=== PATIENT | male | born 1965 | race Caucasian/White ===

== ENCOUNTER → 2017-08-10 | Outpatient (CLI) | payer MEDICARE, OTHER ==
[~2017-08-10] VITALS: Ht 185.4 cm; Wt 70.8 kg
[~2017-08-10] MED LIST: ASPI-183 PO; CHLORHEXIDINE GLUCONATE 2 % 1 PACK (2 CLOTHS) TOPICAL PRN; DILA2TAB4 PO; DIPH2.5T14 PO; FURO40TA PO; GABA600T PO; INSULIN HUMAN REGULAR 1,000 UNITS/10 ML VIAL SQ PRN; LACTATED RINGER'S 1000 ML IV PRN; LIDOCAINE HCL 1% PF 5 ML SYRINGE OTHER ONE; LISI10TA3 PO; METOPROLOL TARTRATE 25 MG TAB PO PRN; MORP1TAB25 PO; MORP1TAB26 PO; PANT20TA2 PO; PERC10TA27 PO; POVIDONE IODINE 5% (ANTISEPSIS KIT) 4 APPLICATIONS EACH NARE PRN; PRED5TAB PO; PROPOFOL 200 MG/20 ML AMP IV ONE; SODIUM CHLORID 0.9% 500 ML IV PRN
--- NOTE | 2017-08-10 10:53 | PD.PROCEDR ---
GI Procedure Referring physician Dr. Valdez PROCEDURE PERFORMED Upper endoscopy with biopsy Colonoscopy with biopsy, snare polypectomy INDICATION FOR PROCEDURE Diarrhea, patient has history of lung cancer was on chemotherapy therapy until recently PROCEDURE: The procedure, risks and benefits were discussed with Mr. Edward and informed consent was obtained. Anesthesia sedated him with Diprivan. He was placed in the left lateral decubitus position. EGD: The Pentax videoscope was introduced through the oropharynx and advanced to the second portion of the duodenum under direct visualization. Retroflexion was performed in the stomach. Biopsy from the EG junction, from the duodenum, from the antrum Colonoscopy: The Pentax videoscope was introduced through the rectum and advanced to cecum. Retroflexion was performed in the rectum. Colonic prep was fair ESTIMATED BLOOD LOSS: None SPECIMENS REMOVED: GE junction, antrum, duodenum for diarrhea evaluation, ascending colon, sigmoid , sigmoid polyp COMPLICATIONS: None IMPRESSION: Upper endoscopy Irregular Z line biopsy was done at the EG junction Mild to moderate gastritis biopsy was done from the antrum to rule out H. pylori Duodenum was normal but biopsy was done for the diarrhea evaluation Colonoscopy Some stool throughout the colon may interfere with the vision of small lesion 8 mm polyp in the sigmoid removed by snare Random biopsy from the ascending colon from normal mucosa Biopsy from the sigmoid there was some redness in the sigmoid most likely nonspecific Internal hemorrhoid The diarrhea possibly related to side effect from chemotherapy PLAN: Await biopsy results No NSAIDs Follow up in office in 2-3 weeks Mark Foster MD Aug 10, 2017 10:53
[2017-08-10 11:30] VITALS: BP 144/84; PULSE 110; RESP 18; TEMP 98.1; O2SAT 97
--- NOTE | 2017-08-10 18:42 | EKG ---
Date Performed: 08/10/2017 Time Performed: 08:11:04 PTAGE: 51 years EKG: SINUS TACHYCARDIA ABNORMAL RHYTHM ECG NO PREVIOUS TRACING DOCTOR: Yomi White Interpretating Date/Time 08/10/2017 18:40:42
== END ==
LOC: HEND 07:46
PROVIDERS: ATTEND Hospitalist
DX: R19.7 Diarrhea, unspecified (principal); Z85.118 Personal history of other malignant neoplasm of bronchus and lung; K22.9 Disease of esophagus, unspecified; K29.70 Gastritis, unspecified, without bleeding; D12.5 Benign neoplasm of sigmoid colon; K64.8 Other hemorrhoids; R00.0 Tachycardia, unspecified
CPT/HCPCS: 88305; 88312; 93005

== ENCOUNTER 2017-10-23 07:53 | Inpatient (IN) ==
[2017-10-29] MEDS ORDERED: Dextrose 50% in Water 50 ML Vial IV.PUSH PRN
[2017-10-29] MEDS ORDERED: Bisacodyl 10 MG Supp RECTAL PRN
[2017-10-29] MEDS ORDERED: hydrALAZINE 10 MG Tablet PO PRN
[2017-10-29] MEDS ORDERED: Vancomycin Consult Pharmacy 1 EACH OTHER SCH
[2017-10-29] MEDS: dilTIAZem 60 MG Tablet PO SCH ×5 (00:26→23:54)
[2017-10-29] MEDS: Vancomycin Inj 1,250 MG in Sodium Chlor 0.9% Inj 250 ML IV.SIG SCH ×2 (03:34→18:24)
[2017-10-29] MEDS: oxyCODONE/Acetaminophen 10/325 Tablet PO PRN ×3 (03:41→19:42)
[2017-10-29 04:47] LABS: Baso % (Auto) 0.7 % (0.0-2.0); Eos # (Auto) 0.2 th/mm3 (0.0-0.4); Eos % (Auto) 5.9 % (0.0-4.0); Hematocrit 30.8 % (39.0-51.0); Hemoglobin 10.9 gm/dL (13.0-17.0); Lymph % (Auto) 23.3 % (9.0-44.0); Mean Corpuscular HGB Conc 35.3 % (32.0-36.0); Mean Corpuscular Hemoglobin 31.9 pg (27.0-34.0); Mean Corpuscular Volume 90.2 fL (80.0-100.0); Mean Platelet Volume 9.2 fL (7.0-11.0); Mono # (Auto) 0.5 th/mm3 (0.0-0.9); Neut # (Auto) 2.4 th/mm3 (1.8-7.7); Neut % (Auto) 58.1 % (16.0-70.0); Platelet Count 124 th/mm3 (150-450); Red Blood Count 3.42 mil/mm3 (4.50-5.90); Red Cell Distribution Width 13.9 % (11.6-17.2); White Blood Count 4.1 th/mm3 (4.0-11.0)
[2017-10-29 05:08] LABS: Anion Gap 9 meq/L (5-15); Blood Urea Nitrogen 10 mg/dL (7-18); Calcium 8.3 mg/dL (8.5-10.1); Carbon Dioxide 32.5 meq/L (21.0-32.0); Chloride 93 meq/L (98-107); Glomerular Filtration Rate Greater Than 89 mL/min (>89); Glucose,Random 109 mg/dL (74-106); Potassium 3.1 meq/L (3.5-5.1); Sodium 134 meq/L (136-145)
[2017-10-29] MEDS: Morphine Sulfate 100 MG SR Tablet PO SCH ×3 (06:23→21:55)
[2017-10-29] MEDS: Gabapentin 300 MG Capsule PO SCH ×3 (09:54→17:58)
[2017-10-29] MEDS: Senna/Docusate Sodium 8.6/50 MG Tablet PO SCH ×2 (09:54→21:44)
[2017-10-29] MEDS: Albumin Human 25% Inj 50 ML IV.SIG SCH ×2 (09:54→17:54)
[2017-10-29] MEDS: Famotidine 20 MG Tablet PO SCH ×2 (09:54→21:47)
[2017-10-29] MEDS: Enoxaparin Inj 40 MG/0.4 ML Syringe SQ SCH (12:10)
[2017-10-29 15:05] LABS: Anion Gap 9 meq/L (5-15); Blood Urea Nitrogen 9 mg/dL (7-18); Carbon Dioxide 31.9 meq/L (21.0-32.0); Chloride 93 meq/L (98-107); Glomerular Filtration Rate Greater Than 89 mL/min (>89); Sodium 134 meq/L (136-145)
[2017-10-29 15:06] LABS: Calcium 8.2 mg/dL (8.5-10.1); Glucose,Random 91 mg/dL (74-106)
[2017-10-29 15:20] LABS: Potassium 2.6 meq/L (3.5-5.1)
[2017-10-29] MEDS ORDERED: Potassium Chlor 20 mEq Premix 20 MEQ/100 ML PIGGYBACK IV.SIG ONE (16:10)
--- NOTE | 2017-10-29 16:10 | P.PN ---
Subjective Interval history: Follow-up edema. States he is swelling slightly better able to ambulate Physical Exam Vital signs: Vital Signs 10/29/17 03:00 10/29/17 04:00 10/29/17 04:43 Temperature Pulse Rate 109 H 121 H Respiratory Rate 19 18 Blood Pressure 88/59 L Pulse Oximetry 99 10/29/17 05:00 10/29/17 06:00 10/29/17 07:00 Temperature Pulse Rate 101 H 107 H 106 H Respiratory Rate 14 Blood Pressure 95/67 L Pulse Oximetry 10/29/17 10:00 10/29/17 11:00 10/29/17 12:06 Temperature 97.9 F Pulse Rate 89 105 H Respiratory Rate 18 15 Blood Pressure 83/55 L Pulse Oximetry 100 10/29/17 15:00 Temperature 98.2 F Pulse Rate 113 H Respiratory Rate 15 Blood Pressure 83/54 L Pulse Oximetry Intake & Output 10/28/17 10/29/17 10/29/17 18:59 06:59 18:59 Intake Total 562 / 562 Output Total 1400 / 1400 Balance -838 / -838 Weight 72 kg Intake: IV 262 / 262 Vancomycin Inj 1,250 MG In NS 262 / 262 Inj 250 ML @ 250 mls/hr IV.SIG Q12H [facility] Rx#:[id number] Oral 300 / 300 Output: Urine 1400 / 1400 Other: # Bowel Movements 1 GENERAL: SKIN: Warm and dry. Erythema about the same in the lower abdominal area CARDIOVASCULAR: Regular rate and rhythm without murmurs, gallops, or rubs. RESPIRATORY: Breath sounds equal bilaterally. No accessory muscle use. GASTROINTESTINAL: Abdomen soft, non-tender, nondistended. MUSCULOSKELETAL: No cyanosis with bilateral lower extremity pitting edema. Scrotal edema is improving BACK: Nontender without obvious deformity. No CVA tenderness. Results - Labs CBC & Chem 7: 10/29/17 03:44 10/29/17 12:03 Labs: Laboratory Results - last 24 hr 10/27/17 10/27/17 10/28/17 04:56 04:56 05:18 WBC 13.8 H RBC 3.90 L Hgb 12.3 L Hct 35.8 L MCV 91.8 MCH 31.5 MCHC 34.3 RDW 14.9 Plt Count 157 MPV 9.1 Neut % (Auto) 73.1 H Lymph % (Auto) 11.2 Rhea % (Auto) 12.8 H Eos % (Auto) 2.5 Baso % (Auto) 0.4 Neut # (Auto) 10.1 H Lymph # (Auto) 1.5 Rhea # (Auto) 1.8 H Eos # (Auto) 0.3 Baso # (Auto) 0.0 CBC Comment DIFF FINAL WBC Differential Differential Comment Sodium 129 L 132 L Potassium 4.5 3.1 L D Chloride 95 L 94 L Carbon Dioxide 25.6 26.4 Anion Gap 8 12 BUN 19 H 15 Creatinine 0.74 0.88 Estimated GFR 111 91 Random Glucose 115 H 127 H Hemoglobin A1c 4.9 Calcium 8.1 L 7.8 L Phosphorus 3.1 3.6 Magnesium 2.2 1.9 Total Bilirubin 0.6 0.5 AST 38 H 47 H ALT 25 32 Alkaline Phosphatase 91 101 Total Protein 6.4 6.3 L Albumin 2.3 L 2.2 L Free T4 1.46 TSH 3rd Generation 2.920 10/28/17 10/29/17 10/29/17 05:18 03:44 03:44 WBC 7.1 4.1 RBC 3.51 L 3.42 L Hgb 11.2 L 10.9 L Hct 32.5 L 30.8 L MCV 92.4 90.2 MCH 32.0 31.9 MCHC 34.6 35.3 RDW 14.4 13.9 Plt Count 122 L 124 L MPV 9.4 9.2 Neut % (Auto) 63.8 58.1 Lymph % (Auto) 17.3 23.3 Rhea % (Auto) 13.4 H 12.0 H Eos % (Auto) 4.9 H 5.9 H Baso % (Auto) 0.6 0.7 Neut # (Auto) 4.5 2.4 Lymph # (Auto) 1.2 1.0 Rhea # (Auto) 1.0 H 0.5 Eos # (Auto) 0.3 0.2 Baso # (Auto) 0.0 0.0 CBC Comment DIFF FINAL WBC Differential . Differential Comment Auto diff final Sodium 134 L Potassium 3.1 L Chloride 93 L Carbon Dioxide 32.5 H Anion Gap 9 BUN 10 Creatinine 0.59 L Estimated GFR Greater than 89 Random Glucose 109 H Hemoglobin A1c Calcium 8.3 L Phosphorus Magnesium 2.0 Total Bilirubin AST ALT Alkaline Phosphatase Total Protein Albumin Free T4 TSH 3rd Generation 10/29/17 12:03 WBC RBC Hgb Hct MCV MCH MCHC RDW Plt Count MPV Neut % (Auto) Lymph % (Auto) Rhea % (Auto) Eos % (Auto) Baso % (Auto) Neut # (Auto) Lymph # (Auto) Rhea # (Auto) Eos # (Auto) Baso # (Auto) CBC Comment WBC Differential Differential Comment Sodium 134 L Potassium 2.6 L* Chloride 93 L Carbon Dioxide 31.9 Anion Gap 9 BUN 9 Creatinine 0.55 L Estimated GFR Greater than 89 Random Glucose 91 Hemoglobin A1c Calcium 8.2 L Phosphorus Magnesium Total Bilirubin AST ALT Alkaline Phosphatase Total Protein Albumin Free T4 TSH 3rd Generation Assessment and Plan - Assessment (1) Cirrhosis of liver Code(s): K74.60 - Unspecified cirrhosis of liver Status: Acute - Plan PROCEDURE PERFORMED: Left axillofemoral-femoral with 8 mm ringed PTFE. 1. Respiratory insufficiency. Resolved 2. PAD with infrarenal aortic occlusion. Status post left ex fem-fem bypass. Stable continue aspirin Lipitor 3. Hypertension. Borderline low continue antihypertensives and pain medications with hold parameters 4. Anasarca with hypoalbuminemia history cirrhosis of liver. Continue IV diuresis with Lasix, Zaroxolyn and IV albumin 5. Chronic pain. Counseled regarding narcotics. Patient followed by a local oncologist who prescribed his pain medication history of metastatic lung cancer 6. Cellulitis with recent vascular intervention with prosthetics. No fever or leukocytosis Ct IV vanco 7. Hypokalemia. Will replace with 40 mEq p.o. potassium 3 times a day and 20 mg IV potassium 1 repeat BMP and magnesium in the morning Patient is GI prophylaxis with Pepcid 20 mg b.i.d. DVT prophylaxis- on Lovenox 40 mg daily
[2017-10-29] MEDS: traZODone 50 MG Tablet PO SCH (21:46)
[2017-10-30] MEDS ORDERED: Pharmacy Ordered Lab Info OTHER ONE (03:45)
[2017-10-30] MEDS: Vancomycin Inj 1,250 MG in Sodium Chlor 0.9% Inj 250 ML IV.SIG SCH ×2 (04:01→16:12)
[2017-10-30 04:15] LABS: Anion Gap 10 meq/L (5-15); Blood Urea Nitrogen 10 mg/dL (7-18); Calcium 8.2 mg/dL (8.5-10.1); Carbon Dioxide 29.6 meq/L (21.0-32.0); Chloride 97 meq/L (98-107); Glomerular Filtration Rate Greater Than 89 mL/min (>89); Glucose,Random 117 mg/dL (74-106); Potassium 3.1 meq/L (3.5-5.1); Sodium 137 meq/L (136-145)
[2017-10-30 04:17] LABS: Vancomycin,Trough 12.7 mcg/mL (5.0-10.0)
[2017-10-30] MEDS: Morphine Sulfate 100 MG SR Tablet PO SCH ×3 (06:10→21:19)
[2017-10-30] MEDS: dilTIAZem 60 MG Tablet PO SCH ×4 (08:46→23:55)
[2017-10-30] MEDS: Albumin Human 25% Inj 50 ML IV.SIG SCH ×2 (09:08→17:15)
[2017-10-30] MEDS: Famotidine 20 MG Tablet PO SCH ×2 (09:10→21:20)
[2017-10-30] MEDS: Gabapentin 300 MG Capsule PO SCH ×3 (09:10→17:15)
[2017-10-30] MEDS: oxyCODONE/Acetaminophen 10/325 Tablet PO PRN ×3 (09:13→22:34)
[2017-10-30] MEDS: Senna/Docusate Sodium 8.6/50 MG Tablet PO SCH ×2 (09:15→21:20)
--- NOTE | 2017-10-30 10:55 | P.PN ---
Subjective Interval history: Follow-up bilateral lower extremity edema. States swelling is improved even though the weight has slightly increased. Plan to be discharged to SNF tomorrow after removal of packing by vascular surgery who wanted to continue IV vancomycin for another 7 days. Vascular access consulted for midline placement. Physical Exam Vital signs: Vital Signs 10/29/17 11:00 10/29/17 12:06 10/29/17 15:00 Temperature 97.9 F 98.2 F Pulse Rate 105 H 113 H Respiratory Rate 18 15 15 Blood Pressure 83/55 L 83/54 L Pulse Oximetry 100 10/29/17 16:00 10/29/17 17:00 10/29/17 18:00 Temperature Pulse Rate 108 H 108 H 116 H Respiratory Rate Blood Pressure Pulse Oximetry 10/29/17 19:00 10/29/17 19:31 10/29/17 20:00 Temperature 98.6 F Pulse Rate 123 H 120 H 104 H Respiratory Rate 22 Blood Pressure 109/61 Pulse Oximetry 10/29/17 20:30 10/29/17 21:00 10/29/17 22:00 Temperature Pulse Rate 114 H 118 H Respiratory Rate 20 Blood Pressure Pulse Oximetry 10/29/17 22:45 10/29/17 23:00 10/29/17 23:15 Temperature 98.1 F Pulse Rate 97 H 104 H Respiratory Rate 18 19 Blood Pressure 82/50 L Pulse Oximetry 96 10/30/17 00:00 10/30/17 01:00 10/30/17 02:00 Temperature Pulse Rate 105 H 98 H 102 H Respiratory Rate Blood Pressure Pulse Oximetry 10/30/17 03:00 10/30/17 04:00 10/30/17 05:00 Temperature 98.2 F Pulse Rate 93 H 104 H 96 H Respiratory Rate 20 Blood Pressure 84/50 L Pulse Oximetry 97 10/30/17 06:00 Temperature Pulse Rate 97 H Respiratory Rate Blood Pressure Pulse Oximetry Intake & Output 10/29/17 10/30/17 10/30/17 18:59 06:59 18:59 Intake Total 780 / 780 1055.0 / 1055.0 Output Total 750 / 750 625 / 625 Balance 30 / 30 430.0 / 430.0 Weight 73.1 kg Intake: IV 300 / 300 575.0 / 575.0 Flexbumin 25% Inj 50 ML @ 60 50 / 50 50 / 50 mls/hr IV.SIG BIDPC [facility] Rx#: [id number] Vancomycin Inj 1,250 MG In NS 250 / 250 525.0 / 525.0 Inj 250 ML @ 250 mls/hr IV.SIG Q12H [facility] Rx#:[id number] Oral 480 / 480 480 / 480 Output: Urine 750 / 750 625 / 625 Other: # Voids 3 Date of Last Bowel Movement 10/29/17 Narrative: SKIN: Warm and dry. Erythema about the same in the lower abdominal area CARDIOVASCULAR: Regular rate and rhythm without murmurs, gallops, or rubs. RESPIRATORY: Breath sounds equal bilaterally. No accessory muscle use. GASTROINTESTINAL: Abdomen soft, non-tender, nondistended. MUSCULOSKELETAL: No cyanosis with bilateral lower extremity pitting edema. Scrotal edema is improving BACK: Nontender without obvious deformity. No CVA tenderness. Results - Labs CBC & Chem 7: 10/29/17 03:44 10/30/17 03:33 Laboratory Results - last 24 hr 10/29/17 10/30/17 12:03 03:33 Sodium 134 L 137 Potassium 2.6 L* 3.1 L Chloride 93 L 97 L Carbon Dioxide 31.9 29.6 Anion Gap 9 10 BUN 9 10 Creatinine 0.55 L 0.70 Estimated GFR Greater than 89 Greater than 89 Random Glucose 91 117 H Calcium 8.2 L 8.2 L Vancomycin Trough 12.7 H - Procedures Left axillofemoral-femoral with 8 mm ringed PTFE. Assessment and Plan - Assessment (1) Cirrhosis of liver Code(s): K74.60 - Unspecified cirrhosis of liver Status: Acute - Plan 1. Respiratory insufficiency. Resolved 2. PAD with infrarenal aortic occlusion. Status post left ex fem-fem bypass. Stable continue aspirin Lipitor 3. Hypertension. Borderline low continue antihypertensives and pain medications with hold parameters 4. Anasarca with hypoalbuminemia history cirrhosis of liver. Still with significant fluid overload but responding to diuresis. Continue IV Lasix dose increased yesterday, Zaroxolyn and IV albumin 5. Chronic pain. Counseled regarding narcotics. Patient followed by a local oncologist who prescribed his pain medication history of metastatic lung cancer 6. Cellulitis with recent vascular intervention with prosthetics. No fever or leukocytosis Ct IV vanco. Midline requested 7. Hypokalemia. Increase to 60 mEq p.o. potassium 3 times a day and repeat BMP and magnesium in the morning Patient is GI prophylaxis with Pepcid 20 mg b.i.d. DVT prophylaxis- on Lovenox 40 mg daily Discharge Planning: SNF tomorrow
[2017-10-30] MEDS: Enoxaparin Inj 40 MG/0.4 ML Syringe SQ SCH (13:40)
[2017-10-30 15:43] LABS: Magnesium 1.9 mg/dL (1.5-2.5)
[2017-10-30] MEDS: traZODone 50 MG Tablet PO SCH (21:21)
[2017-10-31] MEDS: oxyCODONE/Acetaminophen 10/325 Tablet PO PRN ×4 (02:23→19:48)
[2017-10-31] MEDS: Vancomycin Inj 1,250 MG in Sodium Chlor 0.9% Inj 250 ML IV.SIG SCH ×2 (03:16→18:30)
[2017-10-31] MEDS: dilTIAZem 60 MG Tablet PO SCH ×5 (05:14→23:53)
[2017-10-31] MEDS: Morphine Sulfate 100 MG SR Tablet PO SCH ×3 (05:31→22:01)
[2017-10-31 06:34] LABS: Anion Gap 10 meq/L (5-15); Blood Urea Nitrogen 13 mg/dL (7-18); Calcium 8.6 mg/dL (8.5-10.1); Carbon Dioxide 27.4 meq/L (21.0-32.0); Chloride 100 meq/L (98-107); Glomerular Filtration Rate Greater Than 89 mL/min (>89); Glucose,Random 116 mg/dL (74-106); Potassium 3.4 meq/L (3.5-5.1); Sodium 137 meq/L (136-145)
[2017-10-31] MEDS: Albumin Human 25% Inj 50 ML IV.SIG SCH (08:30)
[2017-10-31] MEDS: Famotidine 20 MG Tablet PO SCH ×2 (08:32→22:00)
[2017-10-31] MEDS: Gabapentin 300 MG Capsule PO SCH ×3 (08:32→18:31)
[2017-10-31] MEDS: Senna/Docusate Sodium 8.6/50 MG Tablet PO SCH ×2 (08:35→22:01)
[2017-10-31] MEDS: Enoxaparin Inj 40 MG/0.4 ML Syringe SQ SCH (11:22)
[2017-10-31] MEDS ORDERED: Pharmacy Ordered Lab Info OTHER ONE (15:45)
--- NOTE | 2017-10-31 17:30 | P.PN ---
Subjective Interval history: Follow up for PVD s/p surgery, possible cellulitis, Cirrhosis. Patient is currently doing well. No fever, chills. No CP, SOB. Physical Exam Vital signs: Vital Signs 10/30/17 17:43 10/30/17 19:00 10/30/17 20:00 Temperature 98.1 F Pulse Rate 111 H 100 H 110 H Respiratory Rate 18 Blood Pressure 86/57 L Pulse Oximetry 98 10/30/17 21:00 10/30/17 22:00 10/30/17 23:00 Temperature Pulse Rate 102 H 104 H 89 Respiratory Rate Blood Pressure Pulse Oximetry 10/30/17 23:27 10/31/17 00:00 10/31/17 01:00 Temperature 98.0 F Pulse Rate 100 H 92 H 91 H Respiratory Rate 15 Blood Pressure 85/55 L Pulse Oximetry 98 10/31/17 02:00 10/31/17 03:00 10/31/17 03:35 Temperature 98.2 F Pulse Rate 92 H 93 H 84 Respiratory Rate 16 Blood Pressure 81/52 L Pulse Oximetry 99 10/31/17 04:09 10/31/17 05:00 10/31/17 06:00 Temperature Pulse Rate 62 86 77 Respiratory Rate Blood Pressure Pulse Oximetry 10/31/17 07:00 10/31/17 08:00 10/31/17 09:00 Temperature 97.6 F Pulse Rate 88 92 H 90 Respiratory Rate 16 Blood Pressure 102/81 Pulse Oximetry 100 10/31/17 10:00 10/31/17 11:00 10/31/17 12:00 Temperature 97.9 F Pulse Rate 104 H 91 H 98 H Respiratory Rate 14 Blood Pressure 105/65 Pulse Oximetry 99 10/31/17 13:00 10/31/17 14:00 10/31/17 15:00 Temperature 97.7 F Pulse Rate 102 H 94 H 93 H Respiratory Rate 16 Blood Pressure 108/57 L Pulse Oximetry 100 10/31/17 16:00 Temperature Pulse Rate 94 H Respiratory Rate Blood Pressure Pulse Oximetry Intake & Output 10/30/17 10/31/17 10/31/17 18:59 06:59 18:59 Intake Total 1010 / 1010 1515.00 / 1515.00 50 / 50 Output Total 975 / 975 600 / 600 Balance 35 / 35 915.00 / 915.00 50 / 50 Weight 74.9 kg Intake: IV 50 / 50 675.00 / 675.00 50 / 50 Flexbumin 25% Inj 50 ML @ 60 50 / 50 50 / 50 50 / 50 mls/hr IV.SIG BIDPC [facility] Rx#: [id number] Vancomycin Inj 1,250 MG In NS 525.00 / 525.00 Inj 250 ML @ 250 mls/hr IV.SIG Q12H [facility] Rx#:[id number] Oral 960 / 960 840 / 840 Output: Urine 975 / 975 600 / 600 Other: # Voids 1 Date of Last Bowel Movement 10/30/17 # Bowel Movements 1 Narrative: GENERAL: Alert, Oriented x 3, NAD. SKIN: Warm and dry. HEAD: Normocephalic. EYES: No scleral icterus. No injection or drainage. NECK: Supple, trachea midline. No JVD or lymphadenopathy. CARDIOVASCULAR: Regular rate and rhythm without murmurs, gallops, or rubs. RESPIRATORY: Breath sounds equal bilaterally. No accessory muscle use. GASTROINTESTINAL: Abdomen soft, non-tender, nondistended. MUSCULOSKELETAL: No cyanosis. 3+ edema in lower ext. BACK: Nontender without obvious deformity. No CVA tenderness. Results - Labs CBC & Chem 7: 10/29/17 03:44 10/31/17 05:50 Laboratory Results - last 24 hr 10/31/17 10/31/17 05:50 16:14 Sodium 137 Potassium 3.4 L Chloride 100 Carbon Dioxide 27.4 Anion Gap 10 BUN 13 Creatinine 0.75 Estimated GFR Greater than 89 Random Glucose 116 H Calcium 8.6 Vancomycin Trough 11.7 H - Procedures Left axillofemoral-femoral with 8 mm ringed PTFE. Assessment and Plan - Assessment (1) Cirrhosis of liver Code(s): K74.60 - Unspecified cirrhosis of liver Status: Acute - Plan Mr. Edward is a pleasant 51-year-old male with a history of liver cirrhosis, metastatic lung cancer who was admitted to the hospital on 10/23/2017 due to bilateral lower extremity rest pain. CTA shows infrarenal aortic occlusion. Patient was admitted for extra anatomic bypass. Phamfemoral bypass was completed on 10/24/2017. Peripheral vascular disease -Status post femorofemoral bypass on 10/24/2017. -Continue aspirin 325 mg p.o. daily, atorvastatin 40 mg p.o. nightly. Suspected cellulitis -patient is currently on IV vancomycin. -No purulent drainage or such. -Will discharge patient on Keflex and Bactrim -these 2 antibiotics will cover her, and bacteria to cause cellulitis including Streptococcus as well as MRSA. Liver cirrhosis Lower extremity edema -Continue p.o. furosemide. Patient is encouraged to keep his legs elevated. -Also encourage patient to discuss with his GI doctor regarding use of Aldactone. -Maintain a low-salt or no added salt diet. Full code. Lovenox.
[2017-10-31] MEDS: Furosemide 20 MG Tablet PO SCH (18:32)
[2017-10-31] MEDS: traZODone 50 MG Tablet PO SCH (22:00)
[2017-11-01] MEDS: oxyCODONE/Acetaminophen 10/325 Tablet PO PRN (02:38)
[2017-11-01] MEDS: Vancomycin Inj 1,250 MG in Sodium Chlor 0.9% Inj 250 ML IV.SIG SCH (04:00)
[2017-11-01] MEDS: dilTIAZem 60 MG Tablet PO SCH (06:23)
[2017-11-01] MEDS: Morphine Sulfate 100 MG SR Tablet PO SCH (08:37)
[2017-11-01] MEDS: Famotidine 20 MG Tablet PO SCH (08:37)
[2017-11-01] MEDS: Gabapentin 300 MG Capsule PO SCH (08:38)
[2017-11-01] MEDS: Senna/Docusate Sodium 8.6/50 MG Tablet PO SCH (08:38)
[2017-11-01] MEDS: Furosemide 20 MG Tablet PO SCH (08:38)
--- NOTE | 2017-11-01 10:10 | P.DCO ---
- Physical Therapy Order: Evaluate and treat, Improve ambulation, Strength and gait training - Home Health Nursing Order: Medical education, Signs/symptoms of disease process, Medication education-adverse effect, Nursing assessment with vital signs - Certification I have seen patient Gautam Edward on 11/01/17. My clinical findings support the need for the requested home health care services because: Limited mobility due to disease progression, Patient has SOB, Deconditioned with increased weakness, Limited ability to care for self, High risk of falls, Infection with risk of complications I certify that my clinical findings support that this patient is homebound because: Post-op weakness, Unsteady gait/balance, Need for psychosocial assistance, Unable to use public transportation
--- NOTE | 2017-11-01 12:52 | P.DS ---
Date of admission: 10/23/17 07:53 Primary care physician: Lanie Valdez Brief History from admission: 51 yo male with B LE rest pain but no wounds. CTA shows infrarenal aortic occlusion. Presents for extra-anatomic bypass. No change in health that would preclude surgery DS: Diagnosis - Discharge Diagnosis (1) PVD (peripheral vascular disease) Status: Acute (2) Cirrhosis of liver Status: Acute DS: Medications - Discharge Medications Prescriptions: atorvastatin 40 mg PO HS #90 tab cephalexin [Keflex] 500 mg PO QID #30 cap sulfamethoxazole-trimethoprim [Bactrim DS] 1 tab PO Q12H #14 tab DS: Summary Hospital Course: Mr. Edward is a pleasant 51-year-old male with a history of liver cirrhosis, metastatic lung cancer who was admitted to the hospital on 10/23/2017 due to bilateral lower extremity rest pain. CTA shows infrarenal aortic occlusion. Patient was admitted for extra anatomic bypass. Phamfemoral bypass was completed on 10/24/2017. Peripheral vascular disease -Status post femorofemoral bypass on 10/24/2017. -Continue aspirin 325 mg p.o. daily, atorvastatin 40 mg p.o. nightly. -Follow up with Dr. Hendrickson within 1-2 weeks after discharge. Suspected cellulitis -patient is currently on IV vancomycin. -No purulent drainage or such. -Will discharge patient on Keflex and Bactrim -these 2 antibiotics will cover her, and bacteria to cause cellulitis including Streptococcus as well as MRSA. Liver cirrhosis Lower extremity edema -Continue p.o. furosemide. Patient is encouraged to keep his legs elevated. -Also encourage patient to discuss with his GI doctor regarding use of Aldactone. -Maintain a low-salt or no added salt diet. Full code. Lovenox while in the hospital. - Time Spent with Patient Total time spent providing and/or coordinating discharge services: Greater than 30 minutes Exam Vital signs: Vital Signs 10/31/17 13:00 10/31/17 14:00 10/31/17 15:00 Temperature 97.7 F Pulse Rate 102 H 94 H 93 H Respiratory Rate 16 Blood Pressure 108/57 L Pulse Oximetry 100 10/31/17 16:00 10/31/17 17:00 10/31/17 18:00 Temperature Pulse Rate 94 H 99 H 100 H Respiratory Rate Blood Pressure Pulse Oximetry 10/31/17 19:00 10/31/17 20:00 10/31/17 21:00 Temperature 98.1 F Pulse Rate 86 100 H 104 H Respiratory Rate 18 Blood Pressure 115/69 Pulse Oximetry 98 10/31/17 22:00 10/31/17 23:00 11/01/17 00:00 Temperature 98.1 F Pulse Rate 92 H 92 H 104 H Respiratory Rate 18 Blood Pressure 81/61 L Pulse Oximetry 98 11/01/17 01:00 11/01/17 02:00 11/01/17 03:00 Temperature 98.2 F Pulse Rate 98 H 100 H 90 Respiratory Rate 16 Blood Pressure 113/65 Pulse Oximetry 100 11/01/17 04:00 11/01/17 05:00 11/01/17 06:00 Temperature Pulse Rate 91 H 105 H 88 Respiratory Rate Blood Pressure Pulse Oximetry 11/01/17 06:23 11/01/17 07:00 11/01/17 08:00 Temperature 98.1 F Pulse Rate 110 H 104 H Respiratory Rate 20 Blood Pressure 84/52 L 96/52 L Pulse Oximetry 98 11/01/17 09:00 11/01/17 10:00 11/01/17 11:00 Temperature 97.9 F Pulse Rate 90 95 H 99 H Respiratory Rate 20 Blood Pressure 91/56 L Pulse Oximetry Intake & Output 10/31/17 11/01/17 11/01/17 18:59 06:59 18:59 Intake Total 770 / 770 1005.0 / 1005.0 Output Total 600 / 600 650 / 650 Balance 170 / 170 355.0 / 355.0 Weight 76.8 kg Intake: IV 50 / 50 525.0 / 525.0 Flexbumin 25% Inj 50 ML @ 60 50 / 50 mls/hr IV.SIG BIDPC ALANA Rx#: [id number] Vancomycin Inj 1,250 MG In NS 525.0 / 525.0 Inj 250 ML @ 250 mls/hr IV.SIG Q12H ALA[facility] Rx#:[id number] Oral 720 / 720 480 / 480 Output: Urine 600 / 600 650 / 650 Other: # Voids 1 Date of Last Bowel Movement 11/01/17 11/01/17 # Bowel Movements 1 1 Narrative: GENERAL: Alert, oriented x 3, NAD. SKIN: Warm and dry. HEAD: Normocephalic. EYES: No scleral icterus. No injection or drainage. NECK: Supple, trachea midline. No JVD or lymphadenopathy. CARDIOVASCULAR: Regular rate and rhythm without murmurs, gallops, or rubs. RESPIRATORY: Breath sounds equal bilaterally. No accessory muscle use. GASTROINTESTINAL: Abdomen soft, non-tender, nondistended. MUSCULOSKELETAL: No cyanosis, LE edema 2+. There is moderate scrotal edema as well. No obvious purulence noted. Surgical site appears to be clean. BACK: Nontender without obvious deformity. No CVA tenderness. Results Procedures completed during hospitalization: Left axillofemoral-femoral with 8 mm ringed PTFE. Labs on day of discharge: Labs from last 24 hours 10/31/17 16:14 Vancomycin Trough 11.7 H Discharge Plan - Discharge Disposition Patient Disposition: /Home Health Service - Discharge Condition Condition: Stable - Discharge Order Discharge Orders: Discharge Order (Routine); Ordered 11/01/17 Ordered By: Brittni Nguyễn - Discharge Details Anticipated Discharge Date: 11/01/17 - Physicians Team Primary Care Provider: Lanie Valdez Attending Provider: Brittni Nguyễn Other Providers: Scooter Hendrickson MD ; Prema Giang MD ; Lenny Mathis ; Yovanny Hampton DO - Rxs /Orders / Referrals /Forms Prescriptions: New atorvastatin 40 mg Tablet 40 mg PO HS Qty: 90 RF: 3 cephalexin [Keflex] 500 mg Capsule 500 mg PO QID Qty: 30 RF: 0 sulfamethoxazole-trimethoprim [Bactrim DS] 800-160 mg Tablet 1 tab PO Q12H Qty: 14 RF: 0 Continue aspirin 325 mg Tablet 325 mg PO DAILY furosemide 40 mg Tablet 40 mg PO DAILY gabapentin 600 mg Tablet 600 mg PO TID hydromorphone 2 mg Tablet 2 mg PO Q4H PRN (Reason: Pain) morphine 60 mg Tablet Extended Release 60 mg PO Q8H oxycodone-acetaminophen [Percocet] 10-325 mg Tablet 1 tab PO Q4H PRN (Reason: Pain) trazodone 50 mg Tablet 50 mg PO HS [facility]errals: [facility] - See Instructions Scooter Hendrickson MD [Physician] - See Instructions (Follow up within one week. ) Lanie Valdez [Primary Care Provider] - See Instructions - Post Discharge Care Plan Care Plan Goals: Your Health Problems: Goals to Promote Your Health: * To prevent worsening of your condition * To maintain your health at the optimal level Directions to Meet Your Goals: * Take your medications as prescribed * Follow your dietary instruction * Follow activity as directed * Keep your appointments as scheduled * Take your immunizations and boosters as scheduled * If your symptoms worsen call your PCP * If no PCP go to Urgent Care or Emergency Room Smoking is dangerous to your health. Avoid second hand smoke. You may reach the 24-hour crisis hotline for domestic abuse at . * * Discharge Care Plan Goals for Coronary Artery Bypass Surgery You have had Coronary Artery Bypass Graft Surgery (also called CABG, aldo mckeon). This surgery created new pathways around blocked parts of your heart s blood vessels, allowing blood to reach your heart muscle. Directions to Meet your Goals: 1. Pain Relief: You will recover faster after surgery if your pain is kept under control: * Take pain medicine as directed by your doctor. * Dont be surprised if you feel sharp pains as your breastbone heals or if you have soreness in your incision during changes in weather. * Tell your doctor if you have questions about what youre feeling, if your medicines dont reduce your pain, or if you suddenly feel worse. 2. Activity: * Dont drive until your doctor says its OK. And never drive while taking opioid pain medicine. * Ask someone to stand nearby while you shower or do other activities, just in case you need help. * Weigh yourself every day, at the same time of day, and in the same kind of clothes. Quick weight gain can be a sign of a problem that needs your doctor's attention. * Follow your doctor's more specific weight restrictions. Dont lift anything heavier than 5 pounds. * Until approved by doctor, avoid mowing the lawn, vacuuming, driving, and doing other activities that could strain your breastbone. 3. Diet and Exercise: * Maintain a healthy weight. If needed, get help to loose extra pounds. * Avoid fatty and fried foods. Stick to lean meats, such as chicken or fish. * Cut back on salt: - Limit canned, dried, packaged, and fast foods. - Dont add salt to your food at the table. - Season foods with herbs instead of salt when you cook * Ask your healthcare provider when you can start a walking program: - If you havent already started a walking program in the hospital, begin with short walks (about 5 minutes) at home. Go a little longer each day. - Choose a safe place with a level surface, such as a local park or mall. - Wear supportive shoes to prevent injury to your knees and ankles. - Walk with someone. Its more fun and helps you stay with it. 4. Prevent Falls/Injury: * If you are unstable on your feet, remember to ask for help from others. * Avoid using very hot water while showering. It can affect your circulation and make you dizzy. * Free up your hands so that you can use them to keep balance. Use a vandana pack , apron, or pockets to carry things. * Arrange your household to keep the items you need handy. Keep everything else out of the way. * Remove items that may cause you to fall, such as throw rugs and electrical cords. * Use nonslip bath mats, grab bars, an elevated toilet seat, and a shower chair in your bathroom * Sit on a shower stool or chair when you shower to keep from falling. 5. Incision Care: Healing takes several weeks. * Check your incision daily for redness, swelling, tenderness, or drainage. * Prevent infection by washing your hands often. If an infection occurs, it will need to be treated right away. * Call your doctor right away if you think you may have an infection. Symptoms include a fever or an incision that leaks white, green, or yellow fluid. * Don't soak your incision in water until your doctor says its OK. This means no hot tubs, bathtubs, or swimming pools. * Follow your doctor's instructions for changing the dressing. * Dont rub the incision, or apply creams or lotions to it. 6. Follow-Up: Do Not miss your follow-up appointment. Keep up with all your appointments and yearly check ups When to call your doctor: Call your doctor right away if you have: Chest pain or a return of the heart symptoms you had before your surgery Fever of 100.4F (38C) or higher, or as directed by your doctor Signs of infection (redness, swelling, drainage, or warmth) at the incision site Shortness of breath Fainting Weight gain of more than 3 pounds in 1 day, more than 5 pounds in 1 week, or whatever weight gain you were told to report by your doctor New or increased swelling in your hands, feet, or ankles Unrelieved pain at the incision site(s) Changes in the location, type, or severity of pain Fast or irregular pulse Persistent abdominal pain Nausea Trouble urinating Any unusual bleeding Call 911: Call 911 right away if you have: Sudden onset of chest pain that is not relieved by medications Shortness of breath
== END 2017-11-01 12:46 | disposition home health service (06) ==
LOC: HCPC 07:53
PROVIDERS: ADMIT Hospitalist; ATTEND Hospitalist

== ENCOUNTER 2017-11-21 15:54 | Inpatient (IN) ==
--- NOTE | 2017-11-21 17:29 | ED ---
HPI General Chief complaint: Skin/Abscess/Foreign Body Stated complaint: Poss infection Time Seen by Provider: 11/21/17 17:03 History of Present Illness HPI narrative: Patient comes emergency department at the advice of his wound care physician Dr. Rubio after having purulent fluid removed from abscess of his right groin earlier today. Patient had a ax fem fem performed by Dr. Hendrickson last month. Patient reports that 5 days ago he started having some swelling and pain in his right groin. Patient reports that the swelling grows and shrinks. Patient reports standing and walking around all day makes the swelling worse. Laying and elevating his feet decrease swelling. Patient reports he was on vancomycin status post surgery and was seen here 3 days ago where he received a dose of dalvance. Patient went to his energy management specialist today recommend he return to the emergency department for further treatment of this abscess. Patient denies any fevers, chest pain, shortness of breath out of the ordinary, abdominal pain, loss change in bowel or bladder, or known injury. Denies any drainage from this. Describes pain as a sharp pain without radiation. Related Data Home Medications Medication Instructions Recorded Confirmed aspirin 325 mg PO DAILY 10/28/17 11/21/17 furosemide 40 mg PO DAILY 10/28/17 11/21/17 gabapentin 600 mg PO TID 10/28/17 11/21/17 hydromorphone 2 mg PO Q4H PRN 10/28/17 11/21/17 morphine 60 mg PO Q8H 10/28/17 11/21/17 oxycodone-acetaminophen [Percocet] 1 tab PO Q4H PRN 10/28/17 11/21/17 trazodone 50 mg PO HS 10/28/17 11/21/17 pantoprazole [Protonix] 40 mg PO DAILY 11/21/17 11/21/17 trazodone 50 mg PO DAILY 11/21/17 11/21/17 Previous Rx's Medication Instructions Recorded atorvastatin 40 mg PO HS #90 tab 11/01/17 Allergies Allergy/AdvReac Type Severity Reaction Status Date / Time cephalexin [From Keflex] Allergy Anaphylaxis Verified 11/21/17 16:01 sulfamethoxazole Allergy Anaphylaxis Verified 11/21/17 16:01 [From Bactrim] trimethoprim [From Bactrim] Allergy Anaphylaxis Verified 11/21/17 16:01 Review of Systems Except as stated in HPI: all other systems reviewed are negative PMFSH Social History Social History Substance History: No History of Abuse Second Hand Smoke Exposure: No Smoking Status: Former smoker Tobacco Type: Cigarettes How Often Do You Have a Drink Containing Alcohol: Never Recent Travel in [facility] within the Last 8 Weeks: No Recent Out of Country Travel within the Last 8 Weeks: No Exam Narrative Exam Narrative: GENERAL: Well-developed, well nourished, in no acute distress, and non-ill appearing. SKIN: Well-healing surgical site in the left groin. Right groin noted tender lump without drainage. No crepitus. Induration noted. HEAD: Atraumatic. Normocephalic. EYES: Pupils equal and round. EOMI. No scleral icterus. No injection or drainage. ENT: No nasal bleeding or discharge. Mucous membranes pink and moist. NECK: Trachea midline. Supple. No nuclear rigidity. RESPIRATORY: No accessory muscle use. No respiratory distress. GASTROINTESTINAL: Abdomen soft, non-tender, nondistended, and no guarding. Hepatic and splenic margins not palpable. No pulsatile mass. MUSCULOSKELETAL: No obvious deformities. No clubbing. No cyanosis. Bilateral dependent edema. Full range of motion. NEUROLOGICAL: Awake and alert. No obvious cranial nerve deficits. Motor grossly within normal limits. Normal speech. PSYCHIATRIC: Appropriate mood and affect; insight and judgment normal. Course Consultations Consultation #1: Discussed patient with Dr. Moeller, vascular surgeon neon glass bender , states he will come evaluate patient in the emergency department. Time: 17:25 Consultation #2: Discussed patient with Dr. Moeller, evaluated patient recommends having patient admitted to medicine for surgical intervention tomorrow. Time: 20:22 Consultation #3: Discussed patient with Dr. Duron, who is agreeable to admit the patient. Time: 20:30 Initial Documented Vital Signs Temperature 97.9 F 11/21/17 16:01 Pulse Rate 104 H 11/21/17 16:01 Respiratory Rate 17 11/21/17 16:01 Blood Pressure 97/66 L 11/21/17 16:01 Pulse Oximetry 100 11/21/17 16:01 Last Documented Vital Signs Temperature 97.9 F 11/21/17 16:01 Pulse Rate 104 H 07/24/18 19:22 Respiratory Rate 16 11/21/17 19:22 Blood Pressure 124/82 11/21/17 19:22 Pulse Oximetry 98 11/21/17 19:22 Medical Decision Making MDM Narrative Medical decision making narrative: Patient seen and examined. Initial laboratory studies were ordered. IV was established patient placed on his current monitoring. Call was placed vascular surgeon came and evaluated patient. Recommends admission to medicine. Discussed this with hospitalist is agreeable to admit patient. Discussed all findings and plan of care patient is agreeable for admission. Discussed patient with Dr. Ward is in agreement plan of care and disposition. All questions were answered. Differential Diagnosis Differential Diagnosis: Postsurgical abscess, seroma, cellulitis Lab Data Result diagrams: 11/21/17 18:20 11/21/17 18:20 Lab Results 11/21/17 11/21/17 11/21/17 Range/Units 18:20 18:20 18:20 WBC 4.0 (4.0-11.0) th/mm3 RBC 3.19 L (4.50-5.90) mil/mm3 Hgb 10.1 L (13.0-17.0) gm/dL Hct 29.6 L (39.0-51.0) % MCV 92.8 (80.0-100.0) fL MCH 31.7 (27.0-34.0) pg MCHC 34.1 (32.0-36.0) % RDW 13.9 (11.6-17.2) % Plt Count 90 L (150-450) th/mm3 MPV 9.1 (7.0-11.0) fL Prelim Diff (Auto) Slide review pending Neut % (Auto) 59.0 (16.0-70.0) % Lymph % (Auto) 21.2 (9.0-44.0) % [place] % (Auto) 11.5 H (0.0-8.0) % Eos % (Auto) 7.6 H (0.0-4.0) % Baso % (Auto) 0.7 (0.0-2.0) % Neut # (Auto) 2.4 (1.8-7.7) th/mm3 Lymph # (Auto) 0.9 L (1.0-4.8) th/mm3 [place] # (Auto) 0.5 (0.0-0.9) th/mm3 Eos # (Auto) 0.3 (0.0-0.4) th/mm3 Baso # (Auto) 0.0 (0.0-0.2) th/mm3 WBC Differential . Diff Scan Auto diff confirmed Differential Comment . Platelet Estimate Low L (Normal) Platelet Morphology Normal (Normal) PT 13.4 H (9.8-11.6) sec INR 1.3 Ratio APTT 32.2 H (24.3-30.1) sec Sodium 140 (136-145) meq/L Potassium 3.9 (3.5-5.1) meq/L Chloride 105 (98-107) meq/L Carbon Dioxide 28.2 (21.0-32.0) meq/L Anion Gap 7 (5-15) meq/L BUN 10 (7-18) mg/dL Creatinine 0.63 (0.60-1.30) mg/dL Estimated GFR Greater than 89 (>89) mL/min Random Glucose 80 (74-106) mg/dL Calcium 8.4 L (8.5-10.1) mg/dL Total Bilirubin 0.3 (0.2-1.0) mg/dL AST 27 (15-37) U/L ALT 22 (12-78) U/L Alkaline Phosphatase 101 (45-117) U/L Total Protein 6.7 (6.4-8.2) g/dL Albumin 2.7 L (3.4-5.0) g/dL Urine Color (Yellw/Straw) Urine Clarity (Clear) Urine pH (5.0-8.5) Ur Specific [place] (1.002-1.035) Urine Protein (Neg-Trace) mg/dL Urine Glucose (UA) (Negative) mg/dL Urine Ketones (Negative) mg/dL Urine Occult Blood (Negative) Urine Nitrate (Negative) Urine Bilirubin (Negative) Urine Urobilinogen (Less than 2) mg/dL Ur Leukocyte Esterase (Negative) Urine WBC (0-5) /hpf Micro UA Comment Urine Culture Comments 11/21/17 Range/Units 19:25 WBC (4.0-11.0) th/mm3 RBC (4.50-5.90) mil/mm3 Hgb (13.0-17.0) gm/dL Hct (39.0-51.0) % MCV (80.0-100.0) fL MCH (27.0-34.0) pg MCHC (32.0-36.0) % RDW (11.6-17.2) % Plt Count (150-450) th/mm3 MPV (7.0-11.0) fL Prelim Diff (Auto) Neut % (Auto) (16.0-70.0) % Lymph % (Auto) (9.0-44.0) % [place] % (Auto) (0.0-8.0) % Eos % (Auto) (0.0-4.0) % Baso % (Auto) (0.0-2.0) % Neut # (Auto) (1.8-7.7) th/mm3 Lymph # (Auto) (1.0-4.8) th/mm3 [place] # (Auto) (0.0-0.9) th/mm3 Eos # (Auto) (0.0-0.4) th/mm3 Baso # (Auto) (0.0-0.2) th/mm3 WBC Differential Diff Scan Differential Comment Platelet Estimate (Normal) Platelet Morphology (Normal) PT (9.8-11.6) sec INR Ratio APTT (24.3-30.1) sec Sodium (136-145) meq/L Potassium (3.5-5.1) meq/L Chloride (98-107) meq/L Carbon Dioxide (21.0-32.0) meq/L Anion Gap (5-15) meq/L BUN (7-18) mg/dL Creatinine (0.60-1.30) mg/dL Estimated GFR (>89) mL/min Random Glucose (74-106) mg/dL Calcium (8.5-10.1) mg/dL Total Bilirubin (0.2-1.0) mg/dL AST (15-37) U/L ALT (12-78) U/L Alkaline Phosphatase (45-117) U/L Total Protein (6.4-8.2) g/dL Albumin (3.4-5.0) g/dL Urine Color Yellow (Yellw/Straw) Urine Clarity Clear (Clear) Urine pH 7.0 (5.0-8.5) Ur Specific [place] 1.013 (1.002-1.035) Urine Protein Negative (Neg-Trace) mg/dL Urine Glucose (UA) Negative (Negative) mg/dL Urine Ketones Negative (Negative) mg/dL Urine Occult Blood Negative (Negative) Urine Nitrate Negative (Negative) Urine Bilirubin Negative (Negative) Urine Urobilinogen Less than 2 (Less than 2) mg/dL Ur Leukocyte Esterase Trace H (Negative) Urine WBC 2 (0-5) /hpf Micro UA Comment Culture not ind Urine Culture Comments Culture not ind Discharge Plan Physicians Team ED Provider: Jamie Ward ED Midlevel Provider: Ed Casillas Primary Care Provider: NON STAFF,PROVIDER Attending Provider: Britany Duron Rxs /Orders / Referrals /Forms Prescriptions: No Action furosemide 40 mg Tablet 40 mg PO DAILY RF: 0 gabapentin 600 mg Tablet 600 mg PO TID RF: 0 trazodone 50 mg Tablet 50 mg PO HS RF: 0 aspirin 325 mg Tablet 325 mg PO DAILY RF: 0 hydromorphone 2 mg Tablet 2 mg PO Q4H PRN (Reason: Pain) RF: 0 oxycodone-acetaminophen [Percocet] 10-325 mg Tablet 1 tab PO Q4H PRN (Reason: Pain) RF: 0 morphine 60 mg Tablet Extended Release 60 mg PO Q8H RF: 0 atorvastatin 40 mg Tablet 40 mg PO HS Qty: 90 RF: 3 trazodone 50 mg Tablet 50 mg PO DAILY RF: 0 pantoprazole [Protonix] 40 mg Tablet,Delayed Release (Dr/Ec) 40 mg PO DAILY RF: 0 Discharge Interventions Interventions: Vital Signs Last Done: 11/21/17 20:50 Status ED Status: Admitted Patient
[2017-11-21 18:33] LABS: Baso % (Auto) 0.7 % (0.0-2.0); Eos # (Auto) 0.3 th/mm3 (0.0-0.4); Eos % (Auto) 7.6 % (0.0-4.0); Hematocrit 29.6 % (39.0-51.0); Hemoglobin 10.1 gm/dL (13.0-17.0); Lymph # (Auto) 0.9 th/mm3 (1.0-4.8); Lymph % (Auto) 21.2 % (9.0-44.0); Mean Corpuscular HGB Conc 34.1 % (32.0-36.0); Mean Corpuscular Hemoglobin 31.7 pg (27.0-34.0); Mean Corpuscular Volume 92.8 fL (80.0-100.0); Mean Platelet Volume 9.1 fL (7.0-11.0); Mono # (Auto) 0.5 th/mm3 (0.0-0.9); Mono % (Auto) 11.5 % (0.0-8.0); Neut # (Auto) 2.4 th/mm3 (1.8-7.7); Platelet Count 90 th/mm3 (150-450); Red Blood Count 3.19 mil/mm3 (4.50-5.90); Red Cell Distribution Width 13.9 % (11.6-17.2)
[2017-11-21 19:00] LABS: Activated Partial Thrombo Time 32.2 sec (24.3-30.1); INR 1.3 Ratio; Platelet Morphology Normal (Normal); Prothrombin Time 13.4 sec (9.8-11.6)
[2017-11-21 19:07] LABS: Alanine Aminotransferase 22 U/L (12-78); Albumin 2.7 g/dL (3.4-5.0); Anion Gap 7 meq/L (5-15); Aspartate Aminotransferase 27 U/L (15-37); Blood Urea Nitrogen 10 mg/dL (7-18); Calcium 8.4 mg/dL (8.5-10.1); Carbon Dioxide 28.2 meq/L (21.0-32.0); Chloride 105 meq/L (98-107); Glomerular Filtration Rate Greater Than 89 mL/min (>89); Glucose,Random 80 mg/dL (74-106); Potassium 3.9 meq/L (3.5-5.1); Sodium 140 meq/L (136-145)
[2017-11-21 19:13] LABS: Alkaline Phosphatase 101 U/L (45-117); Total Protein 6.7 g/dL (6.4-8.2)
[2017-11-21] MEDS ORDERED: Morphine Inj 4 MG/ML Vial IV.PUSH ONE (19:32)
--- NOTE | 2017-11-21 20:29 | P.PNVS ---
Subjective Subjective/Hospital Course: 51-year-old male who underwent about a month ago axillobifemoral bypass by Dr. Hendrickson and was successfully discharged with excellent blood flow to the both legs, developed swelling in the right groin about 5 days ago and was seen today by his wound care doctor who aspirated purulent material from the right groin. Indeed there is a moderate swelling of the right groin with some redness and tenderness This is consistent with infection of the right groin. Patient unfortunately has axillobifemoral bypass and this is the right leg of the graft so chances of salvaging this are small but every effort should be made to do so because contrary patient will lose the flow to the right leg. 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 Patient will be taken to the operating room for I&D of the right groin and wound VAC placement This will need to be washed out in the future and there is a small chance that this may be salvaged but there is significant chance that this part of the graft will need to be resected Patient will be placed on antibiotics IV fluids admitted to medicine infectious disease will be consulted and then patient will require drainage of the same as above stated. Objective Vital Signs / I&O: Vital Signs 11/21/17 16:01 11/21/17 19:22 Temperature 97.9 F Pulse Rate 104 H 104 H Respiratory Rate 17 16 Blood Pressure 97/66 L 124/82 Pulse Oximetry 100 98 Intake & Output 11/21/17 11/21/17 11/22/17 06:59 18:59 06:59 Weight 72.575 kg Laboratory Results - last 24 hr 11/21/17 11/21/17 11/21/17 18:20 18:20 18:20 WBC 4.0 RBC 3.19 L Hgb 10.1 L Hct 29.6 L MCV 92.8 MCH 31.7 MCHC 34.1 RDW 13.9 Plt Count 90 L MPV 9.1 Prelim Diff (Auto) Slide review pending Neut % (Auto) 59.0 Lymph % (Auto) 21.2 [place] % (Auto) 11.5 H Eos % (Auto) 7.6 H Baso % (Auto) 0.7 Neut # (Auto) 2.4 Lymph # (Auto) 0.[address] [place] # (Auto) 0.5 Eos # (Auto) 0.3 Baso # (Auto) 0.0 WBC Differential . Diff Scan Auto diff confirmed Differential Comment . Platelet Estimate Low L Platelet Morphology Normal PT 13.4 H INR 1.3 APTT 32.2 H Sodium 140 Potassium 3.9 Chloride 105 Carbon Dioxide 28.2 Anion Gap 7 BUN 10 Creatinine 0.63 Estimated GFR Greater than 89 Random Glucose 80 Calcium 8.4 L Total Bilirubin 0.3 AST 27 ALT 22 Alkaline Phosphatase 101 Total Protein 6.7 Albumin 2.7 L
[2017-11-21 20:32] LABS: Bilirubin,Urine Negative (Negative); Clarity,Urine Clear (Clear); Color,Urine Yellow (Yellw/Straw); Glucose,Urine (UA) Negative (Negative); Leukocyte Esterase,Urine Trace (Negative); Nitrite,Urine Negative (Negative); Specific Gravity,Urine 1.013 (1.002-1.035)
--- NOTE | 2017-11-21 20:54 | MB ---
cc: Yessy Moeller MD, Slobodan MD DATE: 11/21/2017 REASON FOR CONSULTATION: Infection of the right groin, status post axillofemoral bypass. HISTORY OF PRESENT ILLNESS: This 51-year-old male with a history of recurrent non-small cell carcinoma of the lung underwent about a month ago axillobifemoral bypass by Dr. Hendrickson for severe peripheral vascular disease and inflow occlusion. The patient did well, was discharged with good pulses and about 5 days ago noticed swelling of the right groin. The graft goes from the left subclavian artery down. The patient then presented to his wound care physician, who aspirated this and found purulent material. The patient now presents to the emergency room. Question arises about the implications of this. PAST MEDICAL HISTORY: Non-small cell carcinoma of the lung with recurrence, initially diagnosed in 06/2016. The patient underwent chemoradiation and now it comes back. SOCIAL HISTORY: The patient is a heavy smoker most of his adult life, but stopped smoking apparently since the recurrence of the cancer. PHYSICAL EXAMINATION: GENERAL: Reveals 51-year-old male, thin HEENT: Normocephalic. No trauma to the head. Pupils are equal, reactive. Extraocular muscles intact. NECK: Supple. Bilateral carotid pulses. No bruits. CHEST: Bilateral breath sounds, decreased over both lung mcdowell consistent with advanced chronic obstructive pulmonary disease. HEART: Regular rhythm. Right [id number] in position. The patient has a well-healed incision in the left subclavian area where the axillofemoral graft starts coming down to the groin and then bifurcating in both groins. The left side appears to be fine. On the right side, the patient has moderate swelling and some rubor consistent with infection. Distal perfusion is intact. NEUROLOGIC: The patient is grossly intact. IMPRESSION: A 51-year-old male with infection of aortobifemoral bypass in the right groin. The patient will be taken to the operating room for drainage of the same and washout and wound VAC placement. Unfortunately, due to the fact that this is an artificial graft, there is a very high chance that this portion of the graft will need to be sacrificed. However, every effort should be made to perhaps maintain the graft, clean it out and salvage it. It should be also noted that the patient is immunosuppressed due to his non-small cell carcinoma of the lung as well as therapy related to the same, so infection of this nature is not quite unexpected. Nonetheless, every effort should be made to salvage this graft but chances of that are small. The patient will be going to the operating room for incision and decision of the same. MD ELVIA Hyatt/ , 08:33 PM , 08:52 PM
[2017-11-21] MEDS ORDERED: Acetaminophen 325 MG Tablet PO PRN (21:01)
--- NOTE | 2017-11-21 21:30 | P.HP ---
History of Present Illness Service: [facility] Primary Care Physician: PROVIDER NON STAFF History of Present Illness: 51-year-old male with a past medical history significant for recurrent non- small cell lung cancer and celiac disease presents to the emergency department for the evaluation of a right groin wound. The patient is one-month postop from a axillobifemoral bypass done by Dr. Hendrickson. The patient was sent by his wound doctor, Dr. Rubio, after having purulent fluid removed from an abscess of his right groin earlier today. The patient reports that 5 days ago he started having some swelling and pain in the right groin. He denies any fever/ chills. Inpatient Certification: I certify that the inpatient services were ordered in accordance with Medicare regulations governing the order. This includes certification that hospital inpatient services are reasonable and necessary and in the case of services not specified as inpatient-only under 42 CFR 419.22(n), that they are appropriately provided as inpatient services in accordance to with the 2-midnight benchmark under 43 CFR 412.3(e) Estimated Total Length of Stay (Days): 2 Plans for Post Hospital Care: Home Review of Systems Denies fever or chills Denies blurry vision, otorrhea, rhinorrhea Denies sore throat and cough No chest pain, palpitations No shortness of breath or wheezing No abdominal pain Denies constipation/diarrhea/nausea/vomiting Denies muscle pain Denies focal weakness No rashes PMFSH - History History Provided By: Patient, Significant Other - Medical History Medical History: Medical History (Last Reviewed 11/21/17 @ 18:47 by Danielle Bingham) CD (celiac disease) Lung cancer - Surgical History Surgical History: Surgical History (Last Reviewed 11/21/17 @ 18:47 by Danielle Bingham) H/O neck surgery Previous back surgery S/P femoral-femoral bypass surgery - Family History Family History: Family History (Last Updated 11/21/17 @ 21:24 by Britany Duron MD) Other No family history of cardiac disease - Tobacco History Second Hand Smoke Exposure: No Tobacco Use In Past 30 Days: No Smoking Status: Former smoker Tobacco Type: Cigarettes - Alcohol History How Often Do You Have a Drink Containing Alcohol: Never - Substance Use History Substance History: No History of Abuse - Travel History Recent Travel in the [place] Within the Last 8 Weeks: No Recent Travel Out of the Country Within the Last 8 Weeks: No - Immunization History Tetanus Immunization: Unsure Hx Influenza Vaccine This Season: Yes Medications and Allergies Active Medications: Active Medications Acetaminophen (Tylenol) 650 mg PO Q4H PRN PRN Reason: Temp > 100.4 Atorvastatin Calcium (Lipitor) 40 mg PO HS [facility] Furosemide (Lasix) 40 mg PO DAILY [facility] Hydromorphone HCl (Dilaudid) 2 mg PO Q4H PRN Sodium Chloride (Ns Inj) 1,000 mls @ 100 mls/hr IV.CONT .Q10H [facility] Pharmacy Profile Note (Vancomycin Consult Pharmacy) 0 mls @ 0 mls/hr OTHER UNSCH [facility] Vancomycin HCl 1,000 mg/ (Sodium Chloride) 250 mls @ 250 mls/hr IV.SIG ONCE ONE Stop: 11/21/17 22:05 Piperacillin/Tazobactam/Dextrose (Zosyn 3.375 Gm Premix) 50 mls @ 100 mls/hr IV.SIG Q6H [facility] Morphine Sulfate (Oramorph Sr) 60 mg PO Q8H [facility] Non-Formulary Medication (Gabapentin [Gabapentin]) 600 mg PO TID [facility] Ondansetron HCl (Zofran Inj) 4 mg IV.PUSH Q6H PRN PRN Reason: NAUSEA OR VOMITING Oxycodone/Acetaminophen (Percocet 10/325 Mg) 1 tab PO Q4H PRN PRN Reason: Pain Pantoprazole Sodium (Protonix) 40 mg PO DAILY [facility] Trazodone HCl (Desyrel) 50 mg PO HS [facility] Allergies Allergy/AdvReac Type Severity Reaction Status Date / Time cephalexin [From Keflex] Allergy Anaphylaxis Verified 11/21/17 16:01 sulfamethoxazole Allergy Anaphylaxis Verified 11/21/17 16:01 [From Bactrim] trimethoprim [From Bactrim] Allergy Anaphylaxis Verified 11/21/17 16:01 Home Medications Medication Instructions Recorded Confirmed Type aspirin 325 mg PO DAILY 10/28/17 11/21/17 History furosemide 40 mg PO DAILY 10/28/17 11/21/17 History gabapentin 600 mg PO TID 10/28/17 11/21/17 History hydromorphone 2 mg PO Q4H PRN 10/28/17 11/21/17 History morphine 60 mg PO Q8H 10/28/17 11/21/17 History oxycodone-acetaminophen [Percocet] 1 tab PO Q4H PRN 10/28/17 11/21/17 History trazodone 50 mg PO HS 10/28/17 11/21/17 History pantoprazole [Protonix] 40 mg PO DAILY 11/21/17 11/21/17 History trazodone 50 mg PO DAILY 11/21/17 11/21/17 History Exam Vital signs: Vital Signs 11/21/17 16:01 11/21/17 19:22 11/21/17 20:50 Temperature 97.9 F Pulse Rate 104 H 104 H 71 Respiratory Rate 17 16 16 Blood Pressure 97/66 L 124/82 95/67 L Pulse Oximetry 100 98 98 Intake & Output 11/21/17 11/21/17 11/22/17 06:59 18:59 06:59 Weight 72.575 kg Narrative: Gen.: No acute distress Head: Normocephalic. Atraumatic. EENT: Pupils equal round and reactive to light. Nose without drainage. Airway intact. Throat without injection. Cardiovascular: Regular rate and rhythm. No murmurs, rubs or gallops. Respiratory: Lungs clear to auscultation bilaterally. No wheezes or rhonchi. Abdomen: Soft, nontender, nondistended. No peritoneal signs. Musculoskeletal: No gross deformities. No edema. Skin: Right groin with erythema and induration, tender to palpation. No drainage at this time. Neuro: Sensory and motor grossly intact. Cranial nerves II through XII grossly intact. Psych: Appropriate mood and affect Results - Labs CBC & Chem 7: 11/21/17 18:20 11/21/17 18:20 Labs: Laboratory Results - last 24 hr 11/21/17 11/21/17 11/21/17 18:20 18:20 18:20 WBC 4.0 RBC 3.19 L Hgb 10.1 L Hct 29.6 L MCV 92.8 MCH 31.7 MCHC 34.1 RDW 13.9 Plt Count 90 L MPV 9.1 Prelim Diff (Auto) Slide review pending Neut % (Auto) 59.0 Lymph % (Auto) 21.2 [place] % (Auto) 11.5 H Eos % (Auto) 7.6 H Baso % (Auto) 0.7 Neut # (Auto) 2.4 Lymph # (Auto) 0.9 L [place] # (Auto) 0.5 Eos # (Auto) 0.3 Baso # (Auto) 0.0 WBC Differential . Diff Scan Auto diff confirmed Differential Comment . Platelet Estimate Low L Platelet Morphology Normal PT 13.4 H INR 1.3 APTT 32.2 H Sodium 140 Potassium 3.9 Chloride 105 Carbon Dioxide 28.2 Anion Gap 7 BUN 10 Creatinine 0.63 Estimated GFR Greater than 89 Random Glucose 80 Calcium 8.4 L Total Bilirubin 0.3 AST 27 ALT 22 Alkaline Phosphatase 101 Total Protein 6.7 Albumin 2.7 L Urine Color Urine Clarity Urine pH Ur Specific [place] Urine Protein Urine Glucose (UA) Urine Ketones Urine Occult Blood Urine Nitrate Urine Bilirubin Urine Urobilinogen Ur Leukocyte Esterase Urine WBC Micro UA Comment Urine Culture Comments 11/21/17 19:25 WBC RBC Hgb Hct MCV MCH MCHC RDW Plt Count MPV Prelim Diff (Auto) Neut % (Auto) Lymph % (Auto) [place] % (Auto) Eos % (Auto) Baso % (Auto) Neut # (Auto) Lymph # (Auto) [place] # (Auto) Eos # (Auto) Baso # (Auto) WBC Differential Diff Scan Differential Comment Platelet Estimate Platelet Morphology PT INR APTT Sodium Potassium Chloride Carbon Dioxide Anion Gap BUN Creatinine Estimated GFR Random Glucose Calcium Total Bilirubin AST ALT Alkaline Phosphatase Total Protein Albumin Urine Color Yellow Urine Clarity Clear Urine pH 7.0 Ur Specific [place] 1.013 Urine Protein Negative Urine Glucose (UA) Negative Urine Ketones Negative Urine Occult Blood Negative Urine Nitrate Negative Urine Bilirubin Negative Urine Urobilinogen Less than 2 Ur Leukocyte Esterase Trace H Urine WBC 2 Micro UA Comment Culture not ind Urine Culture Comments Culture not ind Caprini VTE Risk Assessment Caprini VTE Risk Assessment: Moderate/High Risk (score >= 2) Caprini Risk Assessment Model: Point Value = 1 Point Value = 2 Point Value = 3 Point Value = 5 Age 41-60 Minor surgery BMI > 25 kg/m2 Swollen legs Varicose veins or History of unexplained or recurrent spontaneous Oral contraceptives or hormone replacement Sepsis (< 1 month) Serious lung disease, including pneumonia (< 1 month) Abnormal pulmonary function Acute myocardial infarction Congestive heart failure (< 1 month) History of inflammatory bowel disease Medical patient at bed rest Age 61-74 Arthroscopic surgery Major open surgery (> 45 min) Laparoscopic surgery (> 45 min) Malignancy Confined to bed (> 72 hours) Immobilizing plaster cast Central venous access Age >= 75 History of VTE Family history of VTE Factor V Leiden Prothrombin [id number] Lupus anticoagulant Anticardiolipin antibodies Elevated serum homocysteine Heparin-induced thrombocytopenia Other congenital or acquired thrombophilia Stroke (< 1 month) Elective arthroplasty Hip, pelvis, or leg fracture Acute spinal cord injury (< 1 month) Prophylaxis Regimen: Total Risk Factor Score Risk Level Prophylaxis Regimen 0-1 Low Early ambulation 2 Moderate Order ONE of the following: *Sequential Compression Device (SCD) *Heparin 5000 units SQ BID 3-4 Higher Order ONE of the following medications: *Heparin 5000 units SQ TID *Enoxaparin/Lovenox 40 mg SQ daily (WT < 150 kg, CrCl > 30 mL/min) *Enoxaparin/Lovenox 30 mg SQ daily (WT < 150 kg, CrCl > 10-29 mL/min) *Enoxaparin/Lovenox 30 mg SQ BID (WT < 150 kg, CrCl > 30 mL/min) AND/OR *Sequential Compression Device (SCD) 5 or more Highest Order ONE of the following medications: *Heparin 5000 units SQ TID (Preferred with Epidurals) *Enoxaparin/Lovenox 40 mg SQ daily (WT < 150 kg, CrCl > 30 mL/min) *Enoxaparin/Lovenox 30 mg SQ daily (WT < 150 kg, CrCl > 10-29 mL/min) *Enoxaparin/Lovenox 30 mg SQ BID (WT < 150 kg, CrCl > 30 mL/min) AND *Sequential Compression Device (SCD) Assessment and Plan - Plan Assessment/plan: 1. Right groin/graft infection Vascular surgery consulted, appreciate recommendations Per vascular surgery, patient will be taken to the operating room for an I&D of the right groin and wound VAC placement Vancomycin and Zosyn Blood cultures pending Infectious disease consulted, appreciate recommendations 2. Non-small cell lung cancer (recurrent) Patient states he has not undergone chemotherapy since his recurrence Recurrence occurred after 4 months of permission His oncologist is at [facility] Follow-up as outpatient once infection under control Continue home pain medication regimen of morphine, Percocet and Dilaudid FEN N.p.o. after midnight Electrolytes: Monitor and replete as needed NS at 100 cc/hour Holding pharmacologic anticoagulation secondary to operative procedure tomorrow
[2017-11-21] MEDS ORDERED: Vancomycin Consult Pharmacy 1 EACH OTHER SCH (22:00)
[2017-11-21] MEDS: Sod Chloride 0.9% Inj 1,000 ML IV.CONT SCH (22:01)
[2017-11-21] MEDS: Piperacil/Tazo 3.375 GM Premix 50 ML IV.SIG SCH (22:01)
[2017-11-21] MEDS: oxyCODONE/Acetaminophen 10/325 Tablet PO PRN (22:01)
[2017-11-21] MEDS ORDERED: Vancomycin Inj 1,000 MG in Sodium Chlor 0.9% Inj 250 ML IV.SIG ONE (23:00)
[2017-11-21] MEDS: traZODone 50 MG Tablet PO SCH (23:40)
[2017-11-22] MEDS: Morphine Sulfate 60 MG SR Tablet PO SCH ×2 (02:00→06:38)
--- NOTE | 2017-11-22 05:59 | P.PN ---
Subjective Interval history: F/u infected right inguinal wound. Patient complaining of groin pain going to OR today seen with discussed with nursing Physical Exam Vital signs: Vital Signs 11/21/17 16:01 11/21/17 19:22 11/21/17 20:50 Temperature 97.9 F Pulse Rate 104 H 104 H 71 Respiratory Rate 17 16 16 Blood Pressure 97/66 L 124/82 95/67 L Pulse Oximetry 100 98 98 11/21/17 23:03 11/22/17 03:48 Temperature 98.5 F 98.3 F Pulse Rate 100 H 82 Respiratory Rate 17 16 Blood Pressure 99/73 L 96/55 L Pulse Oximetry 96 99 Intake & Output 11/21/17 11/21/17 11/22/17 06:59 18:59 06:59 Weight 72.575 kg Narrative: Gen.: No acute distress Cardiovascular: Regular rate and rhythm. No murmurs, rubs or gallops. Respiratory: Lungs clear to auscultation bilaterally. No wheezes or rhonchi. Abdomen: Soft, nontender, nondistended. No peritoneal signs. Musculoskeletal: No gross deformities. No edema. Skin: Right groin with erythema and induration, tender to palpation. No drainage at this time. Neuro: Sensory and motor grossly intact. Cranial nerves II through XII grossly intact. Results - Labs CBC & Chem 7: 11/22/17 07:55 11/22/17 07:55 Laboratory Results - last 24 hr 11/21/17 11/21/17 11/21/17 18:20 18:20 18:20 WBC 4.0 RBC 3.19 L Hgb 10.1 L Hct 29.6 L MCV 92.8 MCH 31.7 MCHC 34.1 RDW 13.9 Plt Count 90 L MPV 9.1 Prelim Diff (Auto) Slide review pending Neut % (Auto) 59.0 Lymph % (Auto) 21.2 [place] % (Auto) 11.5 H Eos % (Auto) 7.6 H Baso % (Auto) 0.7 Neut # (Auto) 2.4 Lymph # (Auto) 0.9 L [place] # (Auto) 0.5 Eos # (Auto) 0.3 Baso # (Auto) 0.0 WBC Differential . Diff Scan Auto diff confirmed Differential Comment . Platelet Estimate Low L Platelet Morphology Normal PT 13.4 H INR 1.3 APTT 32.2 H Sodium 140 Potassium 3.9 Chloride 105 Carbon Dioxide 28.2 Anion Gap 7 BUN 10 Creatinine 0.63 Estimated GFR Greater than 89 Random Glucose 80 Calcium 8.4 L Total Bilirubin 0.3 AST 27 ALT 22 Alkaline Phosphatase 101 Total Protein 6.7 Albumin 2.7 L Urine Color Urine Clarity Urine pH Ur Specific [place] Urine Protein Urine Glucose (UA) Urine Ketones Urine Occult Blood Urine Nitrate Urine Bilirubin Urine Urobilinogen Ur Leukocyte Esterase Urine WBC Micro UA Comment Urine Culture Comments Blood Type Blood Type Recheck Antibody Screen 11/21/17 11/21/17 19:25 20:40 WBC RBC Hgb Hct MCV MCH MCHC RDW Plt Count MPV Prelim Diff (Auto) Neut % (Auto) Lymph % (Auto) [place] % (Auto) Eos % (Auto) Baso % (Auto) Neut # (Auto) Lymph # (Auto) [place] # (Auto) Eos # (Auto) Baso # (Auto) WBC Differential Diff Scan Differential Comment Platelet Estimate Platelet Morphology PT INR APTT Sodium Potassium Chloride Carbon Dioxide Anion Gap BUN Creatinine Estimated GFR Random Glucose Calcium Total Bilirubin AST ALT Alkaline Phosphatase Total Protein Albumin Urine Color Yellow Urine Clarity Clear Urine pH 7.0 Ur Specific [place] 1.013 Urine Protein Negative Urine Glucose (UA) Negative Urine Ketones Negative Urine Occult Blood Negative Urine Nitrate Negative Urine Bilirubin Negative Urine Urobilinogen Less than 2 Ur Leukocyte Esterase Trace H Urine WBC 2 Micro UA Comment Culture not ind Urine Culture Comments Culture not ind Blood Type O Negative Blood Type Recheck Not needed Antibody Screen Negative Assessment and Plan - Assessment (1) PVD (peripheral vascular disease) Code(s): I73.9 - Peripheral vascular disease, unspecified Status: Acute (2) Abscess of groin, right Code(s): L02.214 - Cutaneous abscess of groin Status: Acute - Plan 1. Right groin abscess/ suspect graft infection Vascular surgery consulted, appreciate recommendations Per vascular surgery, patient will be taken to the operating room for an I&D of the right groin and wound VAC placement Vancomycin and Zosyn Blood cultures pending Infectious disease consulted, appreciate recommendations pain mgt with home meds RTC MS, prn lortab and Dilaudid counselled re narcs 2. Non-small cell lung cancer (recurrent) Patient states he has not undergone chemotherapy since his recurrence Recurrence occurred after 4 months of permission His oncologist is at [facility] Follow-up as outpatient once infection under control Continue home pain medication regimen of morphine, Percocet and Dilaudid FEN N.p.o. after midnight Electrolytes: Monitor and replete as needed NS at 100 cc/hour Holding pharmacologic anticoagulation secondary to operative procedure SCD
[2017-11-22] MEDS: Piperacil/Tazo 3.375 GM Premix 50 ML IV.SIG SCH ×4 (06:31→22:01)
[2017-11-22] MEDS: Furosemide 40 MG Tablet PO SCH (08:07)
[2017-11-22] MEDS: Gabapentin 300 MG Capsule PO SCH ×3 (08:07→17:22)
[2017-11-22 08:13] LABS: Baso % (Auto) 1.1 % (0.0-2.0); Eos # (Auto) 0.3 th/mm3 (0.0-0.4); Eos % (Auto) 8.7 % (0.0-4.0); Lymph # (Auto) 0.8 th/mm3 (1.0-4.8); Lymph % (Auto) 20.6 % (9.0-44.0); Mean Corpuscular HGB Conc 34.5 % (32.0-36.0); Mean Corpuscular Hemoglobin 31.9 pg (27.0-34.0); Mean Corpuscular Volume 92.5 fL (80.0-100.0); Mean Platelet Volume 9.3 fL (7.0-11.0); Mono # (Auto) 0.4 th/mm3 (0.0-0.9); Mono % (Auto) 10.5 % (0.0-8.0); Neut # (Auto) 2.2 th/mm3 (1.8-7.7); Neut % (Auto) 59.1 % (16.0-70.0); Platelet Count 100 th/mm3 (150-450); Red Blood Count 3.46 mil/mm3 (4.50-5.90); Red Cell Distribution Width 13.7 % (11.6-17.2); White Blood Count 3.7 th/mm3 (4.0-11.0)
[2017-11-22] MEDS: Sod Chloride 0.9% Inj 1,000 ML IV.CONT SCH ×2 (08:26→17:24)
[2017-11-22 08:33] LABS: Anion Gap 7 meq/L (5-15); Blood Urea Nitrogen 9 mg/dL (7-18); Calcium 8.3 mg/dL (8.5-10.1); Carbon Dioxide 27.1 meq/L (21.0-32.0); Chloride 107 meq/L (98-107); Glomerular Filtration Rate Greater Than 89 mL/min (>89); Glucose,Random 104 mg/dL (74-106); Potassium 3.8 meq/L (3.5-5.1); Sodium 141 meq/L (136-145)
[2017-11-22] MEDS ORDERED: Metoprolol Tartrate 25 MG Tablet PO SCH (09:45)
[2017-11-22] MEDS ORDERED: Chlorhexidine Gluconate 2% 1 Pack (2 Cloths) TOPICAL SCH (09:45)
[2017-11-22] MEDS ORDERED: Sodium Chlor 0.9% Inj 500 ML IV.SIG SCH (10:00)
[2017-11-22] MEDS ORDERED: *morphine SULFATE 10 MG/ML PERIprocedure ONLY ONE ×3 (11:14→12:22)
[2017-11-22] MEDS ORDERED: fentaNYL Citrate Inj 100 MCG/2 ML Ampul ONE (11:16)
[2017-11-22] MEDS ORDERED: *Meperidine Inj 25 MG/ML Vial PERIprocedural Use ONLY ONE (11:30)
[2017-11-22] MEDS: Vancomycin Inj 1,000 MG in Sodium Chlor 0.9% Inj 250 ML IV.SIG SCH ×2 (11:54→23:33)
[2017-11-22] MEDS: oxyCODONE/Acetaminophen 10/325 Tablet PO PRN ×3 (13:50→23:32)
[2017-11-22] MEDS: Morphine Sulfate 30 MG SR Tablet PO SCH ×2 (14:13→21:56)
[2017-11-22] MEDS: traZODone 50 MG Tablet PO SCH (20:34)
[2017-11-22] MEDS: Senna/Docusate Sodium 8.6/50 MG Tablet PO SCH (20:35)
[2017-11-22] MEDS: Collagenase Oint 30 GM Tube TOPICAL SCH (23:00)
--- NOTE | 2017-11-22 23:05 | MP ---
cc: Yessy Moeller MD DATE OF OPERATION: 11/22/2017 PREOPERATIVE DIAGNOSES: Status post axillobifemoral bypass and hematoma versus infection of the right groin. POSTOPERATIVE DIAGNOSES: Status post axillobifemoral bypass and hematoma versus infection of the right groin. OPERATIVE PROCEDURE: Right groin exploration and drainage and wound VAC placement. SURGEON: Yessy Moeller MD ANESTHESIA: General. ESTIMATED BLOOD LOSS: 30 mL INDICATIONS FOR PROCEDURE: This 51-year-old male underwent successful axillobifemoral bypass by Dr. Hendrickson about a month ago. The patient now, for 5 days, has had swelling in his right groin, and indeed this is red, swollen, and painful. The patient, therefore, taken to the operating room. The patient was prepped and draped in usual fashion. The right groin incision was made, deepened down, and about 80 mL of turbid fluid is released. This was cultured for aerobes and anaerobes. The area irrigated with saline, and then devitalized tissue in the wound was debrided sharply until nicely bleeding tissue was encountered. Once more, area was irrigated with saline. There was a layer of tissue between the graft and the collection, so I believe this may be a salvageable graft. In addition, some tissue was sent for cultures. The area irrigated once more, and then small wound VAC placed. The patient was taken out of the operating room in stable condition. At the end of procedure, the patient has good distal pulses and functioning graft. MD ELVIA Hyatt/uma/dari , 04:37 PM , 04:43 PM
[2017-11-23] MEDS: Sod Chloride 0.9% Inj 1,000 ML IV.CONT SCH ×4 (03:15→23:29)
[2017-11-23] MEDS: Piperacil/Tazo 3.375 GM Premix 50 ML IV.SIG SCH ×4 (03:30→21:25)
[2017-11-23] MEDS: oxyCODONE/Acetaminophen 10/325 Tablet PO PRN ×3 (03:30→12:30)
[2017-11-23] MEDS: Morphine Sulfate 30 MG SR Tablet PO SCH ×3 (06:08→21:23)
[2017-11-23] MEDS: Collagenase Oint 30 GM Tube TOPICAL SCH (08:34)
[2017-11-23] MEDS: Senna/Docusate Sodium 8.6/50 MG Tablet PO SCH ×2 (08:35→21:24)
[2017-11-23] MEDS: Gabapentin 300 MG Capsule PO SCH ×3 (08:35→17:56)
[2017-11-23] MEDS: Furosemide 40 MG Tablet PO SCH (08:35)
[2017-11-23] MEDS ORDERED: Pharmacy Ordered Lab Info OTHER ONE (11:45)
[2017-11-23] MEDS: Vancomycin Inj 1,000 MG in Sodium Chlor 0.9% Inj 250 ML IV.SIG SCH (12:25)
--- NOTE | 2017-11-23 15:54 | P.PNIM ---
Subjective Interval history: Patient reports he is feeling okay. Reports his pain is not controlled. He is requesting for Percocet to be scheduled. He states he takes it scheduled at home every 6 hours. Physical Exam Vital signs: Vital Signs 11/22/17 16:00 11/22/17 20:00 11/22/17 20:31 Temperature 97.5 F L 98.9 F Pulse Rate 84 103 H Respiratory Rate 17 20 20 Blood Pressure 99/63 L 117/75 Pulse Oximetry 95 97 11/22/17 21:34 11/22/17 23:47 11/23/17 00:00 Temperature 97.7 F Pulse Rate 94 H 96 H Respiratory Rate 20 20 Blood Pressure 98/59 L Pulse Oximetry 97 11/23/17 00:02 11/23/17 01:04 11/23/17 04:00 Temperature 97.7 F Pulse Rate 93 H Respiratory Rate 20 20 18 Blood Pressure 94/53 L Pulse Oximetry 96 11/23/17 08:00 11/23/17 12:00 Temperature 97.8 F 97.8 F Pulse Rate 94 H 94 H Respiratory Rate 18 18 Blood Pressure 112/70 112/70 Pulse Oximetry 96 96 Intake & Output 11/22/17 11/23/17 11/23/17 18:59 06:59 18:59 Intake Total 3360 / 3360 590 / 590 1050 / 1050 Output Total 1210 / 1210 800 / 800 250 / 250 Balance 2150 / 2150 -210 / -210 800 / 800 Intake: IV 2400 / 2400 350 / 350 1050 / 1050 NS Inj 1,000 ML @ 100 mls/hr IV 2000 / 2000 1000 / 1000 .CONT .Q10H [facility] Rx#:[id number] Zosyn 3.375 GM Premix 50 ML @ 150 / 150 100 / 100 50 / 50 100 mls/hr IV.SIG Q6H [facility] Rx#: [id number] Vancomycin Inj 1,000 MG In NS 250 / 250 250 / 250 Inj 250 ML @ 250 mls/hr IV.SIG Q12H [facility] Rx#:[id number] Oral 360 / 360 240 / 240 Anesthesia Amount 600 / 600 Output: Urine 1100 / 1100 750 / 750 250 / 250 Estimated Blood Loss 10 / 10 Wound Drainage 100 / 100 Right Groin 100 / 100 Wound Vac Amount 50 / 50 Left Groin 50 / 50 Other: Mode Setting Left Groin Continuous Right Anterior Groin Continuous # Voids 7 Date of Last Bowel Movement 11/22/17 # Bowel Movements 1 Narrative: Gen.: No acute distress Cardiovascular: Regular rate and rhythm. No murmurs, rubs or gallops. Respiratory: Lungs clear to auscultation bilaterally. No wheezes or rhonchi. Abdomen: Soft, nontender, nondistended. No peritoneal signs. Musculoskeletal: No gross deformities. No edema. Skin: Right groin has a wound VAC in place. Neuro: Sensory and motor grossly intact. Cranial nerves II through XII grossly intact. Results - Labs CBC & Chem 7: 11/22/17 07:55 11/22/17 07:55 Laboratory Results - last 24 hr 11/23/17 11:45 Vancomycin Trough 11.1 H Microbiology 11/22/17 10:45 Tissue - Groin Gram Stain - Final 11/22/17 10:45 Tissue - Groin Wound Culture - Preliminary Staphylococcus species 11/22/17 10:45 Abscess - Groin Gram Stain - Final 11/22/17 10:45 Abscess - Groin Wound Culture - Preliminary S. aureus MRSA 11/22/17 10:45 Tissue - Groin Acid Fast Bacilli Smear - Final No acid fast bacilli seen 11/22/17 10:45 Abscess - Groin Acid Fast Bacilli Smear - Final No acid fast bacilli seen 11/21/17 21:42 Blood - Peripheral Aerobic Blood Culture - Preliminary No growth in 2 days 11/21/17 21:42 Blood - Peripheral Anaerobic Blood Culture - Preliminary No growth in 2 days 11/21/17 21:35 Blood - Peripheral Aerobic Blood Culture - Preliminary No growth in 2 days 11/21/17 21:35 Blood - Peripheral Anaerobic Blood Culture - Preliminary No growth in 2 days 11/22/17 10:45 Tissue - Groin Fungal Smear - Final No fungal elements seen 11/22/17 10:45 Abscess - Groin Fungal Smear - Final No fungal elements seen Assessment and Plan - Assessment (1) PVD (peripheral vascular disease) Code(s): I73.9 - Peripheral vascular disease, unspecified Status: Acute (2) Abscess of groin, right Code(s): L02.214 - Cutaneous abscess of groin Status: Acute - Plan 1. Right groin abscess/ suspect graft infection Vascular surgery following. Patient is status post I&D of the right groin and wound VAC placement Continue vancomycin and Zosyn Blood cultures pending Infectious disease consulted, appreciate recommendations pain mgt with home meds RTC MS, scheduled Percocet. As needed Dilaudid. He is a cancer patient and states he has been using narcotics chronically. 2. Non-small cell lung cancer (recurrent) Patient states he has not undergone chemotherapy since his recurrence Recurrence occurred after 4 months of permission His oncologist is at [facility] Follow-up as outpatient once infection under control Continue home pain medication regimen of morphine, Percocet and Dilaudid
[2017-11-23] MEDS: oxyCODONE/Acetaminophen 10/325 Tablet PO SCH ×2 (16:11→21:26)
--- NOTE | 2017-11-23 17:13 | P.PNVS ---
Subjective Subjective/Hospital Course: 51-year-old male who underwent about a month ago axillobifemoral bypass by Dr. Hendrickson and was successfully discharged with excellent blood flow to the both legs, developed swelling in the right groin about 5 days ago and was seen today by his wound care doctor who aspirated purulent material from the right groin. Indeed there is a moderate swelling of the right groin with some redness and tenderness This is consistent with infection of the right groin. Patient unfortunately has axillobifemoral bypass and this is the right leg of the graft so chances of salvaging this are small but every effort should be made to do so because contrary patient will lose the flow to the right leg. 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 Patient will be taken to the operating room for I&D of the right groin and wound VAC placement This will need to be washed out in the future and there is a small chance that this may be salvaged but there is significant chance that this part of the graft will need to be resected Patient will be placed on antibiotics IV fluids admitted to medicine infectious disease will be consulted and then patient will require drainage of the same as above stated. 11/23/2017 Patient is status post drainage of the right groin area Wound VAC in place and drainage is serosanguineous Area around it is nice and clean and noninflamed Excellent distal pulses and graft is patent and well-functioning. Cultures are pending Will have wound VAC change every Monday and Monday Depending on the cultures and antibiotic selection may change In the long run this may be a salvageable graft Objective Vital Signs / I&O: Vital Signs 11/22/17 20:00 11/22/17 20:31 11/22/17 21:34 Temperature 98.9 F Pulse Rate 103 H Respiratory Rate 20 20 20 Blood Pressure 117/75 Pulse Oximetry 97 11/22/17 23:47 11/23/17 00:00 11/23/17 00:02 Temperature 97.7 F Pulse Rate 94 H 96 H Respiratory Rate 20 20 Blood Pressure 98/59 L Pulse Oximetry 97 11/23/17 01:04 11/23/17 04:00 11/23/17 08:00 Temperature 97.7 F 97.8 F Pulse Rate 93 H 94 H Respiratory Rate 20 18 18 Blood Pressure 94/53 L 112/70 Pulse Oximetry 96 96 11/23/17 12:00 Temperature 97.8 F Pulse Rate 94 H Respiratory Rate 18 Blood Pressure 112/70 Pulse Oximetry 96 Intake & Output 11/22/17 11/23/17 11/23/17 18:59 06:59 18:59 Intake Total 3360 / 3360 590 / 590 1050 / 1050 Output Total 1210 / 1210 800 / 800 250 / 250 Balance 2150 / 2150 -210 / -210 800 / 800 Intake: IV 2400 / 2400 350 / 350 1050 / 1050 NS Inj 1,000 ML @ 100 mls/hr IV 2000 / 2000 1000 / 1000 .CONT .Q10H [facility] Rx#:[id number] Zosyn 3.375 GM Premix 50 ML @ 150 / 150 100 / 100 50 / 50 100 mls/hr IV.SIG Q6H [facility] Rx#: [id number] Vancomycin Inj 1,000 MG In NS 250 / 250 250 / 250 Inj 250 ML @ 250 mls/hr IV.SIG Q12H [facility] Rx#:[id number] Oral 360 / 360 240 / 240 Anesthesia Amount 600 / 600 Output: Urine 1100 / 1100 750 / 750 250 / 250 Estimated Blood Loss 10 / 10 Wound Drainage 100 / 100 Right Groin 100 / 100 Wound Vac Amount 50 / 50 Left Groin 50 / 50 Other: Mode Setting Left Groin Continuous Right Anterior Groin Continuous # Voids 7 Date of Last Bowel Movement 11/22/17 # Bowel Movements 1 Laboratory Results - last 24 hr 11/23/17 11:45 Vancomycin Trough 11.1 H Microbiology 11/22/17 10:45 Gram Stain - Final Tissue - Groin Wound Culture - Preliminary Staphylococcus species 11/22/17 10:45 Gram Stain - Final Abscess - Groin Wound Culture - Preliminary S. aureus MRSA 11/22/17 10:45 Acid Fast Bacilli Smear - Final Tissue - Groin No acid fast bacilli seen 11/22/17 10:45 Acid Fast Bacilli Smear - Final Abscess - Groin No acid fast bacilli seen 11/21/17 21:42 Aerobic Blood Culture - Preliminary Blood - Peripheral No growth in 2 days Anaerobic Blood Culture - Preliminary No growth in 2 days 11/21/17 21:35 Aerobic Blood Culture - Preliminary Blood - Peripheral No growth in 2 days Anaerobic Blood Culture - Preliminary No growth in 2 days 11/22/17 10:45 Fungal Smear - Final Tissue - Groin No fungal elements seen 11/22/17 10:45 Fungal Smear - Final Abscess - Groin No fungal elements seen
[2017-11-23] MEDS ORDERED: Collagenase Oint 30 GM Tube TOPICAL SCH (21:00)
[2017-11-23] MEDS: traZODone 50 MG Tablet PO SCH (21:25)
[2017-11-23] MEDS: Vancomycin Inj 1,250 MG in Sodium Chlor 0.9% Inj 250 ML IV.SIG SCH (23:30)
[2017-11-24 03:55] LABS: Hematocrit 31.6 % (39.0-51.0); Hemoglobin 10.7 gm/dL (13.0-17.0); Mean Corpuscular HGB Conc 33.8 % (32.0-36.0); Mean Corpuscular Hemoglobin 31.2 pg (27.0-34.0); Mean Corpuscular Volume 92.4 fL (80.0-100.0); Mean Platelet Volume 9.3 fL (7.0-11.0); Platelet Count 96 th/mm3 (150-450); Red Blood Count 3.42 mil/mm3 (4.50-5.90); Red Cell Distribution Width 14.1 % (11.6-17.2); White Blood Count 2.9 th/mm3 (4.0-11.0)
[2017-11-24 04:13] LABS: Anion Gap 9 meq/L (5-15); Blood Urea Nitrogen 5 mg/dL (7-18); Calcium 8.3 mg/dL (8.5-10.1); Carbon Dioxide 26.3 meq/L (21.0-32.0); Chloride 107 meq/L (98-107); Glomerular Filtration Rate Greater Than 89 mL/min (>89); Glucose,Random 94 mg/dL (74-106); Potassium 3.6 meq/L (3.5-5.1); Sodium 142 meq/L (136-145)
[2017-11-24] MEDS: oxyCODONE/Acetaminophen 10/325 Tablet PO SCH ×4 (04:26→22:10)
[2017-11-24] MEDS: Piperacil/Tazo 3.375 GM Premix 50 ML IV.SIG SCH ×4 (04:27→22:13)
[2017-11-24] MEDS: Morphine Sulfate 30 MG SR Tablet PO SCH ×3 (05:21→22:08)
[2017-11-24] MEDS: Furosemide 40 MG Tablet PO SCH (08:57)
[2017-11-24] MEDS: Collagenase Oint 30 GM Tube TOPICAL SCH (08:58)
[2017-11-24] MEDS: Senna/Docusate Sodium 8.6/50 MG Tablet PO SCH ×2 (08:58→22:12)
[2017-11-24] MEDS: Gabapentin 300 MG Capsule PO SCH ×4 (08:58→17:03)
--- NOTE | 2017-11-24 11:33 | P.PNIM ---
Subjective Interval history: The patient was upset about the food photographer in the hospital. He also complained that his lower extremities were very swollen. He says he has been sleeping in a chair, which is what he does at home. Physical Exam Vital signs: Vital Signs 11/23/17 12:00 11/23/17 16:00 11/23/17 20:00 Temperature 97.8 F 97.4 F L 97.7 F Pulse Rate 94 H 91 H 97 H Respiratory Rate 18 20 Blood Pressure 112/70 114/69 105/64 Pulse Oximetry 96 98 98 11/23/17 22:35 11/24/17 00:00 11/24/17 01:16 Temperature 97.8 F Pulse Rate 94 H Respiratory Rate 16 18 18 Blood Pressure 111/67 Pulse Oximetry 96 11/24/17 04:00 11/24/17 08:00 Temperature 98.1 F 97.8 F Pulse Rate 85 90 Respiratory Rate 18 19 Blood Pressure 109/61 99/57 L Pulse Oximetry 97 96 Intake & Output 11/23/17 11/24/17 11/24/17 18:59 06:59 18:59 Intake Total 2940 / 2940 1332.5 / 1332.5 Output Total 1300 / 1300 900 / 900 Balance 1640 / 1640 432.5 / 432.5 Intake: IV 2100 / 2100 612.5 / 612.5 NS Inj 1,000 ML @ 100 mls/hr IV 1999 / 1999 .CONT .Q10H [facility] Rx#:[id number] Zosyn 3.375 GM Premix 50 ML @ 100 / 100 100 / 100 100 mls/hr IV.SIG Q6H [facility] Rx#: [id number] Vancomycin Inj 1,000 MG In NS 250 / 250 Inj 250 ML @ 250 mls/hr IV.SIG Q12H [facility] Rx#:[id number] Vancomycin Inj 1,250 MG In NS 262.5 / 262.5 Inj 250 ML @ 250 mls/hr IV.SIG Q12H [facility] Rx#:[id number] Oral 840 / 840 720 / 720 Output: Urine 1250 / 1250 900 / 900 Wound Vac Amount 50 / 50 Right Groin 50 / 50 Other: Mode Setting Right Groin Continuous Date of Last Bowel Movement 11/23/17 # Bowel Movements 1 2 Narrative: Gen.: No acute distress Cardiovascular: Regular rate and rhythm. No murmurs, rubs or gallops. Respiratory: Lungs clear to auscultation bilaterally. No wheezes or rhonchi. Abdomen: Soft, nontender, nondistended. No peritoneal signs. Musculoskeletal: No gross deformities. 2+ LE edema. Skin: Right groin has a wound VAC in place. Neuro: Sensory and motor grossly intact. Cranial nerves II through XII grossly intact. Results - Labs CBC & Chem 7: 11/24/17 03:21 11/24/17 03:21 Laboratory Results - last 24 hr 11/22/17 11/23/17 11/24/17 10:08 11:45 03:21 WBC 2.9 L RBC 3.42 L Hgb 10.7 L Hct 31.6 L MCV 92.4 MCH 31.2 MCHC 33.8 RDW 14.1 Plt Count 96 L MPV 9.3 Sodium Potassium Chloride Carbon Dioxide Anion Gap BUN Creatinine Estimated GFR Random Glucose Calcium Vancomycin Trough 11.1 H MTS Gel Crossmatch See Detail 11/24/17 03:21 WBC RBC Hgb Hct MCV MCH MCHC RDW Plt Count MPV Sodium 142 Potassium 3.6 Chloride 107 Carbon Dioxide 26.3 Anion Gap 9 BUN 5 L Creatinine 0.79 Estimated GFR Greater than 89 Random Glucose 94 Calcium 8.3 L Vancomycin Trough MTS Gel Crossmatch Microbiology 11/21/17 21:42 Blood - Peripheral Aerobic Blood Culture - Preliminary No growth in 3 days 11/21/17 21:42 Blood - Peripheral Anaerobic Blood Culture - Preliminary No growth in 3 days 11/21/17 21:35 Blood - Peripheral Aerobic Blood Culture - Preliminary No growth in 3 days 11/21/17 21:35 Blood - Peripheral Anaerobic Blood Culture - Preliminary No growth in 3 days 11/22/17 10:45 Tissue - Groin Gram Stain - Final 11/22/17 10:45 Tissue - Groin Wound Culture - Final S. aureus MRSA 11/22/17 10:45 Abscess - Groin Gram Stain - Final 11/22/17 10:45 Abscess - Groin Wound Culture - Final S. aureus MRSA 11/22/17 10:45 Tissue - Groin Acid Fast Bacilli Smear - Final No acid fast bacilli seen 11/22/17 10:45 Abscess - Groin Acid Fast Bacilli Smear - Final No acid fast bacilli seen Assessment and Plan - Assessment (1) PVD (peripheral vascular disease) Code(s): I73.9 - Peripheral vascular disease, unspecified Status: Acute (2) Abscess of groin, right Code(s): L02.214 - Cutaneous abscess of groin Status: Acute - Plan Right groin abscess/ suspect graft infection -Vascular surgery following. Patient is status post I&D of the right groin and wound VAC placement. Wound nurse following. -Continue vancomycin and Zosyn -Blood cultures pending -Infectious disease consulted, appreciate recommendations -pain mgt with home meds RTC MS, scheduled Percocet. As needed Dilaudid. He is a cancer patient and states he has been using narcotics chronically. Non-small cell lung cancer (recurrent) Patient states he has not undergone chemotherapy since his recurrence Recurrence occurred after 4 months of permission His oncologist is at [facility] Follow-up as outpatient once infection under control Continue home pain medication regimen of morphine, Percocet and Dilaudid Edema The pt complains of increasing LE edema. - d/c IVFs. - increase Lasix to 40 mg IV daily and monitor Is and Os. PPx: SCDs
[2017-11-24] MEDS ORDERED: Potassium Chloride 25 MEQ Effervescent Tablet PO ONE (12:27)
[2017-11-24] MEDS: Vancomycin Inj 1,250 MG in Sodium Chlor 0.9% Inj 250 ML IV.SIG SCH (13:06)
--- NOTE | 2017-11-24 13:30 | P.PNVS ---
Subjective Subjective/Hospital Course: 51-year-old male who underwent about a month ago axillobifemoral bypass by Dr. Hendrickson and was successfully discharged with excellent blood flow to the both legs, developed swelling in the right groin about 5 days ago and was seen today by his wound care doctor who aspirated purulent material from the right groin. Indeed there is a moderate swelling of the right groin with some redness and tenderness This is consistent with infection of the right groin. Patient unfortunately has axillobifemoral bypass and this is the right leg of the graft so chances of salvaging this are small but every effort should be made to do so because contrary patient will lose the flow to the right leg. 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 Patient will be taken to the operating room for I&D of the right groin and wound VAC placement This will need to be washed out in the future and there is a small chance that this may be salvaged but there is significant chance that this part of the graft will need to be resected Patient will be placed on antibiotics IV fluids admitted to medicine infectious disease will be consulted and then patient will require drainage of the same as above stated. 11/23/2017 Patient is status post drainage of the right groin area Wound VAC in place and drainage is serosanguineous Area around it is nice and clean and noninflamed Excellent distal pulses and graft is patent and well-functioning. Cultures are pending Will have wound VAC change every Monday and Monday Depending on the cultures and antibiotic selection may change In the long run this may be a salvageable graft 11/24/2017 Area of the groin graft is clean and wound VAC drainage is serosanguineous and not purulent Wound VAC to be changed today by wound care I discussed this with Dr. Urrutia and I believe this may be a salvageable graft at this time as long as the local care and antibiotic coverage is adequate. Unfortunately patient has decreased immune resistance due to recurrent non-small cell carcinoma of the lung and related therapy and therefore systemic spread of this infection would not be unlikely. Objective Vital Signs / I&O: Vital Signs 11/23/17 16:00 11/23/17 20:00 11/23/17 22:35 Temperature 97.4 F L 97.7 F Pulse Rate 91 H 97 H Respiratory Rate 20 16 Blood Pressure 114/69 105/64 Pulse Oximetry 98 98 11/24/17 00:00 11/24/17 01:16 11/24/17 04:00 Temperature 97.8 F 98.1 F Pulse Rate 94 H 85 Respiratory Rate 18 18 18 Blood Pressure 111/67 109/61 Pulse Oximetry 96 97 11/24/17 08:00 11/24/17 13:05 Temperature 97.8 F Pulse Rate 90 Respiratory Rate 19 20 Blood Pressure 99/57 L Pulse Oximetry 96 Intake & Output 11/23/17 11/24/17 11/24/17 18:59 06:59 18:59 Intake Total 2940 / 2940 1332.5 / 1332.5 Output Total 1300 / 1300 900 / 900 Balance 1640 / 1640 432.5 / 432.5 Intake: IV 2100 / 2100 612.5 / 612.5 NS Inj 1,000 ML @ 100 mls/hr IV 1999 / 1999 .CONT .Q10H [facility] Rx#:[id number] Zosyn 3.375 GM Premix 50 ML @ 100 / 100 100 / 100 100 mls/hr IV.SIG Q6H [facility] Rx#: [id number] Vancomycin Inj 1,000 MG In NS 250 / 250 Inj 250 ML @ 250 mls/hr IV.SIG Q12H [facility] Rx#:[id number] Vancomycin Inj 1,250 MG In NS 262.5 / 262.5 Inj 250 ML @ 250 mls/hr IV.SIG Q12H [facility] Rx#:[id number] Oral 840 / 840 720 / 720 Output: Urine 1250 / 1250 900 / 900 Wound Vac Amount 50 / 50 Right Groin 50 / 50 Other: Mode Setting Right Groin Continuous Date of Last Bowel Movement 11/23/17 # Bowel Movements 1 2 Laboratory Results - last 24 hr 11/22/17 11/24/17 11/24/17 10:08 03:21 03:21 WBC 2.9 L RBC 3.42 L Hgb 10.7 L Hct 31.6 L MCV 92.4 MCH 31.2 MCHC 33.8 RDW 14.1 Plt Count 96 L MPV 9.3 Sodium 142 Potassium 3.6 Chloride 107 Carbon Dioxide 26.3 Anion Gap 9 BUN 5 L Creatinine 0.79 Estimated GFR Greater than 89 Random Glucose 94 Calcium 8.3 L MTS Gel Crossmatch See Detail Microbiology 11/21/17 21:42 Aerobic Blood Culture - Preliminary Blood - Peripheral No growth in 3 days Anaerobic Blood Culture - Preliminary No growth in 3 days 11/21/17 21:35 Aerobic Blood Culture - Preliminary Blood - Peripheral No growth in 3 days Anaerobic Blood Culture - Preliminary No growth in 3 days 11/22/17 10:45 Gram Stain - Final Tissue - Groin Wound Culture - Final S. aureus MRSA 11/22/17 10:45 Gram Stain - Final Abscess - Groin Wound Culture - Final S. aureus MRSA 11/22/17 10:45 Acid Fast Bacilli Smear - Final Tissue - Groin No acid fast bacilli seen 11/22/17 10:45 Acid Fast Bacilli Smear - Final Abscess - Groin No acid fast bacilli seen
--- NOTE | 2017-11-24 17:57 | P.CONID ---
History of Present Illness Service: ID Consult date: 11/24/17 Requesting Physician: Yessy Moeller Reason for Consult: graft infection Primary Care Provider: PROVIDER NON STAFF History of Present Illness: 51 yo male with PVD sp aortobifemoral bypass about a month ago by Dr. Hendrickson for severe peripheral vascular disease and inflow occlusion Also was just diagnosed with a recurrence of non-small cell carcinoma of the lung His counts are mildly low (WBC 2900, plt 96) Pt was was discharged with good pulses and about 1 week ago he noticed swelling of the right groin. He also has a small opening in L groin He is sp Right groin exploration and drainage and wound VAC placement by Dr Moeller Cultures are growing MRSA Review of Systems All other systems reviewed negative except as stated in HPI PMFSH - History History Provided By: Patient - Medical History Medical History: Medical History (Last Reviewed 01/21/18 @ 17:50 by Gisele Urrutia MD) CD (celiac disease) Hepatitis C High cholesterol Infection of skin due to methicillin resistant Staphylococcus aureus (MRSA) Lung cancer Peripheral arterial disease - Surgical History Surgical History: Surgical History (Last Reviewed 01/21/18 @ 17:50 by Gisele Urrutia MD) H/O neck surgery History of eye surgery Previous back surgery S/P femoral-femoral bypass surgery - Family History Family History: Family History (Last Reviewed 01/21/18 @ 17:50 by Gisele Urrutia MD) Other No family history of cardiac disease - Social History I have reviewed the patient's Social History: Yes - Tobacco History Second Hand Smoke Exposure: No Tobacco Use In Past 30 Days: No Smoking Status: Former smoker Tobacco Type: Cigarettes - Alcohol History How Often Do You Have a Drink Containing Alcohol: Never - Substance Use History Substance History: Past History - Travel History Recent Travel in the [place] Within the Last 8 Weeks: No Recent Travel Out of the Country Within the Last 8 Weeks: No - Immunization History Tetanus Immunization: Unsure Hx Influenza Vaccine This Season: Yes Medications and Allergies Active Medications: Active Medications Acetaminophen (Tylenol) 650 mg PO Q4H PRN PRN Reason: Temp > 100.4 Atorvastatin Calcium (Lipitor) 40 mg PO HS [facility] Last Admin: 11/23/17 21:25 Dose: 40 mg Chlorhexidine Gluconate (Chlorhexidine 2% Cloth) 3 pack TOPICAL ASSISTANT TRACK COACH [facility] Stop: 11/25/17 09:41 Collagenase (Santyl Oint) 1 applicatio TOPICAL DAILY [facility] Last Admin: 11/24/17 08:58 Dose: 1 applicatio Furosemide (Lasix Inj) 40 mg IV.PUSH DAILY [facility] Last Admin: 11/24/17 13:55 Dose: 40 mg Gabapentin (Neurontin) 600 mg PO TID [facility] Last Admin: 11/24/17 17:03 Dose: Not Given Hydromorphone HCl (Dilaudid) 2 mg PO Q4H PRN PRN Reason: BREAKTHROUGH PAIN Last Admin: 11/24/17 10:16 Dose: 2 mg Pharmacy Profile Note (Vancomycin Consult Pharmacy) 0 mls @ 0 mls/hr OTHER UNSCH [facility] Piperacillin/Tazobactam/Dextrose (Zosyn 3.375 Gm Premix) 50 mls @ 100 mls/hr IV.SIG Q6H [facility] Last Admin: 11/24/17 16:35 Dose: 100 mls/hr Lactated Ringer's (Lr 1000 Ml Inj) 1,000 mls @ 30 mls/hr IV.SIG .Q24H [facility] Stop: 11/25/17 09:41 Last Admin: 11/23/17 11:51 Dose: Not Given Sodium Chloride (Ns Inj) 500 mls @ 30 mls/hr IV.SIG .Q10H [facility] Stop: 11/25/17 09:41 Vancomycin HCl 1,250 mg/ (Sodium Chloride) 262.5 mls @ 250 mls/hr IV.SIG Q12H [facility] Last Admin: 11/24/17 13:06 Dose: 250 mls/hr Metoprolol Tartrate (Lopressor) 25 mg PO ASSISTANT TRACK COACH [facility] Stop: 11/25/17 09:41 Miscellaneous Information ([facility] Ordered Lab Info) 0 each OTHER ONCE ONE Stop: 11/25/17 11:46 Morphine Sulfate (Oramorph Sr) 90 mg PO Q8HR [facility] Last Admin: 11/24/17 13:54 Dose: 90 mg Ondansetron HCl (Zofran Odt) 4 mg PO Q6H PRN PRN Reason: NAUSEA OR VOMITING Oxycodone/Acetaminophen (Percocet 10/325 Mg) 1 tab PO Q6H [facility] Last Admin: 11/24/17 16:34 Dose: 1 tab Pantoprazole Sodium (Protonix) 40 mg PO DAILY [facility] Last Admin: 11/24/17 08:58 Dose: 40 mg Povidone Iodine (Betadine 5% Antisepsis Kit) 1 applicatio EACH NARE ASSISTANT TRACK COACH [facility] Stop: 11/25/17 09:41 Senna/Docusate Sodium (Tita-Colace) 2 tab PO BID [facility] Last Admin: 11/24/17 08:58 Dose: Not Given Trazodone HCl (Desyrel) 50 mg PO [facility] Last Admin: 11/23/17 21:25 Dose: 50 mg Allergies Allergy/AdvReac Type Severity Reaction Status Date / Time cephalexin [From Keflex] Allergy Anaphylaxis Verified 11/21/17 16:01 sulfamethoxazole Allergy Anaphylaxis Verified 11/21/17 16:01 [From Bactrim] trimethoprim [From Bactrim] Allergy Anaphylaxis Verified 11/21/17 16:01 Home Medications Medication Instructions Recorded Confirmed Type aspirin 325 mg PO DAILY 10/28/17 11/22/17 History furosemide 40 mg PO DAILY 10/28/17 11/22/17 History gabapentin 600 mg PO TID 10/28/17 11/22/17 History hydromorphone 2 mg PO Q4H PRN 10/28/17 11/22/17 History morphine 90 mg PO Q8H 10/28/17 11/22/17 History oxycodone-acetaminophen [Percocet] 1 tab PO Q4H PRN 10/28/17 11/22/17 History trazodone 50 mg PO HS 10/28/17 11/22/17 History pantoprazole [Protonix] 40 mg PO DAILY 11/21/17 11/22/17 History Exam Vital signs: Vital Signs 11/23/17 20:00 11/23/17 22:35 11/24/17 00:00 Temperature 97.7 F 97.8 F Pulse Rate 97 H 94 H Respiratory Rate 20 16 18 Blood Pressure 105/64 111/67 Pulse Oximetry 98 96 11/24/17 01:16 11/24/17 04:00 11/24/17 08:00 Temperature 98.1 F 97.8 F Pulse Rate 85 90 Respiratory Rate 18 18 19 Blood Pressure 109/61 99/57 L Pulse Oximetry 97 96 11/24/17 12:00 11/24/17 13:05 11/24/17 16:35 Temperature 97.6 F Pulse Rate 110 H Respiratory Rate 20 20 20 Blood Pressure 110/76 Pulse Oximetry 98 Intake & Output 11/23/17 11/24/17 11/24/17 18:59 06:59 18:59 Intake Total 2940 / 2940 1332.5 / 1332.5 50 / 50 Output Total 1300 / 1300 900 / 900 Balance 1640 / 1640 432.5 / 432.5 50 / 50 Intake: IV 2100 / 2100 612.5 / 612.5 50 / 50 NS Inj 1,000 ML @ 100 mls/hr IV 1999 / 1999 .CONT .Q10H [facility] Rx#:[id number] Zosyn 3.375 GM Premix 50 ML @ 100 / 100 100 / 100 50 / 50 100 mls/hr IV.SIG Q6H [facility] Rx#: [id number] Vancomycin Inj 1,000 MG In NS 250 / 250 Inj 250 ML @ 250 mls/hr IV.SIG Q12H [facility] Rx#:[id number] Vancomycin Inj 1,250 MG In NS 262.5 / 262.5 Inj 250 ML @ 250 mls/hr IV.SIG Q12H [facility] Rx#:[id number] Oral 840 / 840 720 / 720 Output: Urine 1250 / 1250 900 / 900 Wound Vac Amount 50 / 50 Right Groin 50 / 50 Other: Mode Setting Right Groin Continuous Date of Last Bowel Movement 11/23/17 # Bowel Movements 1 2 - Constitutional no acute distress, thin - Routine HEENT Exam Head: Present: normocephalic, atraumatic Eye: Present: EOMI, PERRL ENT: Present: mucous membranes moist, oropharynx clear Comments: poor dentition - Routine Neck Exam Present: supple, full ROM, lymphadenopathy (none) - Routine Respiratory Exam Present: decreased breath sounds, CTA bilaterally - Routine Cardiovascular Exam Present: RRR, S1, S2 Comments: perfused perifery, refill brisk - Routine Abdominal Exam Present: soft, normoactive bowel sounds Comments: not tender not distended no organomegaly - Routine Extremities Exam Comments: no cyanosis, no clubbing tight edema of BLE R groin with VAC inplace with serosang dc L groin post op changes, inciison with small opening in the center and some minimal serous drainage - Routine Skin Exam Comments: no rash warm, dry - Routine Neurological Exam Present: alert, oriented X3, CN II-XII intact, moving all extremities, vision grossly intact, hearing grossly intact - Routine Psychiatric Exam Present: normal affect, cooperative Results - Labs CBC & Chem 7: 12/02/17 02:35 12/02/17 02:35 Labs: Laboratory Results - last 24 hr 11/22/17 11/24/17 11/24/17 10:08 03:21 03:21 WBC 2.9 L RBC 3.42 L Hgb 10.7 L Hct 31.6 L MCV 92.4 MCH 31.2 MCHC 33.8 RDW 14.1 Plt Count 96 L MPV 9.3 Sodium 142 Potassium 3.6 Chloride 107 Carbon Dioxide 26.3 Anion Gap 9 BUN 5 L Creatinine 0.79 Estimated GFR Greater than 89 Random Glucose 94 Calcium 8.3 L MTS Gel Crossmatch See Detail Assessment and Plan - Plan Infected synthetic graft sp aortobyfemoral bypass RLE - sp I+D : - op report reviewed , about 80 mL of turbid fluid and devitalized tissue MRSA in wound clx of R groin wound Blood clx are negative cont vancomycin kitty Moeller
[2017-11-24] MEDS: traZODone 50 MG Tablet PO SCH (22:08)
[2017-11-25] MEDS: Vancomycin Inj 1,250 MG in Sodium Chlor 0.9% Inj 250 ML IV.SIG SCH ×2 (00:04→11:48)
[2017-11-25] MEDS: Piperacil/Tazo 3.375 GM Premix 50 ML IV.SIG SCH ×4 (04:26→22:07)
[2017-11-25] MEDS: oxyCODONE/Acetaminophen 10/325 Tablet PO SCH ×4 (04:27→22:06)
[2017-11-25 04:40] LABS: Hematocrit 28.9 % (39.0-51.0); Mean Corpuscular HGB Conc 34.8 % (32.0-36.0); Mean Corpuscular Hemoglobin 31.8 pg (27.0-34.0); Mean Corpuscular Volume 91.5 fL (80.0-100.0); Platelet Count 92 th/mm3 (150-450); Red Blood Count 3.15 mil/mm3 (4.50-5.90); Red Cell Distribution Width 13.9 % (11.6-17.2); White Blood Count 3.4 th/mm3 (4.0-11.0)
[2017-11-25 05:11] LABS: Anion Gap 7 meq/L (5-15); Blood Urea Nitrogen 6 mg/dL (7-18); Calcium 8.4 mg/dL (8.5-10.1); Chloride 105 meq/L (98-107); Glomerular Filtration Rate Greater Than 89 mL/min (>89); Glucose,Random 100 mg/dL (74-106); Potassium 3.8 meq/L (3.5-5.1); Sodium 141 meq/L (136-145)
[2017-11-25] MEDS: Morphine Sulfate 30 MG SR Tablet PO SCH ×3 (06:07→22:06)
[2017-11-25] MEDS: Gabapentin 300 MG Capsule PO SCH ×5 (08:43→19:07)
[2017-11-25] MEDS: Senna/Docusate Sodium 8.6/50 MG Tablet PO SCH ×2 (08:43→20:06)
[2017-11-25] MEDS: Collagenase Oint 30 GM Tube TOPICAL SCH (08:44)
--- NOTE | 2017-11-25 10:05 | P.PNVS ---
Subjective Subjective/Hospital Course: Pt well known to me - s/p L Ax-fem-fem on 10/23 and was doing great in clinic, with only superficial L groin opening. Presented with R groin abscess, req operative drainage by Dr. Moeller. VAC placed. No systemic symptoms of malaise or fevers. No groin redness. Feet very edematous, baseline (c/w cirrhosis). Objective Vital Signs / I&O: Vital Signs 11/24/17 12:00 11/24/17 13:05 11/24/17 16:00 Temperature 97.6 F 97.8 F Pulse Rate 110 H 116 H Respiratory Rate 20 20 20 Blood Pressure 110/76 111/73 Pulse Oximetry 98 98 11/24/17 16:35 11/24/17 18:51 11/24/17 20:00 Temperature 97.9 F Pulse Rate 119 H Respiratory Rate 20 12 17 Blood Pressure 118/67 Pulse Oximetry 96 11/25/17 00:00 11/25/17 04:00 11/25/17 08:00 Temperature 98.1 F 97.7 F 97.6 F Pulse Rate 108 H 94 H 91 H Respiratory Rate 18 18 17 Blood Pressure 122/75 108/68 95/58 L Pulse Oximetry 96 97 98 11/25/17 08:43 11/25/17 09:59 Temperature Pulse Rate Respiratory Rate 20 18 Blood Pressure Pulse Oximetry Intake & Output 11/24/17 11/25/17 11/25/17 18:59 06:59 18:59 Intake Total 362.5 / 362.5 2.5 / 2.5 Balance 362.5 / 362.5 2.5 / 1961.5 Weight 72.5 kg Intake: IV 362.5 / 362.5 362.5 / 362.5 Zosyn 3.375 GM Premix 50 ML @ 100 / 100 100 / 100 100 mls/hr IV.SIG Q6H ALANA Rx#: [id number] Vancomycin Inj 1,250 MG In NS 262.5 / 262.5 262.5 / 262.5 Inj 250 ML @ 250 mls/hr IV.SIG Q12H ALANA Rx#:[id number] Oral 1600 / 1600 Other: # Voids 4 Physical Exam: Sitting in chair, comfortable L chest wall incision c/d/i L groin with small superficial opening. R groin VAC in place. No surrounding erythema. Laboratory Results - last 24 hr 11/25/17 11/25/17 04:30 04:30 WBC 3.4 L RBC 3.15 L Hgb 10.0 L Hct 28.9 L MCV 91.5 MCH 31.8 MCHC 34.8 RDW 13.9 Plt Count 92 L MPV 9.0 Sodium 141 Potassium 3.8 Chloride 105 Carbon Dioxide 29.0 Anion Gap 7 BUN 6 L Creatinine 0.88 Estimated GFR Greater than 89 Random Glucose 100 Calcium 8.4 L Microbiology 11/21/17 21:42 Aerobic Blood Culture - Preliminary Blood - Peripheral No growth in 3 days Anaerobic Blood Culture - Preliminary No growth in 3 days 11/21/17 21:35 Aerobic Blood Culture - Preliminary Blood - Peripheral No growth in 3 days Anaerobic Blood Culture - Preliminary No growth in 3 days 11/22/17 10:45 Gram Stain - Final Tissue - Groin Wound Culture - Final S. aureus MRSA 11/22/17 10:45 Gram Stain - Final Abscess - Groin Wound Culture - Final S. aureus MRSA Assessment and Plan - Plan Continue IV antibiotics. Will take VAC down on MONDAY and inspect wound. Likely able to replace VAC and set up discharge with IV antibiotics.
--- NOTE | 2017-11-25 10:07 | P.PNIM ---
Subjective Interval history: The patient says he has been peeing more on the new Lasix dose. He says his pain is okay but he requests to have his Dilaudid scheduled. He said he spoke with the vascular surgeon this morning. Discussed with nursing. Physical Exam Vital signs: Vital Signs 11/24/17 12:00 11/24/17 13:05 11/24/17 16:00 Temperature 97.6 F 97.8 F Pulse Rate 110 H 116 H Respiratory Rate 20 20 20 Blood Pressure 110/76 111/73 Pulse Oximetry 98 98 11/24/17 16:35 11/24/17 18:51 11/24/17 20:00 Temperature 97.9 F Pulse Rate 119 H Respiratory Rate 20 12 17 Blood Pressure 118/67 Pulse Oximetry 96 11/25/17 00:00 11/25/17 04:00 11/25/17 08:00 Temperature 98.1 F 97.7 F 97.6 F Pulse Rate 108 H 94 H 91 H Respiratory Rate 18 18 17 Blood Pressure 122/75 108/68 95/58 L Pulse Oximetry 96 97 98 11/25/17 08:43 Temperature Pulse Rate Respiratory Rate 20 Blood Pressure Pulse Oximetry Intake & Output 11/24/17 11/25/17 11/25/17 18:59 06:59 18:59 Intake Total 362.5 / 362.5 2.5 / 2.5 Balance 362.5 / 362.5 2.5 / 2.5 Weight 72.5 kg Intake: IV 362.5 / 362.5 362.5 / 362.5 Zosyn 3.375 GM Premix 50 ML @ 100 / 100 100 / 100 100 mls/hr IV.SIG Q6H ALANA Rx#: [id number] Vancomycin Inj 1,250 MG In NS 262.5 / 262.5 262.5 / 262.5 Inj 250 ML @ 250 mls/hr IV.SIG Q12H ALANA Rx#:[id number] Oral 1600 / 1600 Other: # Voids 4 Narrative: Gen.: No acute distress Cardiovascular: Regular rate and rhythm. No murmurs, rubs or gallops. Respiratory: Lungs clear to auscultation bilaterally. No wheezes or rhonchi. Abdomen: Soft, nontender, nondistended. No peritoneal signs. Musculoskeletal: No gross deformities. 2+ LE edema. Skin: Right groin has a wound VAC in place. Neuro: Sensory and motor grossly intact. Cranial nerves II through XII grossly intact. Results - Labs CBC & Chem 7: 11/25/17 04:30 11/25/17 04:30 Laboratory Results - last 24 hr 11/25/17 11/25/17 04:30 04:30 WBC 3.4 L RBC 3.15 L Hgb 10.0 L Hct 28.9 L MCV 91.5 MCH 31.8 MCHC 34.8 RDW 13.9 Plt Count 92 L MPV 9.0 Sodium 141 Potassium 3.8 Chloride 105 Carbon Dioxide 29.0 Anion Gap 7 BUN 6 L Creatinine 0.88 Estimated GFR Greater than 89 Random Glucose 100 Calcium 8.4 L Microbiology 11/21/17 21:42 Blood - Peripheral Aerobic Blood Culture - Preliminary No growth in 3 days 11/21/17 21:42 Blood - Peripheral Anaerobic Blood Culture - Preliminary No growth in 3 days 11/21/17 21:35 Blood - Peripheral Aerobic Blood Culture - Preliminary No growth in 3 days 11/21/17 21:35 Blood - Peripheral Anaerobic Blood Culture - Preliminary No growth in 3 days 11/22/17 10:45 Tissue - Groin Gram Stain - Final 11/22/17 10:45 Tissue - Groin Wound Culture - Final S. aureus MRSA 11/22/17 10:45 Abscess - Groin Gram Stain - Final 11/22/17 10:45 Abscess - Groin Wound Culture - Final S. aureus MRSA Assessment and Plan - Assessment (1) PVD (peripheral vascular disease) Code(s): I73.9 - Peripheral vascular disease, unspecified Status: Acute (2) Abscess of groin, right Code(s): L02.214 - Cutaneous abscess of groin Status: Acute - Plan Right groin abscess/ suspect graft infection -Vascular surgery following. Patient is status post I&D of the right groin and wound VAC placement. Wound nurse following. - ID consult appreciated. Continue vancomycin and Zosyn. -Blood cultures pending. -pain mgt with home meds RTC MS, scheduled Percocet. As needed Dilaudid. He is a cancer patient and states he has been using narcotics chronically. Non-small cell lung cancer (recurrent) Patient states he has not undergone chemotherapy since his recurrence Recurrence occurred after 4 months of permission His oncologist is at [facility] Follow-up as outpatient once infection under control Continue home pain medication regimen of morphine, Percocet and Dilaudid Edema The pt complains of increasing LE edema. - d/c IVFs. - increase Lasix to 40 mg IV daily and monitor Is and Os. Continue KCl daily. PPx: SCDs
[2017-11-25] MEDS ORDERED: Pharmacy Ordered Lab Info OTHER ONE (11:45)
[2017-11-25] MEDS: traZODone 50 MG Tablet PO SCH (20:07)
[2017-11-26] MEDS: Vancomycin Inj 1,250 MG in Sodium Chlor 0.9% Inj 250 ML IV.SIG SCH ×2 (00:14→11:03)
[2017-11-26] MEDS: oxyCODONE/Acetaminophen 10/325 Tablet PO SCH ×4 (04:13→21:19)
[2017-11-26] MEDS: Piperacil/Tazo 3.375 GM Premix 50 ML IV.SIG SCH ×4 (04:14→21:19)
[2017-11-26] MEDS: Morphine Sulfate 30 MG SR Tablet PO SCH ×3 (06:35→21:19)
[2017-11-26] MEDS: Gabapentin 300 MG Capsule PO SCH ×4 (09:06→17:24)
[2017-11-26] MEDS: Senna/Docusate Sodium 8.6/50 MG Tablet PO SCH ×2 (09:12→20:37)
[2017-11-26] MEDS: Collagenase Oint 30 GM Tube TOPICAL SCH (09:13)
--- NOTE | 2017-11-26 15:55 | P.PNIM ---
Subjective Interval history: The patient says his legs are still very swollen and he would like his Lasix increased. Otherwise he has no acute complaints. Family at the bedside. Discussed with nursing. Physical Exam Vital signs: Vital Signs 11/25/17 16:00 11/25/17 16:39 11/25/17 17:00 Temperature 97.6 F Pulse Rate 113 H Respiratory Rate 17 20 18 Blood Pressure 159/87 H Pulse Oximetry 97 11/25/17 20:00 11/26/17 00:00 11/26/17 04:00 Temperature 97.9 F 97.8 F 97.8 F Pulse Rate 100 H 98 H 98 H Respiratory Rate 20 20 18 Blood Pressure 108/61 92/59 L 112/76 Pulse Oximetry 98 95 94 L 11/26/17 08:00 11/26/17 09:00 11/26/17 12:00 Temperature 97.8 F 97.9 F Pulse Rate 95 H 101 H 95 H Respiratory Rate 19 19 Blood Pressure 95/67 L 137/72 Pulse Oximetry 99 99 Intake & Output 11/25/17 11/26/17 11/26/17 18:59 06:59 18:59 Intake Total 1162.5 / 1162.5 843 / 843 50 / 50 Output Total 52 / 52 Balance 1162.5 / 1162.5 791 / 791 50 / 50 Intake: IV 362.5 / 362.5 363 / 363 50 / 50 Zosyn 3.375 GM Premix 50 ML @ 100 / 100 100 / 100 50 / 50 100 mls/hr IV.SIG Q6H ALANA Rx#: [id number] Vancomycin Inj 1,250 MG In NS 262.5 / 262.5 263 / 263 Inj 250 ML @ 250 mls/hr IV.SIG Q12H ALANA Rx#:[id number] Oral 800 / 800 480 / 480 Output: Stool 2 / 2 Wound Vac Amount 50 / 50 Right Groin 50 / 50 Other: Mode Setting Right Groin Continuous # Voids 3 5 Date of Last Bowel Movement 11/23/17 Narrative: Gen.: No acute distress Cardiovascular: Regular rate and rhythm. No murmurs, rubs or gallops. Respiratory: Lungs clear to auscultation bilaterally. No wheezes or rhonchi. Abdomen: Soft, nontender, nondistended. No peritoneal signs. Musculoskeletal: No gross deformities. 2+ LE edema. Skin: Right groin has a wound VAC in place. Neuro: Sensory and motor grossly intact. Cranial nerves II through XII grossly intact. Results - Labs CBC & Chem 7: 11/25/17 04:30 11/26/17 06:41 Laboratory Results - last 24 hr 11/26/17 06:41 Creatinine 1.07 Estimated GFR 73 L Microbiology 11/21/17 21:42 Blood - Peripheral Aerobic Blood Culture - Final No growth in 5 days 11/21/17 21:42 Blood - Peripheral Anaerobic Blood Culture - Final No growth in 5 days 11/21/17 21:35 Blood - Peripheral Aerobic Blood Culture - Final No growth in 5 days 11/21/17 21:35 Blood - Peripheral Anaerobic Blood Culture - Final No growth in 5 days Assessment and Plan - Assessment (1) PVD (peripheral vascular disease) Code(s): I73.9 - Peripheral vascular disease, unspecified Status: Acute (2) Abscess of groin, right Code(s): L02.214 - Cutaneous abscess of groin Status: Acute - Plan Right groin abscess/ suspect graft infection -Vascular surgery following. Patient is status post I&D of the right groin and wound VAC placement. Wound nurse following. Anticipate vac change tomorrow. - ID consult appreciated. Continue vancomycin and Zosyn. -pain mgt with home meds RTC MS, scheduled Percocet. As needed Dilaudid. He is a cancer patient and states he has been using narcotics chronically. Non-small cell lung cancer (recurrent) Patient states he has not undergone chemotherapy since his recurrence Recurrence occurred after 4 months of permission His oncologist is at [facility] Follow-up as outpatient once infection under control Continue home pain medication regimen of morphine, Percocet and Dilaudid Edema The pt complains of increasing LE edema. - d/c IVFs. - hold Lasix and monitor BMP in AM. Continue KCl daily. May change to PO Lasix in AM. PPx: SCDs
[2017-11-26] MEDS: traZODone 50 MG Tablet PO SCH (20:36)
[2017-11-27] MEDS: Vancomycin Inj 1,250 MG in Sodium Chlor 0.9% Inj 250 ML IV.SIG SCH ×2 (01:07→13:55)
[2017-11-27] MEDS: oxyCODONE/Acetaminophen 10/325 Tablet PO SCH ×4 (03:37→21:43)
[2017-11-27] MEDS: Piperacil/Tazo 3.375 GM Premix 50 ML IV.SIG SCH ×4 (03:38→21:19)
[2017-11-27] MEDS: Morphine Sulfate 30 MG SR Tablet PO SCH ×3 (05:45→21:44)
[2017-11-27 06:37] LABS: Calcium 8.3 mg/dL (8.5-10.1); Potassium 3.7 meq/L (3.5-5.1)
--- NOTE | 2017-11-27 08:37 | P.PNVS ---
Subjective Subjective/Hospital Course: Pt with stable LE edema no new pain does endorse R groin discomfort. Objective Vital Signs / I&O: Vital Signs 11/26/17 09:00 11/26/17 12:00 11/26/17 16:00 Temperature 97.9 F 98.1 F Pulse Rate 101 H 95 H 98 H Respiratory Rate 19 19 Blood Pressure 137/72 113/71 Pulse Oximetry 99 100 11/26/17 20:00 11/26/17 21:23 11/27/17 00:00 Temperature 98 F 98 F Pulse Rate 107 H 96 H Respiratory Rate 18 7 L 18 Blood Pressure 107/66 113/65 Pulse Oximetry 100 98 11/27/17 04:00 Temperature 97.7 F Pulse Rate 93 H Respiratory Rate 18 Blood Pressure 121/73 Pulse Oximetry 99 Intake & Output 11/26/17 11/27/17 11/27/17 18:59 06:59 18:59 Intake Total 1563 / 1563 820 / 820 Output Total 50 / 50 Balance 1563 / 1563 770 / 770 Intake: IV 363 / 363 100 / 100 Zosyn 3.375 GM Premix 50 ML @ 100 / 100 100 / 100 100 mls/hr IV.SIG Q6H ALANA Rx#: [id number] Vancomycin Inj 1,250 MG In NS 263 / 263 Inj 250 ML @ 250 mls/hr IV.SIG Q12H ALANA Rx#:[id number] Oral 1200 / 1200 720 / 720 Output: Wound Vac Amount 50 / 50 Left Groin 50 / 50 Other: Mode Setting Left Groin Continuous # Voids 4 3 Date of Last Bowel Movement 11/23/17 11/23/17 # Bowel Movements 1 Physical Exam: L groin with superficial skin separation without erythema R groin VAC changed today - excellent granulation tissue, no purulence and no exposed graft Laboratory Results - last 24 hr 11/27/17 05:50 Sodium 139 Potassium 3.7 Chloride 105 Carbon Dioxide 29.0 Anion Gap 5 BUN 8 Creatinine 1.04 Estimated GFR 75 L Random Glucose 104 Calcium 8.3 L Microbiology 11/21/17 21:42 Aerobic Blood Culture - Final Blood - Peripheral No growth in 5 days Anaerobic Blood Culture - Final No growth in 5 days 11/21/17 21:35 Aerobic Blood Culture - Final Blood - Peripheral No growth in 5 days Anaerobic Blood Culture - Final No growth in 5 days Assessment and Plan - Plan Continue IV antibiotics. VAC replace today and change Wed; if wound stable can d/c on IV antibiotics and HH RN for wound vac Discharge Planning: potentially Wed to home with HH RN vs rehab will arrange f/u in 1 week (12/06)
[2017-11-27] MEDS: Gabapentin 300 MG Capsule PO SCH ×3 (09:24→16:55)
[2017-11-27] MEDS: Senna/Docusate Sodium 8.6/50 MG Tablet PO SCH ×2 (09:25→20:27)
[2017-11-27] MEDS: Collagenase Oint 30 GM Tube TOPICAL SCH (09:26)
[2017-11-27] MEDS ORDERED: Pharmacy Ordered Lab Info OTHER ONE ×2 (11:45→23:45)
[2017-11-27] MEDS: Furosemide 40 MG Tablet PO SCH (12:00)
--- NOTE | 2017-11-27 12:05 | P.PNIM ---
Subjective Interval history: The patient was waiting for his wound VAC to be connected again. He requested that his Dilaudid be scheduled. He says he normally takes his pain medications like that at home. He says his swelling is getting better. Discussed with nursing. Physical Exam Vital signs: Vital Signs 11/26/17 16:00 11/26/17 20:00 11/26/17 21:23 Temperature 98.1 F 98 F Pulse Rate 98 H 107 H Respiratory Rate 19 18 7 L Blood Pressure 113/71 107/66 Pulse Oximetry 100 100 11/27/17 00:00 11/27/17 04:00 11/27/17 08:00 Temperature 98 F 97.7 F 97.6 F Pulse Rate 96 H 93 H 90 Respiratory Rate 18 18 17 Blood Pressure 113/65 121/73 111/56 L Pulse Oximetry 98 99 96 Intake & Output 11/26/17 11/27/17 11/27/17 18:59 06:59 18:59 Intake Total 1563 / 1563 820 / 820 50 / 50 Output Total 50 / 50 Balance 1563 / 1563 770 / 770 50 / 50 Intake: IV 363 / 363 100 / 100 50 / 50 Zosyn 3.375 GM Premix 50 ML @ 100 / 100 100 / 100 50 / 50 100 mls/hr IV.SIG Q6H ALANA Rx#: [id number] Vancomycin Inj 1,250 MG In NS 263 / 263 Inj 250 ML @ 250 mls/hr IV.SIG Q12H ALANA Rx#:[id number] Oral 1200 / 1200 720 / 720 Output: Wound Vac Amount 50 / 50 Left Groin 50 / 50 Other: Mode Setting Left Groin Continuous # Voids 4 3 Date of Last Bowel Movement 11/23/17 11/23/17 # Bowel Movements 1 Narrative: Gen.: No acute distress Cardiovascular: Regular rate and rhythm. No murmurs, rubs or gallops. Respiratory: Lungs clear to auscultation bilaterally. No wheezes or rhonchi. Abdomen: Soft, nontender, nondistended. No peritoneal signs. Musculoskeletal: No gross deformities. 2+ LE edema. Skin: Right groin has a wound VAC in place. Neuro: Sensory and motor grossly intact. Cranial nerves II through XII grossly intact. Results - Labs CBC & Chem 7: 11/25/17 04:30 11/27/17 05:50 Laboratory Results - last 24 hr 11/27/17 05:50 Sodium 139 Potassium 3.7 Chloride 105 Carbon Dioxide 29.0 Anion Gap 5 BUN 8 Creatinine 1.04 Estimated GFR 75 L Random Glucose 104 Calcium 8.3 L Microbiology 11/21/17 21:42 Blood - Peripheral Aerobic Blood Culture - Final No growth in 5 days 11/21/17 21:42 Blood - Peripheral Anaerobic Blood Culture - Final No growth in 5 days 11/21/17 21:35 Blood - Peripheral Aerobic Blood Culture - Final No growth in 5 days 11/21/17 21:35 Blood - Peripheral Anaerobic Blood Culture - Final No growth in 5 days Assessment and Plan - Assessment (1) PVD (peripheral vascular disease) Code(s): I73.9 - Peripheral vascular disease, unspecified Status: Acute (2) Abscess of groin, right Code(s): L02.214 - Cutaneous abscess of groin Status: Acute - Plan Right groin abscess/ suspect graft infection -Vascular surgery following. Patient is status post I&D of the right groin and wound VAC placement. Wound nurse following. Possibly d/c with [facility] on Monday if cleared by vascular. -ID consult appreciated. Continue vancomycin and Zosyn. -pain mgt with home meds RTC MS, scheduled Percocet and Dilaudid. He is a cancer patient and states he has been using narcotics chronically. Non-small cell lung cancer (recurrent) Patient states he has not undergone chemotherapy since his recurrence Recurrence occurred after 4 months of permission His oncologist is at [facility] Follow-up as outpatient once infection under control Continue home pain medication regimen of morphine, Percocet and Dilaudid Edema The pt complains of increasing LE edema. - d/c IVFs. - resume Lasix PO and monitor BMP. PPx: SCDs
--- NOTE | 2017-11-27 18:03 | P.PNWCN ---
Wound Care Nurse Consult Description: Received consult from ALLYSON Giang for wound VAC placement Communicated with: YASIR holbrook and Alisha Giang PC TECHNICIAN Recommendation: RN on floor to change wound VAC on Monday Wound/Pressure Injury - Patient Status Premedicated for Pain Prior to Dressing Change: Yes - Wound Right Anterior Groin Wound Assessment: Ongoing Wound Type: Abscess (Now open surgical wound) Is This a Chronic Wound: No Length: 6.3 (cm) Width: 2.8 (cm) Depth: 4.5 (~4.5cm) Wound Bed Appearance: Primrose, Red, White Wound Bed Appearance: Wound bed presents with ~70% dull red muscle tissue 20% red non granulation tissue and ~10% white tissue. Wound bed is moist Surrounding Tissue Appearance: Primrose (unremarkable periwound) Surrounding Tissue Temperature: Warm Drainage Description: Serosanguinous Drainage Amount: Copious Drainage Odor: No Odor Dressing Status: Changed Cleansing Solution: Saline Wound Packing Type: Woundvac Sponge Primary Dressing: Negative Pressure Wound Dressing Wound Dressing Change Date: 11/27/17 Wound Margin Description: Well defined, steep, and open Wound Vac - Wound Vac Right Anterior Groin Pressure Setting (mmHg): 125 Mode Setting: Continuous Drainage Description: Serosanguinous Foam type: Black - Additional Information Patient seen on for wound VAC dressing placement. Alisha VALADEZ for Vascular surgery saw patient and Wound VAC dressing with ezra was removed. [facility] applied moist to dry dressing and placed wound care consult order for wound VAC dressing placement. Removed moist to dry dressing in place to reveal wound to R groin. Wound descriptions and measurements are noted above. Wound was cleansed with normal saline and patted dry. Skin barrier film was applied to periwound. Kira's seal was applied in groin crease to seal VAC dressing. Window paned wound VAC with VAC drape.One piece of Black granufoam was applied in wound bed and covered with VAC drape. Small hole was cut in VAC dressing to expose granufoam. Applied one strip of black granufoam from wound bed bridged to anterior R thigh over VAC drape. Mushroom cap of black granufoam was applied to bridged granufoam with attached Sensi Trac pad over VAC drape. Wound VAC is suctioning at 125 mm/ Hg continuous low suction.
[2017-11-27] MEDS: traZODone 50 MG Tablet PO SCH (20:27)
[2017-11-28] MEDS: Vancomycin Inj 1,250 MG in Sodium Chlor 0.9% Inj 250 ML IV.SIG SCH ×2 (01:15→12:27)
[2017-11-28] MEDS: Piperacil/Tazo 3.375 GM Premix 50 ML IV.SIG SCH ×4 (03:10→22:16)
[2017-11-28] MEDS: oxyCODONE/Acetaminophen 10/325 Tablet PO SCH ×4 (03:51→22:16)
[2017-11-28 04:38] LABS: Calcium 8.4 mg/dL (8.5-10.1); Carbon Dioxide 28.7 meq/L (21.0-32.0); Potassium 3.8 meq/L (3.5-5.1)
[2017-11-28] MEDS: Morphine Sulfate 30 MG SR Tablet PO SCH ×3 (05:52→22:16)
[2017-11-28] MEDS: Furosemide 40 MG Tablet PO SCH ×2 (08:21→20:41)
[2017-11-28] MEDS: Gabapentin 300 MG Capsule PO SCH ×3 (08:21→17:35)
[2017-11-28] MEDS: Collagenase Oint 30 GM Tube TOPICAL SCH (08:22)
[2017-11-28] MEDS: Senna/Docusate Sodium 8.6/50 MG Tablet PO SCH (08:22)
--- NOTE | 2017-11-28 16:42 | P.PNIM ---
Subjective Interval history: The patient wanted to know how long it would take to have his wound healed. He said he might be interested in going to rehab prior to going home. He is looking forward to getting his cancer treatment started soon. Discussed with nursing at the bedside. Physical Exam Vital signs: Vital Signs 11/27/17 20:00 11/28/17 00:31 11/28/17 04:36 Temperature 98.2 F 97.7 F 97.7 F Pulse Rate 120 H 113 H 96 H Respiratory Rate 17 18 18 Blood Pressure 112/66 105/67 101/55 L Pulse Oximetry 96 96 94 L 11/28/17 08:00 11/28/17 12:00 Temperature 97.6 F 98.0 F Pulse Rate 107 H 100 H Respiratory Rate 19 17 Blood Pressure 136/79 119/67 Pulse Oximetry 99 95 Intake & Output 11/27/17 11/28/17 11/28/17 18:59 06:59 18:59 Intake Total 1560 / 1560 1142.5 / 1142.5 312.5 / 312.5 Balance 1560 / 1560 1142.5 / 1142.5 312.5 / 312.5 Weight 72.5 kg Intake: IV 600 / 600 362.5 / 362.5 312.5 / 312.5 Zosyn 3.375 GM Premix 50 ML @ 100 / 100 100 / 100 50 / 50 100 mls/hr IV.SIG Q6H ALANA Rx#: [id number] Vancomycin Inj 1,250 MG In NS 500 / 500 262.5 / 262.5 262.5 / 262.5 Inj 250 ML @ 250 mls/hr IV.SIG Q12H ALANA Rx#:[id number] Oral 960 / 960 780 / 780 Other: Mode Setting Left Groin Continuous Right Anterior Groin Continuous Right Groin Continuous # Voids 3 3 Date of Last Bowel Movement 11/26/17 Narrative: Gen.: No acute distress Cardiovascular: Regular rate and rhythm. No murmurs, rubs or gallops. Respiratory: Lungs clear to auscultation bilaterally. No wheezes or rhonchi. Abdomen: Soft, nontender, nondistended. No peritoneal signs. Musculoskeletal: No gross deformities. 2+ LE edema. Skin: Right groin has a wound VAC in place. Neuro: Sensory and motor grossly intact. Cranial nerves II through XII grossly intact. Results - Labs CBC & Chem 7: 11/25/17 04:30 11/28/17 04:00 Laboratory Results - last 24 hr 11/27/17 11/28/17 23:53 04:00 Sodium 141 Potassium 3.8 Chloride 107 Carbon Dioxide 28.7 Anion Gap 5 BUN 8 Creatinine 1.03 Estimated GFR 76 L Random Glucose 105 Calcium 8.4 L Vancomycin Trough 17.2 H Assessment and Plan - Assessment (1) PVD (peripheral vascular disease) Code(s): I73.9 - Peripheral vascular disease, unspecified Status: Acute (2) Abscess of groin, right Code(s): L02.214 - Cutaneous abscess of groin Status: Acute - Plan Right groin abscess/ suspect graft infection -Vascular surgery following. Patient is status post I&D of the right groin and wound VAC placement. Wound nurse following. Possibly d/c with [facility] on Monday if cleared by vascular. -ID consult appreciated. Continue vancomycin and Zosyn. -pain mgt with home meds RTC MS, scheduled Percocet and Dilaudid. He is a cancer patient and states he has been using narcotics chronically. -evaluating for possible SNF placement. district wildlife manager consult appreciated. Non-small cell lung cancer (recurrent) Patient states he has not undergone chemotherapy since his recurrence Recurrence occurred after 4 months of permission His oncologist is at [facility] Follow-up as outpatient once infection under control Continue home pain medication regimen of morphine, Percocet and Dilaudid. The pt does not want stool softeners. Edema The pt complains of increasing LE edema. - d/c IVFs. - resume Lasix PO and monitor BMP. Increase to BID. PPx: SCDs
[2017-11-28] MEDS: traZODone 50 MG Tablet PO SCH (20:41)
[2017-11-29] MEDS: Vancomycin Inj 1,250 MG in Sodium Chlor 0.9% Inj 250 ML IV.SIG SCH ×2 (00:55→12:05)
[2017-11-29] MEDS: Piperacil/Tazo 3.375 GM Premix 50 ML IV.SIG SCH ×2 (04:05→08:59)
[2017-11-29] MEDS: oxyCODONE/Acetaminophen 10/325 Tablet PO SCH ×4 (04:05→21:59)
[2017-11-29] MEDS: Morphine Sulfate 30 MG SR Tablet PO SCH ×3 (06:25→22:00)
--- NOTE | 2017-11-29 07:44 | P.DCO ---
- Physical Therapy Order: Evaluate and treat, Improve ambulation, Strength and gait training - Home Health Nursing Order: Medical education, Signs/symptoms of disease process, Wound care and dressing changes Instructions: WOUND vac placed to R groin 125 mmHG /continuous suction Change Wound vac every Monday and Monday Call our out patient clinic if Right groin wound has increased erythema, swelling, pain or odor ([phone]) - Case Management Consult Yes - Certification I have seen patient Gautam Edward on 11/29/17. My clinical findings support the need for the requested home health care services because: Pt will benefit with [facility] for optimal wound healing and surveillance Limited mobility due to disease progression I certify that my clinical findings support that this patient is homebound because:Pt will benefit with [facility] for optimal wound healing and surveillance Post-op weakness
[2017-11-29] MEDS: Furosemide 40 MG Tablet PO SCH ×2 (08:59→21:06)
[2017-11-29] MEDS: Gabapentin 300 MG Capsule PO SCH ×3 (08:59→17:11)
[2017-11-29] MEDS: Collagenase Oint 30 GM Tube TOPICAL SCH (09:02)
--- NOTE | 2017-11-29 09:24 | P.PNVS ---
Subjective Subjective/Hospital Course: Pt with stable LE edema no new pain ambulating well . Objective Vital Signs / I&O: Vital Signs 11/28/17 12:00 11/28/17 16:00 11/28/17 20:00 Temperature 98.0 F 97.5 F L Pulse Rate 100 H 101 H Respiratory Rate 17 20 20 Blood Pressure 119/67 142/89 H Pulse Oximetry 95 99 11/28/17 20:33 11/29/17 00:37 11/29/17 04:12 Temperature 98.5 F 97.8 F 98.1 F Pulse Rate 113 H 111 H 101 H Respiratory Rate 17 17 Blood Pressure 108/68 96/62 L 97/63 L Pulse Oximetry 97 97 96 11/29/17 08:00 Temperature 98.0 F Pulse Rate 105 H Respiratory Rate 19 Blood Pressure 98/58 L Pulse Oximetry 94 L Intake & Output 11/28/17 11/29/17 11/29/17 18:59 06:59 18:59 Intake Total 962.5 / 962.5 880 / 880 Output Total 425 / 425 Balance 537.5 / 537.5 880 / 880 Weight 72.5 kg Intake: IV 362.5 / 362.5 100 / 100 Zosyn 3.375 GM Premix 50 ML @ 100 / 100 100 / 100 100 mls/hr IV.SIG Q6H ALANA Rx#: [id number] Vancomycin Inj 1,250 MG In NS 262.5 / 262.5 Inj 250 ML @ 250 mls/hr IV.SIG Q12H ALANA Rx#:[id number] Oral 600 / 600 780 / 780 Output: Wound Vac Amount 425 / 425 Right Groin 425 / 425 Other: Mode Setting Right Groin Continuous Continuous # Voids 7 3 Date of Last Bowel Movement 11/28/17 # Bowel Movements 1 Physical Exam: R groin VAC changed - no incisional erythema + serous drainage only good granulation tissue and no exposed graft Assessment and Plan - Plan Continue IV antibiotics. ok to d/c home once IV antibiotics and home VAC are set up will f/u in vascular clinic in 1-2 weeks Discharge Planning: potentially Wed to home with [facility] RN vs rehab will arrange f/u in 1 week (12/06)
[2017-11-29] MEDS ORDERED: Pharmacy Ordered Lab Info OTHER ONE (11:45)
--- NOTE | 2017-11-29 13:54 | P.PNID ---
Subjective Remarks: doing OK dw Dr Hendrickson: wound looks better no fever last WBC went up to 3.4 co pain 10/08 Antibiotics: zosyn vanco Allergies/Adverse Reactions: Allergies cephalexin [From Keflex] Allergy (Verified 11/21/17 16:01) Anaphylaxis sulfamethoxazole [From Bactrim] Allergy (Verified 11/21/17 16:01) Anaphylaxis trimethoprim [From Bactrim] Allergy (Verified 11/21/17 16:01) Anaphylaxis Objective Vital Signs 11/28/17 16:00 11/28/17 20:00 11/28/17 20:33 Temperature 97.5 F L 98.5 F Pulse Rate 101 H 113 H Respiratory Rate 20 20 Blood Pressure 142/89 H 108/68 Pulse Oximetry 99 97 11/29/17 00:37 11/29/17 04:12 11/29/17 08:00 Temperature 97.8 F 98.1 F 98.0 F Pulse Rate 111 H 101 H 105 H Respiratory Rate 17 17 19 Blood Pressure 96/62 L 97/63 L 98/58 L Pulse Oximetry 97 96 94 L 11/29/17 12:00 Temperature 98.3 F Pulse Rate 116 H Respiratory Rate 18 Blood Pressure 105/69 Pulse Oximetry 97 Intake & Output 11/28/17 11/29/17 11/29/17 18:59 06:59 18:59 Intake Total 962.5 / 962.5 880 / 880 312.5 / 312.5 Output Total 425 / 425 Balance 537.5 / 537.5 880 / 880 312.5 / 312.5 Weight 72.5 kg Intake: IV 362.5 / 362.5 100 / 100 312.5 / 312.5 Zosyn 3.375 GM Premix 50 ML @ 100 / 100 100 / 100 50 / 50 100 mls/hr IV.SIG Q6H ALANA Rx#: [id number] Vancomycin Inj 1,250 MG In NS 262.5 / 262.5 262.5 / 262.5 Inj 250 ML @ 250 mls/hr IV.SIG Q12H ALANA Rx#:[id number] Oral 600 / 600 780 / 780 Output: Wound Vac Amount 425 / 425 Right Groin 425 / 425 Other: Mode Setting Right Groin Continuous Continuous Continuous # Voids 7 3 Date of Last Bowel Movement 11/28/17 # Bowel Movements 1 11/21/17 21:42 Blood - Peripheral Aerobic Blood Culture - Final No growth in 5 days 11/21/17 21:42 Blood - Peripheral Anaerobic Blood Culture - Final No growth in 5 days 11/21/17 21:35 Blood - Peripheral Aerobic Blood Culture - Final No growth in 5 days 11/21/17 21:35 Blood - Peripheral Anaerobic Blood Culture - Final No growth in 5 days Lab - Chemistry Results 11/28/17 04:00 Sodium 141 Potassium 3.8 Chloride 107 Carbon Dioxide 28.7 Anion Gap 5 BUN 8 Creatinine 1.03 Estimated GFR 76 L Random Glucose 105 Calcium 8.4 L Physical Exam: GENERAL: NAD SKIN: Warm and dry. HEAD: Atraumatic. Normocephalic. EYES: Pupils equal and round. No scleral icterus. No injection or drainage. ENT: No nasal bleeding or discharge. Mucous membranes pink and moist. NECK: Trachea midline. No JVD. CARDIOVASCULAR: Regular rate and rhythm. L groin wound is healing, no d/c dry R groin with VAC in place with seroang d/c tissues around VAC feel less indurated and less erythematous + tender to palpation RESPIRATORY: No accessory muscle use. Clear to auscultation. Breath sounds equal bilaterally. GASTROINTESTINAL: Abdomen soft, non-tender, nondistended. Hepatic and splenic margins not palpable. MUSCULOSKELETAL: Extremities without clubbing, cyanosis, or edema. No obvious deformities. NEUROLOGICAL: Awake and alert. No obvious cranial nerve deficits. Motor grossly within normal limits. Five out of 5 muscle strength in the arms and legs. Normal speech. PSYCHIATRIC: Appropriate mood and affect; insight and judgment normal. Assessment and Plan - Plan Infected synthetic graft sp aortobyfemoral bypass - sp I+D : - op report reviewed , about 80 mL of turbid fluid and devitalized tissue MRSA in wound clx Blood clx are negative cont vancomycin + Rifampin x 6 weeks will use PORT OPAT/ [facility] OK to dc after the above arranged if fails the prosthesis needs to be replaced and further terminal makeup operator abx to follow dc meet tang case [place]
--- NOTE | 2017-11-29 13:56 | P.DCO ---
Post Hospital Infusion Therapy Location of Infusion Therapy: Home Health Care IV Infusion Order Patient Weight: 72.5 kg - Diagnosis (1) Abscess of groin, right Code(s): L02.214 - Cutaneous abscess of groin - Administer Medication Vancomycin Dose: 1 gram IV Directions: q 12 hours Start Treatment: 11/29/17 Stop Treatment: 01/09/18 - Additional Information Venous Access: Implanted Port Additional Instructions: [x] Peripheral flush and dressing changes per protocol [x] Implanted port and central fisher troll line: * Implanted port: 10 ml Normal Saline followed by 5 ml Heparin 100 units/ml Heparin flush after each use and monthly to maintain. [] May leave port accessed during therapy. [] May leave peripheral site accessed for duration of therapy. [x] If patient has SOB or respiratory distress, check oxygen saturation. If less than 90% or clinical signs of respiratory distress, administer oxygen at 2 L/min. via nasal cannula and notify physician. [x] Anaphylaxis/Reaction orders: * Stop infusion. * Keep IV line open with saline flush. * Notify physician. * Monitor vital signs every 15 minutes until symptoms resolve. * Check Oxygen saturation; Oxygen at 2 L/min. via nasal cannula if less than 90% or clinical signs of respiratory distress. * Administer diphenhydramine (Benadryl) 25 mg IV STAT, (unless patient has received as pre-med). May repeat once, if necessary. * Solu-Cortef 250 mg IVP over 30-60 seconds, use 100 mg vials for each dissolution. * Epinephrine (1mg/1 ml) 0.3 mg subcutaneously or IVP now with any signs of respiratory distress. * Check with physician for new additional pre-med orders if patient is re- challenged or re-treated. [x] May remove PICC line when treatment complete, after confirming with Physician. [x] If the patient is admitted to the hospital, the ED, or transferred via [facility] , complete transfer form including medication reconciliation order sheet. Weekly Labs: CBC w/diff, CMP, SED Rate, Vancomycin Trough Allergies cephalexin [From Keflex] Allergy (Verified 11/21/17 16:01) Anaphylaxis sulfamethoxazole [From Bactrim] Allergy (Verified 11/21/17 16:01) Anaphylaxis trimethoprim [From Bactrim] Allergy (Verified 11/21/17 16:01) Anaphylaxis
--- NOTE | 2017-11-29 14:50 | P.PNIM ---
Subjective Interval history: The patient said that his cancer pain was a lot worse today. He was requesting IV pain medication. He was considering going to a nursing home facility. Normal bowel function and has been eating well. Discussed with nursing. Physical Exam Vital signs: Vital Signs 11/28/17 16:00 11/28/17 20:00 11/28/17 20:33 Temperature 97.5 F L 98.5 F Pulse Rate 101 H 113 H Respiratory Rate 20 20 Blood Pressure 142/89 H 108/68 Pulse Oximetry 99 97 11/29/17 00:37 11/29/17 04:12 11/29/17 08:00 Temperature 97.8 F 98.1 F 98.0 F Pulse Rate 111 H 101 H 105 H Respiratory Rate 17 17 19 Blood Pressure 96/62 L 97/63 L 98/58 L Pulse Oximetry 97 96 94 L 11/29/17 12:00 Temperature 98.3 F Pulse Rate 116 H Respiratory Rate 18 Blood Pressure 105/69 Pulse Oximetry 97 Intake & Output 11/28/17 11/29/17 11/29/17 18:59 06:59 18:59 Intake Total 962.5 / 962.5 880 / 880 575.0 / 575.0 Output Total 425 / 425 Balance 537.5 / 537.5 880 / 880 575.0 / 575.0 Weight 72.5 kg 72.5 kg Intake: IV 362.5 / 362.5 100 / 100 575.0 / 575.0 Zosyn 3.375 GM Premix 50 ML @ 100 / 100 100 / 100 50 / 50 100 mls/hr IV.SIG Q6H ALANA Rx#: [id number] Vancomycin Inj 1,250 MG In NS 262.5 / 262.5 262.5 / 262.5 Inj 250 ML @ 250 mls/hr IV.SIG Q12H ALANA Rx#:[id number] Oral 600 / 600 780 / 780 Output: Wound Vac Amount 425 / 425 Right Groin 425 / 425 Other: Mode Setting Right Groin Continuous Continuous Continuous # Voids 7 3 Date of Last Bowel Movement 11/28/17 # Bowel Movements 1 Narrative: Gen.: No acute distress Cardiovascular: Regular rate and rhythm. No murmurs, rubs or gallops. Respiratory: Lungs clear to auscultation bilaterally. No wheezes or rhonchi. Abdomen: Soft, nontender, nondistended. No peritoneal signs. Musculoskeletal: No gross deformities. 2+ LE edema. Skin: Right groin has a wound VAC in place. Neuro: Sensory and motor grossly intact. Cranial nerves II through XII grossly intact. Results - Labs CBC & Chem 7: 11/25/17 04:30 11/28/17 04:00 Laboratory Results - last 24 hr 11/29/17 12:08 Vancomycin Trough 19.0 H Microbiology 11/22/17 10:45 Tissue - Groin Acid Fast Bacilli Smear - Final No acid fast bacilli seen 11/22/17 10:45 Tissue - Groin Mycobacterial Culture - Preliminary No growth in 1 week 11/22/17 10:45 Tissue - Groin Fungal Smear - Final No fungal elements seen 11/22/17 10:45 Tissue - Groin Fungal Culture - Preliminary No growth in 1 week 11/22/17 10:45 Abscess - Groin Acid Fast Bacilli Smear - Final No acid fast bacilli seen 11/22/17 10:45 Abscess - Groin Mycobacterial Culture - Preliminary No growth in 1 week 11/22/17 10:45 Abscess - Groin Fungal Smear - Final No fungal elements seen 11/22/17 10:45 Abscess - Groin Fungal Culture - Preliminary No growth in 1 week Assessment and Plan - Assessment (1) PVD (peripheral vascular disease) Code(s): I73.9 - Peripheral vascular disease, unspecified Status: Acute (2) Abscess of groin, right Code(s): L02.214 - Cutaneous abscess of groin Status: Acute - Plan Right groin abscess/ suspect graft infection -Vascular surgery following. Patient is status post I&D of the right groin and wound VAC placement. Wound nurse following. Possibly d/c with [facility] on Monday if cleared by vascular. -ID consult appreciated. Continue antibiotics. -pain mgt with home meds RTC MS, scheduled Percocet and Dilaudid. Add IV morphine for breakthrough. -evaluating for possible SNF placement. med care manager consult appreciated. -consider palliative care consult if no improvement in pain. Non-small cell lung cancer (recurrent) Patient states he has not undergone chemotherapy since his recurrence Recurrence occurred after 4 months of permission His oncologist is at [facility] Follow-up as outpatient once infection under control Continue home pain medication regimen of morphine, Percocet and Dilaudid. The pt does not want stool softeners. Edema The pt complains of increasing LE edema. - d/c IVFs. - resume Lasix PO and monitor BMP. Increased to BID. PPx: SCDs, heparin
[2017-11-29] MEDS: Morphine Inj 4 MG/ML Vial IV.PUSH PRN ×2 (15:36→19:49)
[2017-11-29] MEDS: Heparin - SQ 10,000 UNITS/ML Vial SQ SCH (21:06)
[2017-11-29] MEDS: traZODone 50 MG Tablet PO SCH (21:06)
[2017-11-30] MEDS: Morphine Inj 4 MG/ML Vial IV.PUSH PRN ×3 (00:02→19:51)
[2017-11-30] MEDS: oxyCODONE/Acetaminophen 10/325 Tablet PO SCH ×4 (04:09→21:57)
[2017-11-30] MEDS: Heparin - SQ 10,000 UNITS/ML Vial SQ SCH ×2 (05:07→13:40)
[2017-11-30 05:58] LABS: Hematocrit 33.3 % (39.0-51.0); Hemoglobin 11.3 gm/dL (13.0-17.0); Mean Corpuscular HGB Conc 34.1 % (32.0-36.0); Mean Corpuscular Hemoglobin 31.1 pg (27.0-34.0); Mean Corpuscular Volume 91.3 fL (80.0-100.0); Mean Platelet Volume 9.4 fL (7.0-11.0); Platelet Count 121 th/mm3 (150-450); Red Blood Count 3.65 mil/mm3 (4.50-5.90); Red Cell Distribution Width 14.3 % (11.6-17.2); White Blood Count 7.4 th/mm3 (4.0-11.0)
[2017-11-30 06:26] LABS: Calcium 8.8 mg/dL (8.5-10.1); Potassium 3.7 meq/L (3.5-5.1)
[2017-11-30 06:27] LABS: Vancomycin,Random 14.9 Comment
[2017-11-30] MEDS: Morphine Sulfate 30 MG SR Tablet PO SCH ×3 (06:31→21:57)
[2017-11-30] MEDS: Gabapentin 300 MG Capsule PO SCH ×3 (08:12→17:10)
[2017-11-30] MEDS: Furosemide 40 MG Tablet PO SCH ×2 (08:13→21:57)
[2017-11-30] MEDS: Collagenase Oint 30 GM Tube TOPICAL SCH (08:14)
--- NOTE | 2017-11-30 11:03 | P.PNIM ---
Subjective Interval history: The patient was sitting in the chair. He said the morphine was helping for his pain. He said that the wound VAC was draining a lot. He said that he had a rough night but he was able to get some sleep. Physical Exam Vital signs: Vital Signs 11/29/17 12:00 11/29/17 16:00 11/29/17 20:00 Temperature 98.3 F 98.3 F 98.4 F Pulse Rate 116 H 120 H 120 H Respiratory Rate 18 17 20 Blood Pressure 105/69 138/86 127/84 Pulse Oximetry 97 99 96 11/30/17 00:00 11/30/17 04:00 11/30/17 08:00 Temperature 97.9 F 97.7 F 97.9 F Pulse Rate 128 H 114 H 112 H Respiratory Rate 20 20 19 Blood Pressure 124/86 100/70 109/69 Pulse Oximetry 95 95 100 Intake & Output 11/29/17 11/30/17 11/30/17 18:59 06:59 18:59 Intake Total 1275.0 / 1275.0 1000 / 1000 Output Total 500 / 500 250 / 250 Balance 775.0 / 775.0 -250 / -250 1000 / 1000 Weight 72.5 kg Intake: IV 575.0 / 575.0 1000 / 1000 Zosyn 3.375 GM Premix 50 ML @ 50 / 50 100 mls/hr IV.SIG Q6H ALANA Rx#: [id number] Vancomycin Inj 1,250 MG In NS 262.5 / 262.5 Inj 250 ML @ 250 mls/hr IV.SIG Q12H ALANA Rx#:[id number] Oral 700 / 700 Output: Wound Drainage 250 / 250 Right Groin 250 / 250 Wound Vac Amount 500 / 500 Right Groin 500 / 500 Other: Mode Setting Right Groin Continuous Continuous Continuous # Voids 8 2 Date of Last Bowel Movement 11/28/17 11/29/17 # Bowel Movements 1 2 Narrative: Gen.: No acute distress Cardiovascular: Regular rate and rhythm. No murmurs, rubs or gallops. Respiratory: Lungs clear to auscultation bilaterally. No wheezes or rhonchi. Abdomen: Soft, nontender, nondistended. No peritoneal signs. Musculoskeletal: No gross deformities. 2+ LE edema, slightly worse on left. Skin: Right groin has a wound VAC in place. Neuro: Sensory and motor grossly intact. Cranial nerves II through XII grossly intact. Results - Labs CBC & Chem 7: 11/30/17 05:35 11/30/17 05:35 Laboratory Results - last 24 hr 11/29/17 11/30/17 11/30/17 12:08 05:35 05:35 WBC 7.4 RBC 3.65 L Hgb 11.3 L Hct 33.3 L MCV 91.3 MCH 31.1 MCHC 34.1 RDW 14.3 Plt Count 121 L D MPV 9.4 Sodium 140 Potassium 3.7 Chloride 103 Carbon Dioxide 29.0 Anion Gap 8 BUN 9 Creatinine 1.08 Estimated GFR 72 L Random Glucose 102 Calcium 8.8 Vancomycin Trough 19.0 H Random Vancomycin 14.9 Microbiology 11/22/17 10:45 Tissue - Groin Acid Fast Bacilli Smear - Final No acid fast bacilli seen 11/22/17 10:45 Tissue - Groin Mycobacterial Culture - Preliminary No growth in 1 week 11/22/17 10:45 Tissue - Groin Fungal Smear - Final No fungal elements seen 11/22/17 10:45 Tissue - Groin Fungal Culture - Preliminary No growth in 1 week 11/22/17 10:45 Abscess - Groin Acid Fast Bacilli Smear - Final No acid fast bacilli seen 11/22/17 10:45 Abscess - Groin Mycobacterial Culture - Preliminary No growth in 1 week 11/22/17 10:45 Abscess - Groin Fungal Smear - Final No fungal elements seen 11/22/17 10:45 Abscess - Groin Fungal Culture - Preliminary No growth in 1 week Assessment and Plan - Assessment (1) PVD (peripheral vascular disease) Code(s): I73.9 - Peripheral vascular disease, unspecified Status: Acute (2) Abscess of groin, right Code(s): L02.214 - Cutaneous abscess of groin Status: Acute - Plan Right groin abscess/ suspect graft infection -Vascular surgery following. Patient is status post I&D of the right groin and wound VAC placement. Wound nurse following. Possibly d/c with [facility] on Monday if cleared by vascular. -ID consult appreciated. Continue antibiotics. -pain mgt with home meds RTC MS, scheduled Percocet and Dilaudid. Add IV morphine for breakthrough. -evaluating for possible SNF placement. manager product management consult appreciated. Non-small cell lung cancer (recurrent) Patient states he has not undergone chemotherapy since his recurrence. Recurrence occurred after 4 months of remission. His oncologist is at [facility]. -Follow-up as outpatient once infection under control -Continue home pain medication regimen of morphine, Percocet and Dilaudid. The pt does not want stool softeners. Edema The pt complains of increasing LE edema. Has tenderness in the calves. -d/c IVFs. -resume Lasix PO and monitor BMP. Increased to BID. -LE US pending. PPx: SCDs, heparin
--- NOTE | 2017-11-30 13:58 | US ---
EXAM DATE: 11/30/2017 1:54 PM EDT AGE/SEX: 51 years / Male INDICATIONS: Bilateral leg edema. CLINICAL DATA: This is the patient's initial encounter. Patient reports that signs and symptoms have been present for 1 week and indicates a pain score of 7/10. MEDICAL/SURGICAL HISTORY: Hepatitis C. Celiac Disease. Hyperlipidemia. Small cell lung cancer. Right groin/graft infection. . Neck surgery. Corneal surgery. Back surgery. Axillobifemoral bypass. COMPARISON: No prior exams available for comparison. TECHNIQUE: Venous ultrasound of both lower extremities was performed from the inguinal ligament to t he proximal calf. Real-time, color Doppler and spectral tracing, compression and augmentation techni ques were used. FINDINGS: Right Leg: There is partially occlusive thrombus in the right posterior tibial vein. Remaining relat ively deep venous system demonstrates normal compression without echogenic clot. Left Leg: Normal compression of the deep venous system from the inguinal region to the proximal calf . No echogenic clot is seen. Normal response of the venous system to augmentation and respiration. Other: None. CONCLUSION: 1. 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 2. No sonographic evidence for left lower extremity DVT. Electronically signed by: Steven Jain MD 11/30/2017 1:57 PM EDT
[2017-11-30] MEDS: Vancomycin Inj 1,000 MG in Sodium Chlor 0.9% Inj 250 ML IV.SIG SCH (14:27)
[2017-11-30 16:18] LABS: Hemoglobin 11.5 gm/dL (13.0-17.0); Mean Corpuscular HGB Conc 33.7 % (32.0-36.0); Mean Corpuscular Hemoglobin 31.1 pg (27.0-34.0); Mean Corpuscular Volume 92.4 fL (80.0-100.0); Mean Platelet Volume 9.4 fL (7.0-11.0); Platelet Count 120 th/mm3 (150-450); Red Blood Count 3.68 mil/mm3 (4.50-5.90); Red Cell Distribution Width 14.5 % (11.6-17.2)
[2017-11-30 16:27] LABS: INR 1.2 Ratio
[2017-11-30] MEDS: Heparin Drip 25,000 UNIT/250 ML BAG IV.CONT PRN (17:12)
[2017-11-30] MEDS: traZODone 50 MG Tablet PO SCH (21:57)
[2017-12-01] MEDS: Morphine Inj 4 MG/ML Vial IV.PUSH PRN ×3 (01:57→15:02)
[2017-12-01] MEDS: Vancomycin Inj 1,000 MG in Sodium Chlor 0.9% Inj 250 ML IV.SIG SCH ×2 (02:54→14:01)
[2017-12-01] MEDS: oxyCODONE/Acetaminophen 10/325 Tablet PO SCH ×4 (04:23→22:03)
[2017-12-01 04:52] LABS: Hematocrit 30.7 % (39.0-51.0); Hemoglobin 10.4 gm/dL (13.0-17.0); Mean Corpuscular HGB Conc 33.8 % (32.0-36.0); Mean Corpuscular Volume 91.6 fL (80.0-100.0); Platelet Count 93 th/mm3 (150-450); Red Blood Count 3.35 mil/mm3 (4.50-5.90); Red Cell Distribution Width 14.4 % (11.6-17.2); White Blood Count 4.9 th/mm3 (4.0-11.0)
[2017-12-01] MEDS: Morphine Sulfate 30 MG SR Tablet PO SCH ×3 (05:59→21:55)
--- NOTE | 2017-12-01 08:28 | P.CON ---
History of Present Illness Service: Hematology/Oncology Consult date: 12/01/17 Requesting Physician: Jimi Torres Reason for Consult: Right leg DVT, Lung cancer. Primary Care Provider: PROVIDER NON STAFF Chief Complaint: Infection in the Right Groin and leg swelling. History of Present Illness: Mr. Edward is a very pleasant 51-year-old man, he is originally from [place] and moved down to [place] about a year ago. Patient was diagnosed with metastatic lung carcinoma in June 2016 while he was still living in [place]. He was initiated on palliative first-line immunotherapy with Keytruda while still in [place]. After relocating to [place] he continued Keytruda and tells me he received a total of 11 doses. About 4 months ago Keytruda had to be discontinued because he developed severe colitis and his primary oncologist Dr. Abel recommended discontinuing therapy and monitoring him. The patient at that time was noted to be in remission. The patient suspects his disease may be recurring and Dr. Abel had recommended resumption of systemic therapy however the patient had required management of peripheral arterial disease with arterial bypass graft surgery, this was performed in September 2017. Unfortunately patient developed an MRSA infection involving the right groin, he required incision and drainage performed in October 2017 and has been in the hospital with a wound VAC receiving IV antibiotics for the past 2 weeks or so. He developed lower extremity edema, and ultrasound Doppler was performed which revealed a thrombosis involving the right lower extremity distal to the knee. He has been initiated on therapeutic dose anticoagulation with heparin IV. The oncology/hematology service is been asked to see him to help make recommendations on management of anticoagulation. Review of Systems Constitutional: Reports weight loss, Denies anorexia, Denies body ache(s), Denies chills, Denies weakness Eyes: Denies blind spots, Denies blurry vision Ears, Nose, Mouth, and Throat: Denies abnormal hearing, Denies bleeding gums Cardiovascular: Denies chest pain, Denies chest pain at rest, Denies shortness of breath with activity, Denies shortness of breath causing sudden awakening Respiratory: Denies change in phlegm color, Denies cough, Denies coughing up blood Gastrointestinal: Reports abdominal pain (The left upper quadrant.), Denies bloating, Denies bright, red blood in stools, Denies change in bowel habits, Denies loose stools, Denies vomiting Genitourinary: Denies blood in urine Musculoskeletal: Reports abnormal walking (Because of wound VAC in place.) Skin/Breast: Reports wounds (Involving the right groin.) Neurologic: Denies abnormal hearing Psychiatric: Reports anxiety, Denies abnormal sleep pattern Endocrine: Denies cold intolerance, Denies excessive sweating Hematologic/Lymphatic: Denies easy bleeding Allergic/Immunologic: Reports GI upset with certain foods (He thinks he may have some celiac disease related to immunotherapy colitis.) [facility] - History History Provided By: Patient - Medical History Medical History: Medical History (Last Updated 12/01/17 @ 08:22 by Warren Quiles MD) Hepatitis C High cholesterol Infection of skin due to methicillin resistant Staphylococcus aureus (MRSA) Peripheral arterial disease CD (celiac disease) Lung cancer - Surgical History Surgical History: Surgical History (Last Reviewed 11/22/17 @ 06:57 by Padmini Arambula) History of eye surgery H/O neck surgery Previous back surgery S/P femoral-femoral bypass surgery - Family History Family History: Family History (Last Reviewed 11/22/17 @ 06:57 by Padmini Arambula) Other No family history of cardiac disease - Tobacco History Second Hand Smoke Exposure: No Tobacco Use In Past 30 Days: No Smoking Status: Former smoker Tobacco Type: Cigarettes - Alcohol History How Often Do You Have a Drink Containing Alcohol: Never - Substance Use History Substance History: Past History - Travel History Recent Travel in the [place] Within the Last 8 Weeks: No Recent Travel Out of the Country Within the Last 8 Weeks: No - Immunization History Tetanus Immunization: Unsure Hx Influenza Vaccine This Season: Yes Medications and Allergies Active Medications: Active Medications Acetaminophen (Tylenol) 650 mg PO Q4H PRN PRN Reason: Temp > 100.4 Atorvastatin Calcium (Lipitor) 40 mg PO HS [facility] Last Admin: 11/30/17 21:57 Dose: 40 mg Collagenase (Santyl Oint) 1 applicatio TOPICAL DAILY [facility] Last Admin: 11/30/17 08:14 Dose: 1 applicatio Furosemide (Lasix) 40 mg PO BID [facility] Last Admin: 11/30/17 21:57 Dose: 40 mg Gabapentin (Neurontin) 600 mg PO TID [facility] Last Admin: 11/30/17 17:10 Dose: 600 mg Hydromorphone HCl (Dilaudid) 2 mg PO Q4H [facility] Last Admin: 12/01/17 05:59 Dose: 2 mg Pharmacy Profile Note (Vancomycin Consult Pharmacy) 0 mls @ 0 mls/hr OTHER UNSCH [facility] Vancomycin HCl 1,000 mg/ (Sodium Chloride) 250 mls @ 250 mls/hr IV.SIG Q12H [facility] Last Infusion: 12/01/17 03:54 Dose: Infused Heparin Sodium/Dextrose (Heparin/D5w 25,000 U/250 Ml) 25,000 unit in 250 mls @ 13 mls/hr IV.CONT TITRATE PRN; Protocol PRN Reason: Per Protocol Last Titration: 12/01/17 04:22 Dose: 1,000 units/hr, 10 mls/hr Miscellaneous Information ([facility] Ordered Lab Info) 0 each OTHER ONCE ONE Stop: 12/02/17 02:46 Morphine Sulfate (Oramorph Sr) 90 mg PO Q8HR [facility] Last Admin: 12/01/17 05:59 Dose: 90 mg Morphine Sulfate (Morphine Inj) 4 mg IV.PUSH Q4H PRN PRN Reason: BREAKTHROUGH PAIN Last Admin: 12/01/17 01:57 Dose: 4 mg Ondansetron HCl (Zofran Odt) 4 mg PO Q6H PRN PRN Reason: NAUSEA OR VOMITING Oxycodone/Acetaminophen (Percocet 10/325 Mg) 1 tab PO Q6H [facility] Last Admin: 12/01/17 04:23 Dose: 1 tab Pantoprazole Sodium (Protonix) 40 mg PO DAILY [facility] Last Admin: 11/30/17 08:13 Dose: 40 mg Potassium Chloride (K-Dur) 20 meq PO BID [facility] Last Admin: 11/30/17 21:58 Dose: 20 meq Rifampin (Rifampin) 300 mg PO Q12HR [facility] Last Admin: 11/30/17 21:57 Dose: 300 mg Trazodone HCl (Desyrel) 50 mg PO HS [facility] Last Admin: 11/30/17 21:57 Dose: 50 mg Allergies Allergy/AdvReac Type Severity Reaction Status Date / Time cephalexin [From Keflex] Allergy Anaphylaxis Verified 11/21/17 16:01 sulfamethoxazole Allergy Anaphylaxis Verified 11/21/17 16:01 [From Bactrim] trimethoprim [From Bactrim] Allergy Anaphylaxis Verified 11/21/17 16:01 Home Medications Medication Instructions Recorded Confirmed Type aspirin 325 mg PO DAILY 10/28/17 11/22/17 History furosemide 40 mg PO DAILY 10/28/17 11/22/17 History gabapentin 600 mg PO TID 10/28/17 11/22/17 History hydromorphone 2 mg PO Q4H PRN 10/28/17 11/22/17 History morphine 90 mg PO Q8H 10/28/17 11/22/17 History oxycodone-acetaminophen [Percocet] 1 tab PO Q4H PRN 10/28/17 11/22/17 History trazodone 50 mg PO HS 10/28/17 11/22/17 History pantoprazole [Protonix] 40 mg PO DAILY 11/21/17 11/22/17 History Physical Exam Vital signs: Vital Signs 11/30/17 12:00 11/30/17 16:00 11/30/17 20:00 Temperature 98.0 F 98.1 F 98 F Pulse Rate 123 H 120 H 117 H Respiratory Rate 19 19 18 Blood Pressure 105/65 131/88 115/67 Pulse Oximetry 97 94 L 98 12/01/17 00:00 Temperature 98.5 F Pulse Rate 124 H Respiratory Rate 17 Blood Pressure 125/70 Pulse Oximetry 98 Intake & Output 11/30/17 12/01/17 12/01/17 18:59 06:59 18:59 Intake Total 2410 / 2410 730 / 730 Output Total 825 / 825 500 / 500 Balance 1585 / 1585 230 / 230 Intake: IV 1250 / 1250 250 / 250 Vancomycin Inj 1,000 MG In NS 250 / 250 250 / 250 Inj 250 ML @ 250 mls/hr IV.SIG Q12H [facility] Rx#:[id number] Oral 1160 / 1160 480 / 480 Output: Wound Vac Amount 825 / 825 500 / 500 Right Groin 825 / 825 500 / 500 Other: Post Void Residual 8 Mode Setting Right Groin Continuous Continuous # Voids 2 Date of Last Bowel Movement 11/29/17 # Bowel Movements 2 1 - Constitutional no acute distress Comments: Middle-aged male, sitting up on a bedside chair. No acute distress, pleasant disposition. He is tall and thin appearing but not cachectic. - Routine HEENT Exam Head: Present: normocephalic. Absent: atraumatic, cushingoid faces Eye: Present: EOMI, PERRL ENT: Present: mucous membranes moist - Routine Neck Exam Present: supple. Absent: full ROM, JVD, carotid bruit, lymphadenopathy - Routine Respiratory Exam Present: CTA bilaterally, prolonged expiratory phase. Absent: accessory muscle use, rales, respiratory distress, rhonchi - Routine Cardiovascular Exam Present: RRR, S1, S2 - Routine Abdominal Exam Present: soft. Absent: normoactive bowel sounds, tenderness - Routine Exam Comments: Right groin examined, wound VAC in place, no erythema of the skin that is visible. Some tenderness. - Routine Extremities Exam Present: edema. Absent: cyanosis Comments: Bilateral lower extremity edema, no calf tenderness. - Routine Neurological Exam Present: alert, oriented X3, CN II-XII intact. Absent: sensory deficit, motor deficit - Detailed Neurological Exam: Coma Scale Eye Opening: Spontaneous - Routine Psychiatric Exam Present: normal affect Assessment and Plan - Plan Mr. Edward is a very pleasant 51-year-old man with a diagnosis of metastatic non-small cell lung carcinoma, diagnosed initially in June 2016. He had received approximately 1 year of first-line palliative immunotherapy with Keytruda, he remained on this treatment up until about 4 months ago. He had a come off of treatment due to colitis related to Keytruda. At the time he was noted to be in what the patient describes as remission. Over the past month and a half the patient had worsening peripheral arterial disease, he required bypass graft surgery which was performed in mid to late September. Unfortunately developed infection in the right groin secondary to MRSA requiring incision and drainage and wound VAC. He is presently on an type biotic therapy. Treatment for lung cancer remains on hold until his systemic infection is resolved and his wounds have healed. The patient developed a partially occlusive right lower extremity distal deep venous thrombosis during this hospitalization and has been initiated appropriately on heparin infusion. His PTT levels are therapeutic. The oncology/hematology service is been asked to see him to make recommendations regarding anticoagulation. The patient is already established with Dr. Cas Abel of the [place] [facility] for management of his metastatic non-small cell lung cancer. Recommendations: 1. Right lower extremity deep venous thrombosis: I would recommend therapeutic anticoagulation to continue. Should the patient no longer require surgical intervention such as wound debridement it would be reasonable to transition him from heparin infusion to therapeutic dose Lovenox. Given the patient's normal renal function he may be dosed at 1 mg/kg every 12 hours. 2. Metastatic lung carcinoma: He had been on palliative treatment up until he developed Keytruda (immunotherapy) associated colitis. He has not been on disease directed therapy in about 4 months. His disease is likely progressing as evidenced by progressive left upper quadrant abdominal pain. At this time I would recommend no specific lung cancer directed interventions other than pain control. He would be best served with restaging studies just prior to resuming systemic therapy under the care of Dr. Abel. Hematology service will follow at a distance. If there are additional specific questions please do not hesitate to call the office at [phone].
[2017-12-01] MEDS: Gabapentin 300 MG Capsule PO SCH ×3 (08:52→18:06)
[2017-12-01] MEDS: Furosemide 40 MG Tablet PO SCH ×2 (08:52→20:30)
[2017-12-01] MEDS: Collagenase Oint 30 GM Tube TOPICAL SCH (14:01)
--- NOTE | 2017-12-01 17:57 | P.PNIM ---
Subjective Interval history: The patient said that he was still having significant drainage from the wound VAC. He still has significant pain, especially with dressing changes. She is requesting additional pain medication with the dressing changes. Discussed with nursing. Physical Exam Vital signs: Vital Signs 11/30/17 20:00 12/01/17 00:00 12/01/17 08:00 Temperature 98 F 98.5 F 97.9 F Pulse Rate 117 H 124 H 118 H Respiratory Rate 18 17 19 Blood Pressure 115/67 125/70 105/63 Pulse Oximetry 98 98 97 12/01/17 12:00 Temperature 98.4 F Pulse Rate 62 Respiratory Rate 20 Blood Pressure 138/71 Pulse Oximetry 95 Intake & Output 11/30/17 12/01/17 12/01/17 18:59 06:59 18:59 Intake Total 2410 / 2410 730 / 730 Output Total 825 / 825 500 / 500 500 / 500 Balance 1585 / 1585 230 / 230 -500 / -500 Intake: IV 1250 / 1250 250 / 250 Vancomycin Inj 1,000 MG In NS 250 / 250 250 / 250 Inj 250 ML @ 250 mls/hr IV.SIG Q12H [facility] Rx#:[id number] Oral 1160 / 1160 480 / 480 Output: Wound Drainage 500 / 500 Right Groin 500 / 500 Wound Vac Amount 825 / 825 500 / 500 Right Groin 825 / 825 500 / 500 Other: Post Void Residual 8 Mode Setting Right Groin Continuous Continuous Continuous # Voids 2 Date of Last Bowel Movement 11/29/17 # Bowel Movements 2 1 Narrative: Gen.: No acute distress. HEENT: NC, AT. Cardiovascular: Regular rate and rhythm. No murmurs, rubs or gallops. Respiratory: Lungs clear to auscultation bilaterally. No wheezes or rhonchi. Abdomen: Soft, nontender, nondistended. No peritoneal signs. Musculoskeletal: No gross deformities. 2+ LE edema, slightly worse on left. Skin: Right groin has a wound VAC in place. Neuro: Sensory and motor grossly intact. Cranial nerves II through XII grossly intact. Results - Labs CBC & Chem 7: 12/01/17 04:35 11/30/17 05:35 Laboratory Results - last 24 hr 12/01/17 12/01/17 12/01/17 02:00 04:35 04:36 WBC 4.9 RBC 3.35 L Hgb 10.4 L Hct 30.7 L MCV 91.6 MCH 31.0 MCHC 33.8 RDW 14.4 Plt Count 93 L MPV 9.0 APTT 96.3 H* D 57.6 H D 12/01/17 12:20 WBC RBC Hgb Hct MCV MCH MCHC RDW Plt Count MPV APTT 58.4 H Microbiology 12/01/17 06:05 Stool Stool Occult Blood (GILDA) - Final Hemoccult negative - Imaging Impressions Venous Doppler Study 11/30/17 00:00 CONCLUSION: 1. 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 2. No sonographic evidence for left lower extremity DVT. Assessment and Plan - Assessment (1) PVD (peripheral vascular disease) Code(s): I73.9 - Peripheral vascular disease, unspecified Status: Acute (2) Abscess of groin, right Code(s): L02.214 - Cutaneous abscess of groin Status: Acute - Plan Right groin abscess/ suspect graft infection -Vascular surgery following. Patient is status post I&D of the right groin and wound VAC placement. Wound nurse following. Possibly d/c with [facility] on Monday if cleared by vascular. -ID consult appreciated. Continue antibiotics. -pain mgt with home meds RTC MS, scheduled Percocet and Dilaudid. Add IV morphine for breakthrough. -evaluating for possible SNF placement. education and training manager consult appreciated. Non-small cell lung cancer (recurrent) Patient states he has not undergone chemotherapy since his recurrence. Recurrence occurred after 4 months of remission. His oncologist is at [facility]. -Follow-up as outpatient once infection under control. -Continue home pain medication regimen of morphine, Percocet and Dilaudid. The pt does not want stool softeners. Edema/ DVT The pt complains of increasing LE edema. Has tenderness in the calves. US showed DVT on the right. He was started on a heparin gtt. -resume Lasix PO and monitor BMP. Increased to BID. -continue heparin gtt. Consider switching to Lovenox upon. Appreciate hematology input. PPx: SCDs, heparin Discharge Planning: The pt is considering home with home health care vs SNF. He would like the wound vac output to have decreased output before going home. Hematology following. Pain control has been an issue.
[2017-12-01] MEDS: traZODone 50 MG Tablet PO SCH (20:30)
[2017-12-01] MEDS ORDERED: Heparin 10,000 UNITS/10 ML Vial (for IV use) IV.PUSH ONE (23:15)
[2017-12-02] MEDS ORDERED: Pharmacy Ordered Lab Info OTHER ONE (02:45)
[2017-12-02] MEDS: Vancomycin Inj 1,000 MG in Sodium Chlor 0.9% Inj 250 ML IV.SIG SCH ×2 (02:56→16:00)
[2017-12-02] MEDS: Morphine Inj 4 MG/ML Vial IV.PUSH PRN ×2 (03:02→12:20)
[2017-12-02 03:25] LABS: Hematocrit 30.8 % (39.0-51.0); Hemoglobin 10.5 gm/dL (13.0-17.0); Mean Corpuscular HGB Conc 34.1 % (32.0-36.0); Mean Corpuscular Hemoglobin 31.1 pg (27.0-34.0); Mean Corpuscular Volume 91.1 fL (80.0-100.0); Mean Platelet Volume 9.7 fL (7.0-11.0); Platelet Count 91 th/mm3 (150-450); Red Blood Count 3.38 mil/mm3 (4.50-5.90); Red Cell Distribution Width 14.7 % (11.6-17.2)
[2017-12-02 03:40] LABS: Vancomycin,Trough 14.9 mcg/mL (5.0-10.0)
[2017-12-02] MEDS: oxyCODONE/Acetaminophen 10/325 Tablet PO SCH ×4 (04:37→21:00)
[2017-12-02] MEDS: Morphine Sulfate 30 MG SR Tablet PO SCH ×3 (05:32→20:59)
[2017-12-02] MEDS: Gabapentin 300 MG Capsule PO SCH ×3 (09:07→17:14)
[2017-12-02] MEDS: Furosemide 40 MG Tablet PO SCH ×2 (09:07→21:00)
[2017-12-02] MEDS: Collagenase Oint 30 GM Tube TOPICAL SCH (09:09)
--- NOTE | 2017-12-02 13:19 | P.PN ---
Subjective Interval history: Pt seen and examined for f/u of R groin graft infection and RLE DVT. Pt reports he is anxious to go home. He is now stating that he doesn't plan on staying in [place] long after discharge. When I informed him that his IV antibiotics would be administered until 01/09 with [facility], he stated he will not wait that long and he plans on moving to [place] when his sister leaves by the end of this month. He is aware of the DVT in his leg and the need for anticoagulation. Options were discussed with the patient and it was decided to bridge to Coumadin with Lovenox. He understands of the need for periodic INR monitoring. His PCP is Dr. Valdez, but again, his decision to not stay in [place] more than a month is problematic with the need for follow-up. His oncologist to follow his lung cancer is also local and I am not sure the patient thought this through on how he would resume his care while wanting to leave for [place] on a whim. He states he is otherwise stable. Denies CP, SOB, abdominal pain, N/V. He is ambulating without issues. Physical Exam Vital signs: Vital Signs 12/01/17 19:00 12/01/17 20:00 12/01/17 22:25 Temperature 98.3 F Pulse Rate 125 H Respiratory Rate 20 17 18 Blood Pressure 141/84 H Pulse Oximetry 100 12/02/17 00:00 12/02/17 03:05 12/02/17 05:05 Temperature 98 F Pulse Rate 120 H Respiratory Rate 17 20 20 Blood Pressure 135/72 Pulse Oximetry 100 12/02/17 08:00 12/02/17 12:00 Temperature 98.1 F 97.7 F Pulse Rate 113 H 113 H Respiratory Rate 17 17 Blood Pressure 106/63 97/62 L Pulse Oximetry 98 100 Intake & Output 12/01/17 12/02/17 12/02/17 18:59 06:59 18:59 Intake Total 1050 / 1050 730 / 730 Output Total 500 / 500 Balance 550 / 550 730 / 730 Intake: IV 250 / 250 250 / 250 Vancomycin Inj 1,000 MG In NS 250 / 250 250 / 250 Inj 250 ML @ 250 mls/hr IV.SIG Q12H [facility] Rx#:[id number] Oral 800 / 800 480 / 480 Output: Wound Drainage 500 / 500 Right Groin 500 / 500 Other: Mode Setting Right Groin Continuous Continuous # Voids 6 2 Date of Last Bowel Movement 11/29/17 Narrative: GENERAL: WN, WD male sitting up in chair in NAD. SKIN: Warm and dry. HEART: RRR no m/r/g. LUNGS: CTAB without wheezes or crackles. ABDOMEN: +BS, soft, NT, ND. EXTREMITIES: Wound vac over R groin. RLE with some erythema, swelling, and firmness of the calf. NEURO: Awake and alert. PSYCH: Appropriate mood and affect. Results - Labs CBC & Chem 7: 12/02/17 02:35 12/02/17 02:35 Laboratory Results - last 24 hr 12/01/17 12/02/17 12/02/17 20:28 02:35 02:35 WBC 5.0 RBC 3.38 L Hgb 10.5 L Hct 30.8 L MCV 91.1 MCH 31.1 MCHC 34.1 RDW 14.7 Plt Count 91 L MPV 9.7 APTT 35.9 H D Creatinine 1.13 Estimated GFR 68 L Total Creatine Kinase Cancelled Vancomycin Trough 14.9 H 12/02/17 12/02/17 04:40 10:40 WBC RBC Hgb Hct MCV MCH MCHC RDW Plt Count MPV APTT 68.1 H D 123.5 H* D Creatinine Estimated GFR Total Creatine Kinase Vancomycin Trough Assessment and Plan - Assessment (1) PVD (peripheral vascular disease) Code(s): I73.9 - Peripheral vascular disease, unspecified Status: Acute (2) Abscess of groin, right Code(s): L02.214 - Cutaneous abscess of groin Status: Acute - Plan 51 year old male with recurrent NSCLC, PVD, and celiac disease admitted 11/21 for R groin abscess one month postop from aortofemoral bypass. 1. Right groin abscess/infected graft s/p aortofemoral bypass - Wound culture growing MRSA - Vascular surgery following - s/p I&D with wound VAC placement on 11/22. Cleared for discharge and patient already has wound vac delivered - Wound nurse following - ID consult appreciated. Recommend continuing vancomycin until 01/09 - Pain control - Patient to go home with [facility] for IV antibiotic infusion, however now the patient is stating he is not planning on staying in [place] long enough to finish the course of antibiotics. Case management to speak with the patient 2. RLE DVT - On heparin gtt but will transition to Lovenox should we bridge the patient to Coumadin - Now I am not so sure Coumadin will be the best option. We initially agreed upon it given the nature of reversibility should he need further surgical intervention. However, given that he is not planning on staying in [place] much longer and hasn't considered who he will follow-up if he goes to [place], I am not sure if he would be compliant with INR checks - Will have case management speak with patient - Will likely now discharge with either Xarelto or one of the other novel AOC 3. Non-small cell lung cancer (recurrent) - Followed as outpatient - Patient states he has not undergone chemotherapy since his recurrence - Continue home pain medication regimen of morphine, Percocet and Dilaudid DVT prophylaxis: On heparin gtt, transition to Lovenox this evening (start Lovenox within an hour of d/c'ing heparin) Discussed Condition With: The patient Discharge Planning: Anticipate D/C tomorrow with [facility]
[2017-12-02] MEDS: Heparin Drip 25,000 UNIT/250 ML BAG IV.CONT PRN (15:14)
[2017-12-02] MEDS: Enoxaparin Inj 80 MG/0.8 ML Syringe SQ SCH (20:45)
[2017-12-02] MEDS: traZODone 50 MG Tablet PO SCH (21:01)
[2017-12-03] MEDS: oxyCODONE/Acetaminophen 10/325 Tablet PO SCH ×3 (04:29→15:32)
[2017-12-03] MEDS: Vancomycin Inj 1,000 MG in Sodium Chlor 0.9% Inj 250 ML IV.SIG SCH ×2 (04:30→14:05)
[2017-12-03] MEDS: Morphine Sulfate 30 MG SR Tablet PO SCH ×2 (06:39→14:04)
[2017-12-03] MEDS: Furosemide 40 MG Tablet PO SCH (09:05)
[2017-12-03] MEDS: Gabapentin 300 MG Capsule PO SCH ×2 (09:05→13:01)
[2017-12-03] MEDS: Enoxaparin Inj 80 MG/0.8 ML Syringe SQ SCH (09:06)
[2017-12-03] MEDS: Collagenase Oint 30 GM Tube TOPICAL SCH (09:07)
--- NOTE | 2017-12-03 11:21 | P.DS ---
Date of admission: 11/21/17 20:30 Primary care physician: PROVIDER NON STAFF Attending physician on discharge: Tiffanie Cates Anticipated date of discharge: 12/03/17 Brief History from admission: 51-year-old male with a past medical history significant for recurrent non- small cell lung cancer and celiac disease presents to the emergency department for the evaluation of a right groin wound. The patient is one-month postop from a axillobifemoral bypass done by Dr. Hendrickson. The patient was sent by his wound doctor, Dr. Rubio, after having purulent fluid removed from an abscess of his right groin earlier today. The patient reports that 5 days ago he started having some swelling and pain in the right groin. He denies any fever/ chills. DS: Diagnosis - Discharge Diagnosis (1) PVD (peripheral vascular disease) Status: Acute (2) Abscess of groin, right Status: Acute (3) Right leg DVT Status: Acute DS: Summary Hospital Course: 51 year old male with recurrent NSCLC, PVD, and celiac disease admitted 11/21 for R groin abscess/graft infection one month postop from aortofemoral bypass. Vascular surgery and ID were consulted. Patient underwent I&D with wound VAC placement on 11/22. Wound culture grew MRSA. ID recommended vancomycin and rifampin until 01/09. [facility] was arranged for wound care with the wound vac and IV antibiotic administration. During his admission he was also found to have a chronic-appearing RLE DVT. He was treated with IV heparin, transitioned to Lovenox, and ultimately to Eliquis on discharge. He was discharged in stable condition on 12/03. - Time Spent with Patient Total time spent providing and/or coordinating discharge services: Greater than 30 minutes - Quality: VTE Deep Vein Thrombosis/Pulmonary Embolism Present on Admission: No Exam Vital signs: Vital Signs 12/02/17 12:00 12/02/17 16:00 12/02/17 20:00 Temperature 97.7 F 97.8 F 98.5 F Pulse Rate 113 H 112 H 113 H Respiratory Rate 17 17 17 Blood Pressure 97/62 L 120/65 98/63 L Pulse Oximetry 100 98 99 12/03/17 00:00 12/03/17 02:24 12/03/17 06:48 Temperature 98.2 F Pulse Rate 117 H Respiratory Rate 17 20 20 Blood Pressure 93/54 L Pulse Oximetry 98 12/03/17 08:00 Temperature 97.8 F Pulse Rate 111 H Respiratory Rate 17 Blood Pressure 102/62 Pulse Oximetry 99 Intake & Output 12/02/17 12/03/17 12/03/17 18:59 06:59 18:59 Intake Total 1580 / 1580 480 / 480 250 / 250 Output Total 500 / 500 510 / 510 Balance 1080 / 1080 -30 / -30 250 / 250 Weight 73.1 kg Intake: IV 500 / 500 250 / 250 Heparin/D5W 25,000 U/250 mL 25, 250 / 250 000 unit In 250 ml @ 1,300 UNITS/HR 13 mls/hr IV.CONT TITRATE PRN Rx#:[id number] Vancomycin Inj 1,000 MG In NS 250 / 250 250 / 250 Inj 250 ML @ 250 mls/hr IV.SIG Q12H ALANA Rx#:[id number] Oral 1080 / 1080 480 / 480 Output: Wound Drainage 510 / 510 Right Groin 510 / 510 Wound Vac Amount 500 / 500 Right Groin 500 / 500 Other: Mode Setting Right Groin Continuous Continuous # Voids 4 4 Date of Last Bowel Movement 12/02/17 # Bowel Movements 1 Narrative: GENERAL: WN, WD male sitting up in chair in NAD. SKIN: Warm and dry. Port R upper chest with no surrounding erythema. HEART: RRR no m/r/g. LUNGS: CTAB without wheezes or crackles. ABDOMEN: +BS, soft, NT, ND. EXTREMITIES: Wound vac over R groin. RLE with some erythema, swelling, and firmness of the calf. NEURO: Awake and alert. PSYCH: Appropriate mood and affect. Results Procedures completed during hospitalization: I&D R groin 11/22 Labs on day of discharge: Labs from last 24 hours 12/02/17 12/02/17 12/02/17 20:00 13:45 10:40 APTT 38.5 H 36.6 H D 123.5 H* D Preliminary micro results at discharge 11/22/17 10:45 Mycobacterial Culture - Preliminary Tissue - Groin No growth in 1 week 11/22/17 10:45 Fungal Culture - Preliminary Tissue - Groin No growth in 1 week 11/22/17 10:45 Mycobacterial Culture - Preliminary Abscess - Groin No growth in 1 week 11/22/17 10:45 Fungal Culture - Preliminary Abscess - Groin No growth in 1 week - Impressions ITS Impressions Venous Doppler Study 11/30/17 00:00 CONCLUSION: 1. 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 2. No sonographic evidence for left lower extremity DVT. Discharge Plan - Discharge Disposition Patient Disposition: /[facility] - Discharge Condition Condition: Stable - Discharge Order Discharge Orders: Discharge Order (Routine); Ordered 12/03/17 Ordered By: Tiffanie Cates Vascular Surgery Clear for Discharge (Routine); Ordered 11/29/17 Ordered By: Scooter Hendrickson - Discharge Details Anticipated Discharge Date: 12/03/17 - Physicians Team Primary Care Provider: NON STAFF,PROVIDER Attending Provider: Tiffanie Cates Other Providers: Yessy Moeller MD ; [facility] ; Gisele Urrutia MD ; [facility] ; Warren Quiles MD
[2017-12-03] MEDS: Morphine Inj 4 MG/ML Vial IV.PUSH PRN (12:00)
[2017-12-04] MEDS ORDERED: Pharmacy Ordered Lab Info OTHER ONE (02:45)
== END 2017-12-03 17:22 | disposition home health service (06) ==
LOC: NEPC 15:54 → NEDA 20:30 → NEPFCDU 21:57 → N07 11-22 09:59
PROVIDERS: ADMIT Family Medicine; ATTEND Family Medicine